=== PATIENT | female | born 1945 | race African-American/Black ===

== ENCOUNTER 2022-10-23 10:57 | Outpatient (OUT) | payer MEDICARE, SELFPAY ==
[2022-10-23 12:07] LABS: Basophils Percent Auto 0.8 % (0.2-2.0); Eosinophils Absolute Auto 0.1 10^3/uL (0.0-0.7); Hematocrit 39.2 % (36.0-48.0); Hemoglobin 12.3 g/dL (12.0-16.0); Immature Granulocytes Abs Auto 0.01 10^3/uL (0.00-0.03); Immature Granulocytes Pct Auto 0.3 % (0.0-0.5); Lymphocytes Absolute Auto 1.9 10^3/uL (1.2-3.8); Lymphocytes Percent Auto 52.7 % (20.5-60.0); Mean Corpuscular HGB Conc 31.4 g/dL (29.9-35.2); Mean Corpuscular Hemoglobin 27.7 pg (26.7-34.0); Mean Corpuscular Volume 88.3 fL (81.0-99.0); Mean Platelet Volume 9.4 fL (9.5-13.5); Monocytes Absolute Auto 0.3 10^3/uL (0.3-0.8); Neutrophils Absolute Auto 1.3 10^3/uL (1.4-6.5); Neutrophils Percent Auto 37.2 % (43.0-75.0); Platelet Count 305 10^3/uL (150-450); Red Blood Count 4.44 10^6/uL (4.20-5.40); White Blood Count 3.6 10^3/uL (4.0-11.0)
[2022-10-23 12:17] LABS: Estimated Average Glucose 97 mg/dL
[2022-10-23 12:27] LABS: Alanine Aminotransferase 16 U/L (14-59); Albumin Level 3.8 g/dL (3.4-5.0); Alkaline Phosphatase 60 U/L (46-116); Anion Gap 9.3; Aspartate Amino Transferase 12 U/L (15-37); BUN Creatinine Ratio 30.6; Bilirubin Total 0.6 mg/dL (0.2-1.0); Calcium 9.2 mg/dL (8.5-10.1); Carbon Dioxide 29.7 mmol/L (21.0-32.0); Chloride 107 mmol/L (98-107); Chol HDL Ratio 3.8; Cholesterol 208 mg/dL (<=200); Estimated GFR (African America >60 (>=60); Estimated GFR (Non-African Ame >60 (>=60); Free T3 2.56 pg/mL (2.18-3.98); Globulin 3.8 g/dL; Glucose 85 mg/dL (74-106); HDL Cholesterol 55 mg/dL (40-60); Sodium 142 mmol/L (136-145); Thyroid Stimulating Hormone 0.701 uIU/mL (0.358-3.740); Total Protein 7.6 g/dL (6.4-8.2); Triglycerides 67 mg/dL (<=150); VLDL CHOLESTEROL 13.4 mg/dL
[2022-10-24 14:10] LABS: Insulin 7.3 uIU/mL (2.6-24.9)
== END 2022-10-23 10:58 | disposition home or self-care (01) ==
LOC: LAB 11:03
PROVIDERS: PCP Family Medicine; Visit Provider Nurse Practitioner Family
DX: E78.5 Hyperlipidemia, unspecified (principal)
CPT/HCPCS: 36415; 80053; 80061; 82306; 83036; 83525; 83540; 84436; 84443; 84481; 85025

== ENCOUNTER 2022-11-02 11:50 | Outpatient (REF) | payer MEDICARE, SELFPAY ==
[2022-11-02 14:59] LABS: Occult Blood Negative
== END 2022-11-02 11:51 | disposition home or self-care (01) ==
LOC: LAB 11:50
PROVIDERS: PCP Family Medicine; Visit Provider Nurse Practitioner Family
DX: Z12.12 Encounter for screening for malignant neoplasm of rectum (principal)
CPT/HCPCS: G0328

== ENCOUNTER 2023-01-13 11:01 | Observation (INO) | payer MEDICARE, SELFPAY ==
[2023-01-13] VITALS (13 sets, daily range): BP systolic 129–162; BP diastolic 66–98; PULSE 58–82; RESP 16–20; TEMP 36.7–37.4; O2SAT 95–99; BMI 27.4; BMI 25.9
--- NOTE | 2023-01-13 11:33 | XR_ITS ---
The [address] [address] Patient Name: MATIAS MORTON MRN: [id number] date: 1945 Sex: F Assigned Patient Location: ER Current Patient Location: ER Accession/Order Number: [id number] Exam Date: 01/13/2023 11:40 Report Date: 01/13/2023 12:03 At the request of: JOSEF VELEZ Procedure: XR chest 1V EXAM: XR chest 1V at 1140 hours HISTORY: chest pain COMPARISON: 01/31/2022 TECHNIQUE: AP upright portable chest x-ray FINDINGS: The heart is not enlarged and the vasculature is not distended. No acute infiltrate, effusion or pneumothorax is identified. The osseous structures are grossly intact. XR/XR chest 1V IMPRESSION: No acute infiltrate or evidence of cardiac decompensation. The overall appearance of the chest is essentially unchanged. Electronically authenticated by: MICH GOMEZ Date: 01/13/2023 12:03
--- NOTE | 2023-01-13 11:33 | ECG_ITS ---
The [facility] Test Date: 2023-01-13 Pat Name: MATIAS MORTON Department: Room: - Gender: Female Compliance Auditor: : 1945 Requested By: PAIGE ORDONEZ Order Number: [id number] Reading MD: PAIGE ORDONEZ Measurements Intervals [place] Rate: 76 P: 39 NC: 144 QRS: -54 QRSD: 120 T: 51 QT: 402 QTc: 432 Interpretive Statements 1100 Sinus rhythm 2450 Right bundle branch block 2630 Left anterior fascicular block 3114 Cannot rule out anterior myocardial infarction, age undetermined 5222 Moderate voltage criteria for LVH, may be normal variant 9150 abnormal ECG No previous ECG available for comparison Electronically Signed On 01-15-2023 7:20:18 EST by PAIGE ORDONEZ
--- NOTE | 2023-01-13 11:34 | ED.CHESTPAI1 ---
HPI - Chest Pain General Chief Complaint: Chest Pain Stated Complaint: CHEST PAIN Time Seen by Provider: 01/13/23 11:29 Source: patient Mode of arrival: walk-in History of Present Illness HPI narrative: 77-year-old female presents to the emergency department for chest pain. She's been having it intermittently since yesterday. It lasts about ten minutes at a time and it feels like a pressure and she points to the left side of her chest. She does not have it now. It was happening during the night. No trauma or fever. No cough or injury or unusual activity. Related Data Home Medications Medication Instructions Recorded Confirmed amoxicillin 875 mg tablet 875 mg PO Q12H 01/13/23 01/13/23 simvastatin 20 mg tablet 20 mg PO Q24H 01/13/23 01/13/23 Allergies Allergy/AdvReac Type Severity Reaction Status Date / Time No Known Drug Allergies Allergy Verified 01/13/23 11:17 Review of Systems ROS Narrative A ten point review of systems is negative except as noted above. Exam Narrative Exam Narrative: Nurses note and vital signs reviewed and patient is not hypoxic. General: The patient appears well and in no apparent distress. Patient is resting comfortably on cart. Skin: Warm, dry, no pallor noted. There is no rash noted. Head: Normocephalic, atraumatic Eye: Normal conjunctiva, no drainage Ears, Nose, Mouth, and Throat: oral mucosa is moist. Nares patent. Cardiovascular: Regular Rate and Rhythm Respiratory: Patient is in no distress, no accessory muscle use, lungs are clear to auscultation, no wheezing, rales or rhonchi Back: non-tender GI: soft and nontender Musculoskeletal: The patient has no evidence of calf tenderness, no pitting edema, symmetrical pulses noted bilaterally Neurological: A&O, normal speech Psychiatric: Cooperative Constitutional Vital Signs, click to edit/add: Last Vital Signs Temp 99.4 F 01/13/23 11:07 Pulse 78 01/13/23 11:07 Resp 16 01/13/23 11:07 BP 158/98 H 01/13/23 11:07 Pulse Ox 99 01/13/23 11:18 O2 Del Method Room Air 01/13/23 11:18 Course Vital Signs Vital signs: Vital Signs Temperature 99.4 F 01/13/23 11:07 Pulse Rate 78 01/13/23 11:07 Respiratory Rate 16 01/13/23 11:07 Blood Pressure 158/98 H 01/13/23 11:07 Pulse Oximetry 99 01/13/23 11:07 Oxygen Delivery Method Room Air 01/13/23 11:07 Temperature 99.4 F 01/13/23 11:07 Pulse Rate 78 01/13/23 11:07 Respiratory Rate 16 01/13/23 11:07 Blood Pressure 158/98 H 01/13/23 11:07 Pulse Oximetry 99 01/13/23 11:18 Oxygen Delivery Method Room Air 01/13/23 11:18 MDM - Chest Pain MDM Narrative Medical decision making narrative: her initial workup is negative including troponin. EKG shows no acute findings. She is symptom-free now. She was given aspirin here. She has a history of arthritis and requested medication for that and she was given IV Toradol for the arthritic pain. Case discussed with her PCP and she's being admitted. Findings are discussed with the patient and her . Differential Diagnosis Differential diagnosis: Likely pneumothorax, stable angina, unstable angina pectoris, atypical chest pain, st elevation myocardial infarction and chest pain Lab Data Labs: Lab Results 01/13/23 Range/Units 11:18 WBC 3.6 L (4.0-11.0) 10^3/uL RBC 4.57 (4.20-5.40) 10^6/uL Hgb 12.6 (12.0-16.0) g/dL Hct 41.2 (36.0-48.0) % MCV 90.2 (81.0-99.0) fL MCH 27.6 (26.7-34.0) pg MCHC 30.6 (29.9-35.2) g/dL RDW 13.7 (11.0-15.0) % Plt Count 308 (150-450) 10^3/uL MPV 9.5 (9.5-13.5) fL Neut % (Auto) 43.3 (43.0-75.0) % Lymph % (Auto) 49.2 (20.5-60.0) % Summers % (Auto) 5.8 (1.7-12.0) % Eos % (Auto) 1.1 (0.9-7.0) % Baso % (Auto) 0.6 (0.2-2.0) % Neut # (Auto) 1.6 (1.4-6.5) 10^3/uL Lymph # (Auto) 1.8 (1.2-3.8) 10^3/uL Summers # (Auto) 0.2 L (0.3-0.8) 10^3/uL Eos # (Auto) 0.0 (0.0-0.7) 10^3/uL Baso # (Auto) 0.0 (0.0-0.1) 10^3/uL Abs Immat Gran (auto) 0.00 (0.00-0.03) 10^3/uL Imm/Tot Granulo (auto) 0.0 (0.0-0.5) % Sodium 143 (136-145) mmol/L Potassium 3.4 L (3.5-5.1) mmol/L Chloride 107 (98-107) mmol/L Carbon Dioxide 30.2 (21.0-32.0) mmol/L Anion Gap 9.2 BUN 23.0 H (7.0-18.0) mg/dL Creatinine 0.76 (0.55-1.02) mg/dL Est GFR ( Amer) >60 (>=60) Est GFR (Non-Af Amer) >60 (>=60) BUN/Creatinine Ratio 30.3 Glucose 90 (74-106) mg/dL Calcium 9.3 (8.5-10.1) mg/dL Troponin I High Sens 8.5 (4.0-51.3) pg/mL Imaging Data Chest x-ray: Radiologist's impression: Procedure: XR chest 1V EXAM: XR chest 1V at 1140 hours HISTORY: chest pain COMPARISON: 01/31/2022 TECHNIQUE: AP upright portable chest x-ray FINDINGS: The heart is not enlarged and the vasculature is not distended. No acute infiltrate, effusion or pneumothorax is identified. The osseous structures are grossly intact. IMPRESSION: No acute infiltrate or evidence of cardiac decompensation. The overall appearance of the chest is essentially unchanged. Electronically authenticated by: MICH GOMEZ Date: 01/13/2023 12:03 ECG Data Attestation: I personally reviewed and interpreted this ECG as follows: (EKG on my interpretation shows sinus rhythm with a rate of 76 and a right bundle-branch block. No ST segment elevation.) Heart Score History: Moderately Suspicious ECG: Normal Age: >65 years Risk Factors: >3 Risk Factors/ HX of CAD:2 Troponin: <Normal Limit Total Heart Score Recommendations & Risks:: 5 Discharge Plan Discharge Chief Complaint: Chest Pain Clinical Impression: Chest pain Patient Disposition: Admitted as Observation Time of Disposition Decision: 12:18 Condition: Good Prescriptions / Home Meds: No Action amoxicillin 875 mg tablet 875 mg PO Q12H simvastatin 20 mg tablet 20 mg PO Q24H Referrals: Cristian Hung MD [Primary Care Provider] - 1 week
[2023-01-13] MEDS: ASPIRIN 81 MG TAB.CHEW 324 MG PO (11:37)
[2023-01-13 11:40] LABS: Basophils Percent Auto 0.6 % (0.2-2.0); Eosinophils Percent Auto 1.1 % (0.9-7.0); Hematocrit 41.2 % (36.0-48.0); Hemoglobin 12.6 g/dL (12.0-16.0); Lymphocytes Absolute Auto 1.8 10^3/uL (1.2-3.8); Lymphocytes Percent Auto 49.2 % (20.5-60.0); Mean Corpuscular HGB Conc 30.6 g/dL (29.9-35.2); Mean Corpuscular Hemoglobin 27.6 pg (26.7-34.0); Mean Corpuscular Volume 90.2 fL (81.0-99.0); Mean Platelet Volume 9.5 fL (9.5-13.5); Monocytes Absolute Auto 0.2 10^3/uL (0.3-0.8); Monocytes Percent Auto 5.8 % (1.7-12.0); Neutrophils Absolute Auto 1.6 10^3/uL (1.4-6.5); Neutrophils Percent Auto 43.3 % (43.0-75.0); Platelet Count 308 10^3/uL (150-450); Red Blood Count 4.57 10^6/uL (4.20-5.40); Red Cell Distribution Width 13.7 % (11.0-15.0); White Blood Count 3.6 10^3/uL (4.0-11.0)
[2023-01-13 11:56] LABS: Anion Gap 9.2; BUN Creatinine Ratio 30.3; Calcium 9.3 mg/dL (8.5-10.1); Carbon Dioxide 30.2 mmol/L (21.0-32.0); Chloride 107 mmol/L (98-107); Estimated GFR (African America >60 (>=60); Estimated GFR (Non-African Ame >60 (>=60); Glucose 90 mg/dL (74-106); Potassium 3.4 mmol/L (3.5-5.1); Sodium 143 mmol/L (136-145); Troponin I High Sensitivity 8.5 pg/mL (4.0-51.3)
[2023-01-13] MEDS: KETOROLAC TROMETHAMINE 30 MG/ML VIAL IVP (12:19)
--- NOTE | 2023-01-13 12:57 | CA_ITS ---
Patient Name: MATIAS MORTON MR#: [id number] : 1945 Exam Date: 01/13/2023 Ordering Doctor: DR Cristian Hung . ECHOCARDIOGRAM REPORT PROCEDURE: CA ECHO DOPPLER COMPLETE INDICATIONS: Dyspnea COMPARISON: None. DESCRIPTION: COMPLETE ECHOCARDIOGRAM Real-time transthoracic echocardiography with 2D, M-mode, spectral and color flow Doppler performed. QUALITY: Technical quality was good. LEFT VENTRICLE: Normal chamber size. Borderline left ventricular hypertrophy. Global left ventricular systolic function is normal. LV EF: Visual estimation of left ventricular ejection fraction is 65% DIASTOLIC: Diastolic function is indeterminate. ATRIAL SEPTUM: LEFT ATRIUM: Mild dilatation. RIGHT ATRIUM: Mild dilatation. RIGHT VENTRICLE: Normal chamber size. Normal right ventricular systolic function. TRICUSPID VALVE: Normal mobility and thickness. No stenosis with mild regurgitation. No evidence of pulmonary hypertension. RVSP 28 mmHg MITRAL VALVE: Normal mobility and thickness. No evidence of mitral valve stenosis. There is no mitral annular calcification. Mild mitral regurgitation. AORTIC VALVE: Normal trileaflet appearance. No visible sclerosis. Normal leaflet mobility. No evidence of aortic valve stenosis. Mild aortic regurgitation. AORTIC ROOT: Normal diameter and appearance. PULMONIC VALVE: Normal thickness and mobility. No stenosis. Mild regurgitation. PERICARDIUM: No evidence of pericardial effusion. IVC: Collapses with inspirations. PLEURA: CONCLUSION: 1. Normal ventricular systolic function. LVEF is 65%. 2. Mild biatrial dilatation. 3. Mild mitral, aortic, tricuspid and pulmonary regurgitation. 4. Normal right-sided pressures. 5. No pericardial effusion. Adult Echocardiography Procedure Report Left Ventricle LVEDD (3.7 - 5.6 cm): 4.22 cm LVESD (2.2 - 4.0 cm): 2.82 cm LVIVS thickness (0.6 - 1.2 cm): 1.10 cm LVPW thickness (0.5 - 1.0 cm): 1.00 cm e': 0.08 m/s E - e': 8.32 LVOT Max Gradient: 7.07 mm[Hg] LVOT Area (cm2): 1.33 m/s Peak Velocity (LVOT): 1.33 m/s Mean Velocity (LVOT): 0.81 m/s LVOT Diameter 1.87 cm Left Ventricular Ejection Fraction: 65% Left Atrium LA Volume Index (2D A2C): 39.66 ml/m2 Left Atrium Systolic Dimension: 3.65 cm Mitral Valve MV E to A Ratio: 0.52 Mitral Valve A-Wave Peak Velocity: 1.24 m/s Mitral Valve E-Wave Peak Velocity: 0.64 m/s Right Ventricle RV Internal Diastolic Dimension: 3.35 cm Aorta AO Root Diam: 2.99 cm Ascending Ao Diam: 3.07 cm Aortic Valve AoV Area (Peak Robinson): 2.59 cm2, 2.59 cm2 AoV Area (VTI): 2.24 cm2, 2.24 cm2 Peak Velocity(Antegrade Flow): 1.41 m/s Peak Gradient(Antegrade Flow): 7.94 mm[Hg] Mean Velocity(Antegrade Flow): 0.95 m/s Mean Gradient(Antegrade Flow): 4.13 mm[Hg] Velocity Time Integral: 35.98 cm Tricuspid Valve Peak Velocity (Regurgitant Flow): 2.33 m/s, 2.52 m/s, 2.17 m/s Pulmonic Valve Mean Gradient: 2.57 mm[Hg], 2.27 mm[Hg] Mean Velocity: 0.76 m/s, 0.70 m/s Peak Velocity: 1.07 m/s Peak Gradient: 4.97 mm[Hg], 4.21 mm[Hg] Right Atrium Right Atrium Systolic Pressure: 51.71 ml, 51.71 ml Dictated by: Jam Severino M.D. on 01/13/2023 at 19:32 Approved by: Jam Severino M.D. on 01/13/2023 at 19:36
[2023-01-13 13:57] LABS: SARS-CoV-2 Ag NEGATIVE (NEGATIVE)
[2023-01-13 14:17] LABS: Troponin I High Sensitivity 11.1 pg/mL (4.0-51.3)
[2023-01-13 14:19] LABS: Magnesium 2.3 mg/dL (1.8-2.4)
[2023-01-13 17:03] LABS: Troponin I High Sensitivity 11.9 pg/mL (4.0-51.3)
--- NOTE | 2023-01-13 17:51 | P.HP_ITS ---
H&P: HPI History of Present Illness Chief complaint: CHEST PAIN Narrative: Presented to the emergency room with increasing episodes of chest pain. Lasting 5 to 6 minutes at a time. Worse with activity. In ER initial workup was unremarkable. Patient admitted for workup and treatment of same. No history of coronary artery disease but she does have a history of hypercholesterolemia. Non-smoker. Review of Systems ROS Status of ROS 10 or more systems reviewed and unremarkable except as noted in history and below PFSH PFSH Medical History (Updated 01/13/23 @ 14:11 by Suzie Sandhu) GERD (gastroesophageal reflux disease) ?K21.9 - Gastro-esophageal reflux disease without esophagitis (ICD-10) High cholesterol ?E78.00 - Pure hypercholesterolemia, unspecified (ICD-10) Surgical History (Updated 01/13/23 @ 15:37 by Suzie Sandhu) H/O: hysterectomy ?Z90.710 - Acquired absence of both cervix and uterus (ICD-10) Family History (Updated 01/13/23 @ 15:40 by Suzie Sandhu) Father Family history of myocardial infarction Mother Family history of stroke Social History (Updated 01/13/23 @ 15:41 by Suzie Sandhu) Within the past year, how often did you have a drink containing alcohol: never Score interpretation: A score less than 3 is consistent with normal alcohol consumption. Smoking status: Never smoker Non-prescribed substance use: denies use Previous occupational history: retired Highest level of school completed/degree received: 11th grade Are you now , , , , never or living with a partner: Little interest or pleasure in doing things: not at all Feeling down, depressed, or hopeless: not at all Feel stressed/tense/nervous/anxious/difficulty sleeping: only a little Due to disability, difficulty making decisions: No Do you think of yourself as: straight/heterosexual Meds Home Medications and Allergies Home Medications Medication Instructions Recorded Confirmed Type amoxicillin 875 mg tablet 875 mg PO Q12H 01/13/23 01/13/23 History omeprazole 40 mg capsule,delayed 40 mg PO DAILY 01/13/23 01/13/23 History release simvastatin 20 mg tablet 20 mg PO Q24H 01/13/23 01/13/23 History Allergies Allergy/AdvReac Type Severity Reaction Status Date / Time No Known Drug Allergies Allergy Verified 01/13/23 11:17 Exam Constitutional Vital Signs, click to edit/add: Last Vital Signs Temp 98.1 F 01/13/23 13:00 Pulse 68 01/13/23 15:54 Resp 20 01/13/23 13:00 BP 162/86 H 01/13/23 13:00 Pulse Ox 99 01/13/23 15:27 O2 Del Method Room Air 01/13/23 15:27 Documenting provider has reviewed patient's vital signs: yes Common normals: no apparent distress HENAZ Common normals: normocephalic and moist oral mucous membranes Chest Common normals: inspection of chest normal and palpation of chest normal Respiratory Common normals: normal respiratory effort and no use of accessory muscles Cardio Common normals: no JVD, regular rate, regular rhythm and no murmurs GI Common normals: Normal to inspection, nondistended, normoactive bowel sounds present Extremity Common normals: normal to inspection Results Labs Labs: Short CBC 01/13/23 Range/Units 11:18 WBC 3.6 L (4.0-11.0) 10^3/uL Hgb 12.6 (12.0-16.0) g/dL Hct 41.2 (36.0-48.0) % Plt Count 308 (150-450) 10^3/uL BMP 01/13/23 11:18 Sodium 143 Potassium 3.4 L Chloride 107 Carbon Dioxide 30.2 BUN 23.0 H Creatinine 0.76 Glucose 90 Calcium 9.3 Assessment and Plan Assessment and Plan (1) Chest pain: (2) GERD (gastroesophageal reflux disease): Plan Patient with accelerating episodes of chest pain. Worse with activity. Myocardial markers to rule out any myocardial infarction possibilities. Possibly still ischemia. Place patient on aspirin. Start nitrates.. Hypokalemia-supplement Neutropenia-possibly viral related-check COVID test GERD-add IV Protonix Uncontrolled blood pressure on admission. That is improved. Continue to monitor, Maintain patient observation status. If all the testing turns out well in the morning she will be discharged home
[2023-01-13] MEDS: ISOSORBIDE MONONITRATE 30 MG TAB.ER.24H PO (20:26)
[2023-01-13] MEDS: POTASSIUM CHLORIDE 10 MEQ ER TABLET 20 MEQ PO (20:27)
[2023-01-13] MEDS: PROSTAT 15 GM PROTEIN/100 CAL 30 ML LIQUID PACKET FEED TUBE (20:27)
[2023-01-13] MEDS: PANTOPRAZOLE SODIUM 40 MG VIAL IV (20:28)
[2023-01-14 01:39] VITALS: PULSE 64
[2023-01-14 03:00] VITALS: PULSE 62
[2023-01-14 05:00] VITALS: PULSE 70
[2023-01-14 05:28] VITALS: BP 121/76; PULSE 60; RESP 18; TEMP 36.7; O2SAT 96
[2023-01-14 05:28] LABS: Eosinophils Absolute Auto 0.1 10^3/uL (0.0-0.7); Eosinophils Percent Auto 1.9 % (0.9-7.0); Hematocrit 35.8 % (36.0-48.0); Hemoglobin 10.9 g/dL (12.0-16.0); Lymphocytes Absolute Auto 2.3 10^3/uL (1.2-3.8); Lymphocytes Percent Auto 54.5 % (20.5-60.0); Mean Corpuscular HGB Conc 30.4 g/dL (29.9-35.2); Mean Corpuscular Hemoglobin 27.7 pg (26.7-34.0); Mean Corpuscular Volume 90.9 fL (81.0-99.0); Mean Platelet Volume 9.8 fL (9.5-13.5); Monocytes Absolute Auto 0.3 10^3/uL (0.3-0.8); Monocytes Percent Auto 7.7 % (1.7-12.0); Neutrophils Absolute Auto 1.5 10^3/uL (1.4-6.5); Neutrophils Percent Auto 34.9 % (43.0-75.0); Platelet Count 286 10^3/uL (150-450); Red Blood Count 3.94 10^6/uL (4.20-5.40); Red Cell Distribution Width 13.9 % (11.0-15.0); White Blood Count 4.2 10^3/uL (4.0-11.0)
[2023-01-14] MEDS: ACETAMINOPHEN 500 MG TABLET 1000 MG PO (05:38)
[2023-01-14 05:42] LABS: Anion Gap 10.9; BUN Creatinine Ratio 42.9; Calcium 8.8 mg/dL (8.5-10.1); Carbon Dioxide 26.3 mmol/L (21.0-32.0); Chloride 110 mmol/L (98-107); Estimated GFR (African America >60 (>=60); Estimated GFR (Non-African Ame >60 (>=60); Glucose 90 mg/dL (74-106); Potassium 4.2 mmol/L (3.5-5.1); Sodium 143 mmol/L (136-145); Troponin I High Sensitivity 6.3 pg/mL (4.0-51.3)
--- NOTE | 2023-01-14 07:25 | P.DS_ITS ---
DS: Providers Provider Date of admission: 01/13/23 12:11 Primary care physician: Cristian Hung MD Consults: 01/13/23 12:57 Occupational Therapy Eval and Treat Routine Reason for consultation: Only if needed for Rehab Has provider been notified: No Physical Therapy Eval and Treat Routine Reason for consultation: Eval and Treat Has provider been notified: No DS: Diagnosis Discharge Diagnosis (1) Chest pain: (2) GERD (gastroesophageal reflux disease): Plan Patient with accelerating episodes of chest pain. Worse with activity. Hypokalemia Neutropenia GERD Uncontrolled blood pressure on admission Possible acute blood loss anemia, hemoglobin down almost 2 g from admission DS: Summary Hospital Course Hospital Course: Patient presented to the emergency room with increasing episodes of chest pain. At last between 8 to 10 minutes and then resolved with rest. She has had some increased pain with eating as well but did not feel like her chest pain she was experiencing on admission. Patient was admitted overnight. High-sensitivity troponins completed with no elevation. BNP was normal. Her chest pain had resolved this morning. At this point will have patient ambulate in the hallway. If she is stable with no chest pain. She can be discharged home in improving condition. Medications see list. Follow-up with her PCP for outpatient stress testing. Echocardiogram was reviewed and was normal. She did have some borderline elevation or high blood pressure on admission but that is improved with maintenance medications. Neutropenia has resolved. Did have a drop in hemoglobin which needs to be followed up on as an outpatient as well. Hypokal emia resolved as well. Time Spent with Patient Time attestation: Total time spent providing and/or coordinating discharge services: Exam Constitutional Vital Signs, click to edit/add: Last Vital Signs Temp 98.1 F 01/14/23 05:28 Pulse 60 01/14/23 05:28 Resp 18 01/14/23 05:28 BP 121/76 01/14/23 05:28 Pulse Ox 96 01/14/23 05:28 O2 Del Method Room Air 01/14/23 05:28 Documenting provider has reviewed patient's vital signs: yes Common normals: no apparent distress [facility] Common normals: normocephalic and moist oral mucous membranes Chest Common normals: inspection of chest normal and palpation of chest normal Respiratory Common normals: normal respiratory effort and no use of accessory muscles Cardio Common normals: no JVD, regular rate, regular rhythm and no murmurs GI Common normals: Normal to inspection, nondistended, normoactive bowel sounds present Extremity Common normals: normal to inspection DS: Data Data Completed and Pending Labs on day of discharge: Labs from last 24 hours 01/14/23 01/13/23 01/13/23 03:57 16:32 13:10 WBC 4.2 RBC 3.94 L Hgb 10.9 L Hct 35.8 L MCV 90.9 MCH 27.7 MCHC 30.4 RDW 13.9 Plt Count 286 MPV 9.8 Neut % (Auto) 34.9 L Lymph % (Auto) 54.5 Lane % (Auto) 7.7 Eos % (Auto) 1.9 Baso % (Auto) 1.0 Neut # (Auto) 1.5 Lymph # (Auto) 2.3 Lane # (Auto) 0.3 Eos # (Auto) 0.1 Baso # (Auto) 0.0 Abs Immat Gran (auto) 0.00 Imm/Tot Granulo (auto) 0.0 Sodium 143 Potassium 4.2 Chloride 110 H Carbon Dioxide 26.3 Anion Gap 10.9 BUN 30.0 H Creatinine 0.70 Est GFR ( Amer) >60 Est GFR (Non-Af Amer) >60 BUN/Creatinine Ratio 42.9 Glucose 90 Calcium 8.8 Magnesium 2.3 Troponin I High Sens 6.3 11.9 11.1 NT-Pro-B Natriuret Pep 61.0 SARS-CoV-2 (PCR) Negative 01/13/23 11:18 WBC 3.6 L RBC 4.57 Hgb 12.6 Hct 41.2 MCV 90.2 MCH 27.6 MCHC 30.6 RDW 13.7 Plt Count 308 MPV 9.5 Neut % (Auto) 43.3 Lymph % (Auto) 49.2 Lane % (Auto) 5.8 Eos % (Auto) 1.1 Baso % (Auto) 0.6 Neut # (Auto) 1.6 Lymph # (Auto) 1.8 Lane # (Auto) 0.2 L Eos # (Auto) 0.0 Baso # (Auto) 0.0 Abs Immat Gran (auto) 0.00 Imm/Tot Granulo (auto) 0.0 Sodium 143 Potassium 3.4 L Chloride 107 Carbon Dioxide 30.2 Anion Gap 9.2 BUN 23.0 H Creatinine 0.76 Est GFR ( Amer) >60 Est GFR (Non-Af Amer) >60 BUN/Creatinine Ratio 30.3 Glucose 90 Calcium 9.3 Magnesium Troponin I High Sens 8.5 NT-Pro-B Natriuret Pep SARS-CoV-2 (PCR) Discharge Plan Discharge Disposition: Home, Self-Care Condition: Good Discharge Medications: New meloxicam 7.5 mg tablet 7.5 mg PO DAILY PRN (Reason: arthritis) Qty: 14 1RF Continued amoxicillin 875 mg tablet 875 mg PO Q12H Patient Comments: 01/05/23 FOR 10 DAYS simvastatin 20 mg tablet 20 mg PO Q24H omeprazole 40 mg capsule,delayed release(DR/EC) 40 mg PO DAILY Forms: Portal Instructions
[2023-01-14 07:59] VITALS: PULSE 60
[2023-01-14] MEDS: ISOSORBIDE MONONITRATE 30 MG TAB.ER.24H PO (09:03)
[2023-01-14] MEDS: ASPIRIN 81 MG TABLET.DR PO (09:03)
[2023-01-14] MEDS: POTASSIUM CHLORIDE 10 MEQ ER TABLET 20 MEQ PO (09:03)
[2023-01-14] MEDS: PROSTAT 15 GM PROTEIN/100 CAL 30 ML LIQUID PACKET FEED TUBE (09:04)
--- NOTE | 2023-01-14 09:12 | CM.NOTE ---
Medicare Outpatient Observation Notice discussed with pt, pt verbalizes understanding and signs paper. Original given to pt and copy placed on pt's chart.
[2023-01-14 09:56] VITALS: PULSE 70
[2023-01-14 15:04] LABS: SARS-CoV-2 NAA NOT DETECTED (NOT DETECTE)
== END 2023-01-14 10:37 | disposition home or self-care (01) ==
LOC: ER 12:18 → MS 12:22
PROVIDERS: Admitting Provider Family Medicine; Emergency Provider Emergency Medicine; PCP Family Medicine; Visit Provider Family Medicine
DX: R07.9 Chest pain, unspecified (principal); E87.6 Hypokalemia; D70.9 Neutropenia, unspecified; K21.9 Gastro-esophageal reflux disease without esophagitis; I10 Essential (primary) hypertension; E78.00 Pure hypercholesterolemia, unspecified; D64.9 Anemia, unspecified; R06.00 Dyspnea, unspecified; Z20.822 Contact with and (suspected) exposure to COVID-19; Z79.899 Other long term (current) drug therapy; Z90.710 Acquired absence of both cervix and uterus
CPT/HCPCS: 36415; 71045; 80048; 83735; 83880; 84484; 85025; 87635; 87811; 93005; 93306; 94667; 94761; 96374; 96375; 99285; G0328; G0378

== ENCOUNTER 2023-02-24 08:20 | Outpatient (OUT) | payer MEDICARE, SELFPAY ==
--- NOTE | 2023-02-24 08:23 | MM_ITS ---
Patient Name: MATIAS MORTON MR#: [id number] : 1945 Exam Date: 02/24/2023 Ordering Doctor: DR Cristian Hung . RADIOLOGY REPORT PROCEDURE: MM TOMOSYNTHESIS SCREENING BI COMPARISON: MG MAMM SCREEN 3D PHYLLIS CAD, 02/23/2022. MG MAMM SCREEN PHYLLIS W CAD, 02/20/2021. MG MAMM SCREEN PHYLLIS W CAD, 01/29/2020. INDICATIONS: Screening Calculator Name NCI Breast Cancer Risk Assessment Tool 5 Year Breast Cancer Risk 1.70% Lifetime Breast Cancer Risk 3.00% Personal Breast Cancer No Personal Ovarian Cancer No Treatments None Family Cancers None LOCATION: [facility] BREAST COMPOSITION: Scattered areas fibroglandular density. FINDINGS: DIAGNOSTIC CATEGORY 1--NEGATIVE. RIGHT BREAST: No significant suspicious finding. No significant change has occurred. LEFT BREAST: No significant suspicious finding. No significant change has occurred. RECOMMENDATIONS: ROUTINE MAMMOGRAM AND CLINICAL EVALUATION IN 12 MONTHS. PLEASE NOTE: A NORMAL MAMMOGRAM DOES NOT EXCLUDE THE POSSIBILITY OF BREAST CANCER. A CLINICALLY SUSPICIOUS PALPABLE LUMP SHOULD BE BIOPSIED. Dictated by: Angel Madera M.D. on 02/24/2023 at 10:44 Approved by: Angel Madera M.D. on 02/24/2023 at 10:51
--- OUTSIDE RECORDS SUMMARY | 2023-02-24 08:23 | XMS_ITS | CCD ---
Author Name Unknown Address [address] [facility] [address] [place] [id number] Organization [facility] Care Team Providers Care Surveyor Mine Name Role Phone JOSÉ LUIS ., DR GIBSON Admitting Unavailable EDUARY ., DR GIBSON Attending Unavailable HOY ., DR GIBSON Primary Care Unavailable EDUARY ., DR GIBSON Consulting Unavailable MAURICE, DR SANIYA Theodore Consulting Unavailable JORGE ., DR XIONG Admitting Unavailable JORGE ., DR XIONG Attending Unavailable HOY ., DR GIBSON Primary Care Unavailable JORGE ., DR XIONG Consulting Unavailable RADHA, DR PINKY Osborn Consulting Unavailable EDUARY ., DR GIBSON Primary Care Unavailable SONALI ., MONICA Admitting Unavailable SONALI ., MONICA Attending Unavailable SONALI ., MONICA Consulting Unavailable Saniya Victor Consulting Unavailable SAIRA VAUGHAN Consulting Unavailable JOSÉ LUIS ., DR GIBSON Primary Care Unavailable DIAB ., CECILLE Admitting Unavailable DIAB ., CECILLE Attending Unavailable DIAB ., CECILLE Consulting Unavailable JOSÉ LUIS ., DR GIBSON Primary Care Unavailable JOSEF VELEZ Admitting Unavailable JOSEF VELEZ Attending Unavailable RADHA, DR PINKY Osborn Consulting Unavailable JOSEF VELEZ Consulting Unavailable Problems Active Problems Problem Classification Problem Date Documented Date Episodic/Chronic Disorders of lipid metabolism (1 source) Pure hypercholesterolemia, unspecified; Translations: [PURE HYPERCHOLESTEROLEMIA UNSPEC] Onset: 3 Chronic Essential hypertension (1 source) Essential (primary) hypertension; Translations: [ESSENTIAL PRIMARY HYPERTENSION] Onset: 3 Chronic Headache; including migraine (1 source) Headache; including migraine; Translations: [HEADACHE UNSPECIFIED] Onset: 2 Other female genital disorders (4 sources) Other specified conditions associated with female genital organs and menstrual cycle; Translations: [OTH SPEC COND FE GEN ORG MENST CYCL] Onset: 3 Episodic Other liver diseases (1 source) Fatty (change of) liver, not elsewhere classified; Translations: [FATTY CHANGE LIVER NEC] Onset: 3 Chronic Unclassified (1 source) CONTACT W/AND (SUSP) EXPOS COVID-19; Translations: [CONTACT W/AND (SUSP) EXPOS COVID-19] Onset: 2 Past or Other Problems Problem Classification Problem Date Documented Da te Episodic/Chronic Abdominal pain (7 sources) Lower abdominal pain, unspecified; Translations: [Unspecified abdominal pain] Onset: 01-31-2022 Episodic Nausea and vomiting (1 source) Nausea; Translations: [NAUSEA] Onset: 02-03-2022 Episodic Other aftercare (1 source) 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; Translations: [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 THERAPY] Onset: 03-09-2022 Episodic Other gastrointestinal disorders (1 source) Constipation, unspecified; Translations: [CONSTIPATION UNSPECIFIED] Onset: 03-09-2022 Episodic Other gastrointestinal disorders (3 sources) Diarrhea, unspecified; Translations: [DIARRHEA UNSPECIFIED] Onset: 08-22-2021 Episodic Other screening for suspected conditions (not mental disorders or infectious disease) (4 sources) Encounter for screening mammogram for malignant neoplasm of breast; Translations: [ENC SCR MAMMO MALIG NEOPLASM BREAST] Onset: 02-23-2022 Episodic Urinary tract infections (1 source) Urinary tract infection, site not specified; Translations: [UTI SITE NOT SPECIFIED] Onset: 02-03-2022 Episodic Results Test Name Value Interpretation Reference Range Facil ity US PELVIS TRANSVAGon 023 US PELVIS TRANSVAG EXAMINATION: US PELVIS TRANSVAG HISTORY: Disorder of female genital organs COMPARISON: No relevant comparison available. TECHNIQUE: Transabdominal and transvaginal sonographic examination. FINDINGS: UTERUS: Prior hysterectomy. RIGHT OVARY: Not seen. LEFT OVARY: Not seen. CUL-DE-SAC: Unremarkable. No significant free fluid. BLADDER: Unremarkable. OTHER: None. IMPRESSION: 1. Prior hysterectomy. 2. No suspicious findings. Electronically authenticated by: PINKY GARCIA Date: 2022-06-15 15:[address] [facility] MG MAMM SCREEN 3D PHYLLIS CADon 02-23-2022 MG MAMM SCREEN 3D PHYLLIS CAD Patient: SELENEMATIAS Exam Date: 02/23/2022 : 1945 Gender:F Ordering : DR PAIGE ORDONEZ . Admission #: [id number] Family : Order #: [id number] CLICK HERE TO VIEW EXAM RADIOLOGY REPORT PROCEDURE: MAMMOGRAM SCREENING 3D BILATERAL CAD COMPARISON: MG MAMM SCREEN PHYLLIS W CAD, 02/20/2021. MG MAMM SCREEN PHYLLIS W CAD, 01/29/2020. INDICATIONS: Screening mammography Calculator Name NCI Breast Cancer Risk Assessment Tool 5 Year Breast Cancer Risk 1.70% Lifetime Breast Cancer Risk 3.30% Personal Breast Cancer No Personal Ovarian Cancer No Treatments None Family Cancers None LOCATION: [facility] BREAST COMPOSITION: Scattered areas fibroglandular density. FINDINGS: DIAGNOSTIC CATEGORY 1--NEGATIVE. NO CHANGE FROM COMPARISON ASSESSMENT. Scattered benign-appearing calcifications are present. Scattered benign-appearing lymph nodes are present. RIGHT BREAST: No significant suspicious finding. LEFT BREAST: No significant suspicious finding. RECOMMENDATIONS: ROUTINE MAMMOGRAM AND CLINICAL EVALUATION IN 12 MONTHS. PLEASE NOTE: A NORMAL MAMMOGRAM DOES NOT EXCLUDE THE POSSIBILITY OF BREAST CANCER. A CLINICALLY SUSPICIOUS PALPABLE LUMP SHOULD BE BIOPSIED. Dictated by: Saniya Torres MD on 02/24/2022 at 10:58 Approved by: Saniya Torres MD on 02/24/2022 at 11:01 Normal [facility] CARDIAC ROLANDO ADMITon 022 CK [Catalytic activity/Vol] 87 U/L Normal 26-[address] [facility] Comment on above: Performed By: #### C MADM, LIPA, CMP #### [facility] [address] [address] [address] Suraj Choe CK.MB [Mass/Vol] 0.92 ng/mL Normal <=3.60 [facility] Comment on above: Performed By: #### C MADM, LIPA, CMP #### [facility] [address] [place], [place] [address] Dr. Suraj Choe HSTROP 7.5 pg/mL Normal 4.0-51.[address] [facility] Comment on above: Result Comment: CUT- OFF POINTS HAVE BEEN ESTABLISHED BASED ON THE FOURTH UNIVERSAL DEFINITIONS OF MYOCARDIAL INFARCTION. THE UPPER REFERENCE LIMIT (URL) OF TROPONIN, DEFINED THE 99TH PERCENTILE OF cTnI DISTRIBUTION IN A REFERENCE POPULATION, HAS BEEN CONFIRMED THE DECISION THRESHOLD FOR [place] DIAGNOSIS. Performed By: #### C DANIEL BAKER, CMP #### [facility] [address] [address] [address] Suraj Choe NICHOLAS 28 ng/mL Normal 9-[address] [facility] Comment on above: Performed By: #### C DANIEL BAKER, CMP #### [facility] [address] [address] [address] Suraj Choe CBC AUTO DIFFon 01-31-2022 BASO # 0.0 103/ul Normal 0.0-0.1 [facility] Comment on above: Performed By: #### C BC #### [facility] [address] [place] [address] Dr. Suraj Choe Basophils/100 WBC (Bld) 0.7 % Normal 0.2-2.0 [facility] Comment on above: Performed By: #### C BC #### [facility] [address] [place] [address] Dr. Suraj Choe EO # 0.1 103/ul Normal 0.0-0.7 [facility] Comment on above: Performed By: #### C BC #### [facility] [address] [place] [address] Dr. Suraj Choe Eosinophils/100 WBC (Bld) 1.4 % Normal 0.9-7.0 [facility] Comment on above: Performed By: #### C BC #### [facility] [address] [place] [address] Dr. Suraj Choe Erythrocyte distribution width (RBC) [Ratio] 14.2 % Normal 11.0-15.0 [facility] Comment on above: Performed By: #### C BC #### [facility] [address] [place] [address] Dr. Suraj Choe Hematocrit (Bld) [Volume fraction] 38.6 % Normal 36.0-48.0 [facility] Comment on above: Performed By: #### C BC #### [facility] [address] [place] [address] Dr. Suraj Choe Hemoglobin (Bld) [Mass/Vol] 12.3 g/dL Normal 12.0-16.0 [facility] Comment on above: Performed By: #### C BC #### [facility] [address] [place] [address] Dr. Suraj Choe IG # 0.01 10e3/ul Normal 0.00-0.03 [facility] Comment on above: Performed By: #### C BC #### [facility] [address] [place] [address] Dr. Suraj Choe IG % 0.2 % Normal 0.0-0.5 [facility] Comment on above: Performed By: #### C BC #### [facility] [address] [place] [address] Dr. Suraj Choe LYMPH # 2.1 103/ul Normal 1.2-3.8 [facility] Comment on above: Performed By: #### C BC #### [facility] [address] [place] [address] Dr. Suraj Choe Lymphocytes/100 WBC (Bld) 50.7 % Normal 20.5-60.0 [facility] Comment on above: Performed By: #### C BC #### [facility] [address] [place] [address] Dr. Suraj Choe MANUAL DIFF REQ NO Normal [facility] Comment on above: Performed By: #### C BC #### [facility] [address] [place] [address] Dr. Suraj Choe MCH (RBC) [Entitic mass] 27.6 pg Normal 26.7-34.0 [facility] Comment on above: Performed By: #### C BC #### [facility] [address] [place] [address] Dr. Suraj Choe MCHC (RBC) [Mass/Vol] 31.9 g/dL Normal 29.9-35.2 [facility] Comment on above: Performed By: #### C BC #### [facility] [address] [place] [address] Dr. Suraj Choe MCV (RBC) [Entitic vol] 86.5 fL Normal 81.0-99.0 [facility] Comment on above: Performed By: #### C BC #### [facility] [address] [place] [address] Dr. Suraj Choe MONO # 0.3 103/ul Normal 0.3-0.8 [facility] Comment on above: Performed By: #### C BC #### [facility] [address] [place] [address] Dr. Suraj Choe Monocytes/100 WBC (Bld) 5.9 % Normal 1.7-12.0 [facility] Comment on above: Performed By: #### C BC #### [facility] [address] [place] [address] Dr. Suraj Choe NEUT # 1.7 103/ul Normal 1.4-6.5 [facility] Comment on above: Performed By: #### C BC #### [facility] [address] [place] [address] Dr. Suraj Choe Neutrophils/100 WBC (Bld) 41.1 % Critically low 43.0-75.0 [facility] Comment on above: Performed By: #### C BC #### [facility] [address] [place] [address] Dr. Suraj Choe Platelet mean volume (Bld) [Entitic vol] 9.6 fL Normal 9.5-13.5 [facility] Comment on above: Performed By: #### C BC #### [facility] [address] [place] [address] Dr. Suraj Choe PLT 309 103/ul Normal 150-[address] [facility] Comment on above: Performed By: #### C BC #### [facility] [address] [place] [address] Dr. Suraj Choe RBC 4.46 106/ul Normal 4.20-5.[address] [facility] Comment on above: Performed By: #### C BC #### [facility] [address] [place] [address] Dr. Suraj Choe WBC 4.2 103/ul Normal 4.0-11.[address] [facility] Comment on above: Performed By: #### C BC #### [facility] [address] [place] [address] ABD/PELVIS WO CONon 01-31 CT ABD/PELVIS WO CON EXAMINATION: CT ABD/PELVIS WO CON, 01/31/2022 12:55 PM PST HISTORY: NAUSEA WITH VOMITING, UNSPECIFIED COMPARISON: 05/20/2019 TECHNIQUE: CT scan of the abdomen and pelvis was performed without IV contrast. CT dose reduction technique was used, including Automated Exposure Control. FINDINGS: Lung: Mild basilar atelectasis. Liver: No significant finding. Gallbladder: Cholelithiasis. Spleen: No significant finding. Pancreas: No significant finding. Adrenal glands: No significant finding. Kidneys, ureters and bladder: No renal/urinary tract calculi. Bowel: Colonic diverticulosis without diverticulitis. Multiple loops of small bowel in the left hemiabdomen/paracolic gutter, displacing the descending colon, similar to prior exam. No evidence of bowel obstruction. Peritoneum/retroperit oneum: No significant finding. Lymph nodes: No significant finding. Vessels: No significant finding. Body wall: Small fat-containing umbilical hernia. Reproductive: Uterus absent. Bones: No significant finding. IMPRESSION: No acute findings. Electronically authenticated by: SAIRA VAUGHAN Date: 2022-01-31 17:03 Normal [facility] CT HEAD WO CONon 01-31-2022 CT HEAD WO CON EXAMINATION: CT HEAD WO CON HISTORY: NAUSEA WITH VOMITING, UNSPECIFIED COMPARISON: None. TECHNIQUE: CT examination of the head without IV contrast. Dose reduction techniques were achieved by using automated exposure control and/or adjustment of mA and/or kV according to patient size and/or use of iterative reconstruction technique. FINDINGS: No acute intracranial hemorrhage. No midline shift. Basilar cisterns are patent. Ventricles reflect volume loss. Nicole-white matter differentiation is maintained. Enlarged empty sella. Globes unremarkable. Orbits are unremarkable. Air cells clear. No skull fracture. IMPRESSION: No acute findings. Electronically authenticated by: SAIRA VAUGHAN Date: 2022-01-31 17:06 Normal [facility] CULTURE URINEon 01-31-2022 CULTURE URINE Culture Observations : MODERATE GROWTH OF MIXED GENITAL JEAN PAUL. NO POTENTIAL PATHOGENS SEEN. Normal [facility] Comment on above: Performed By: #### U RCX ####[facility] [address] [address]Dr. Suraj Choe Covid-19 PCR (CVDTBH)on 01-15 SARS-CoV-2 (COVID-19) RNA JERRY+probe Ql (Unsp spec) Not detected Normal NOT DETECTED [facility] Comment on above: Result Comment: This test is not yet approved or cleared by the [place] FDA. When there are no FDA-approved or cleared tests available, and other criteria are met, FDA can make tests available under an emergency access mechanism called an Emergency Use Authorization (EUA). The EUA for this test is supported by the [place] of Health and Human Service's (HHS's) declaration that circumstances exist to justify the emergency use of in vitro diagnostics for the detection and/or diagnosis of the virus that causes COVID-19. This EUA will remain in effect (meaning this test can be used) for the duration of the COVID-19 declaration justifying emergency of IVDs, unless it is terminated or revoked by FDA (after which the test may no longer be used). When diagnostic testing is negative, the possibility of a false negative should be considered in the context of a patient's recent exposures and the presence of clinical signs and symptoms consistent with SARS-CoV-2. Performed By: #### C VDTB #### [facility] [address] [address] [address] Suraj Choe ER URINE PROFILEon 2 Bilirubin Ql (U) Negative Normal NEGATIVE [facility] Comment on above: Performed By: #### GENA AGUILA ####[facility] [address] [address]Dr. Suraj Choe Clarity (U) SL CLOUDY Abnormal CLEAR [facility] Comment on above: Performed By: #### E TARIK UMICRO ####[facility] [address] [id number]. Suraj Choe Color (U) LT. YELLOW Normal YELLOW [facility] Comment on above: Performed By: #### E TARIK UMICRO ####[facility] [address] [id number]. Suraj Choe ERUAHD A micrscopic examination will be performed if indicated. Normal [facility] Comment on above: Performed By: #### PAN AGUILARO ####[facility] [address] [address]Dr. Suraj Choe Glucose Ql (U) Negative Normal NEGATIVE [facility] Comment on above: Performed By: #### PAN AGUILARO ####[facility] [address] [address]Dr. Suraj Choe Hemoglobin Ql (U) MODERATE Abnormal NEGATIVE [facility] Comment on above: Performed By: #### PAN AGUILARO ####[facility] [address] [address]Dr. Suraj Choe Ketones Ql (U) Negative Normal NEGATIVE [facility] Comment on above: Performed By: #### PAN AGUILARO ####[facility] [address] [place], [place] [address]Dr. Suraj Choe LEUKOCYTES MODERATE Abnormal NEGATIVE [facility] Comment on above: Performed By: #### PAN AGUILARO ####[facility] [address] [place], [place] [address]Dr. Suraj Choe Nitrite Ql (U) Negative Normal NEGATIVE [facility] Comment on above: Performed By: #### GENA AGUILA ####[facility] [address] [place], [place] [address]Dr. Suraj Choe pH (U) 6.0 [pH] Normal 5-[address] [facility] Comment on above: Performed By: #### GENA AGUILA ####[facility] [address] [place], [place] [address]Dr. Suraj Choe SPEC GRAVITY 1.015 Normal 1.005-<=1.025 [facility] Comment on above: Performed By: #### GENA AGUILA ####[facility] [address] [address]Dr. Suraj Choe UA PROTEIN Negative Normal NEGATIVE/ TRACE [facility] Comment on above: Performed By: #### GENA AGUILA ####[facility] [address] [place], [place] [address]Dr. Suraj Choe UR MICRO IND INDICATED Normal [facility] Comment on above: Performed By: #### GENA AGUILA ####[facility] [address] [place], [place] [address]Dr. Suraj Дмитрий Urobilinogen Qn (U) 1.0 {Dhiraj'U}/dL Normal 0.2 - 1. [address] [facility] Comment on above: Performed By: #### GENA AGUILA ####[facility] [address] [place], [place] [address]Dr. Suraj Choe INFLUENZA A AND B AGon 01-31 INFLUANEGH SEE BELOW Normal [facility] Comment on above: Result Comment: Nega tive for Flu A protein angiten. Infection due to Flu A cannot be ruled out. Flu A angiten in the sample may be below the detection limit of the test. Performed By: #### I NFLUAB ####[facility] [address] [place], [place] [address]Dr. Suraj Choe INFLUBNEGH SEE BELOW Normal [facility] Comment on above: Result Comment: Nega tive for Flu B protein antigen. Infection due to Flu B cannot be ruled out. Flu B antigen in the sample may be below the detection limit of the test. Performed By: #### I NFLUAB ####[facility] [address] [place], [place] [address]Dr. Suraj Choe INFLUENZA A AG Negative Normal NEGATIVE SEE COMMENT [facility] Comment on above: Performed By: #### I NFLUAB ####[facility] [address] [place], [place] [address]Dr. Suraj Choe INFLUENZA B AG Negative Normal NEGATIVE SEE COMMENT [facility] Comment on above: Performed By: #### I NFLUAB ####[facility] [address] [place], [place] [address]Dr. Suraj Choe INTERNAL CONTROLS Within Normal Limits Normal Wi thin Normal Limits [facility] Comment on above: Performed By: #### I NFLUAB ####[facility] [address] [place], [place] [address]Dr. Suraj Choe LIPASEon 01-31-2022 Lipase [Catalytic activity/Vol] 142.0 U/L Normal 73.0-393.0 [facility] Comment on above: Performed By: #### C MADM, LIPA, CMP #### [facility] [address] [address] [address] Suraj Choe PROF 14(COMP METB)on 022 Albumin [Mass/Vol] 3.7 g/dL Normal 3.4-5.0 [facility] Comment on above: Performed By: #### C MADM, LIPA, CMP #### [facility] [address] [address] [address] Suraj Choe Albumin/Globulin [Mass ratio] 1.0 {ratio} Normal [facility] Comment on above: Performed By: #### C MADM, LIPA, CMP #### [facility] [address] [address] [address] Suraj Choe ALP [Catalytic activity/Vol] 78 U/L Normal 46-116 [facility] Comment on above: Performed By: #### C MADM, LIPA, CMP #### [facility] [address] [address] [address] Suraj Choe ALT [Catalytic activity/Vol] 12 U/L Critically low 14-59 [facility] Comment on above: Performed By: #### C MADM, LIPA, CMP #### [facility] [address] [address] [address] Suraj Choe Anion gap [Moles/Vol] 6.3 mmol/L Normal [facility] Comment on above: Performed By: #### C MADM, LIPA, CMP #### [facility] [address] [address] [address] Suraj Choe AST [Catalytic activity/Vol] 23 U/L Normal 15-37 [facility] Comment on above: Performed By: #### C MADM, LIPA, CMP #### [facility] [address] [address] [address] Suraj Choe Bilirubin [Mass/Vol] 0.5 mg/dL Normal 0.2-1.0 [facility] Comment on above: Performed By: #### C BERONICA BAKERA, CMP #### [facility] [address] [place] [address] Dr. Suraj Choe Calcium [Mass/Vol] 9.7 mg/dL Normal 8.5-10.1 [facility] Comment on above: Performed By: #### C SAMUEL LIPA, CMP #### [facility] [address] [place] [address] Dr. Suraj Choe Chloride [Moles/Vol] 106 mmol/L Normal 98-[address] [facility] Comment on above: Performed By: #### C BERONICA BAKERA, CMP #### [facility] [address] [place] [address] Dr. Suraj Choe CO2 [Moles/Vol] 30.9 mmol/L Normal 21.0-32.0 [facility] Comment on above: Performed By: #### C BERONICA BAKERA, CMP #### [facility] [address] [place] [address] Dr. Suraj Choe Creatinine [Mass/Vol] 0.71 mg/dL Normal 0.55-1.02 [facility] Comment on above: Performed By: #### C BERONICA BAKERA, CMP #### [facility] [address] [place] [address] Dr. Suraj Choe EGFR-AF SCOTTISH >60 Normal >=60 [facility] Comment on above: Performed By: #### C BERONICA BAKERA, CMP #### [facility] [address] [place] [address] Dr. Suraj Choe EGFR-NON AF SCOTTISH >60 Normal >=60 [facility] Comment on above: Performed By: #### C BERONICA BAKERA, CMP #### [facility] [address] [place] [address] Dr. Suraj Choe Globulin (S) [Mass/Vol] 3.7 g/dL Normal [facility] Comment on above: Performed By: #### C SAMUEL LIPA, CMP #### [facility] [address] [address] [address] Suraj Choe Glucose [Mass/Vol] 92 mg/dL Normal 74-106 [facility] Comment on above: Performed By: #### C DANIEL BAKER, CMP #### [facility] [address] [place] [address] Dr. Suraj Choe Potassium [Moles/Vol] 4.2 mmol/L Normal 3.5-5.[address] [facility] Comment on above: Performed By: #### C DANIEL BAKER, CMP #### [facility] [address] [address] [address] Suraj Choe Protein [Mass/Vol] 7.4 g/dL Normal 6.4-8.2 [facility] Comment on above: Performed By: #### C BERONICA BAKERA, CMP #### [facility] [address] [address] [address] Suraj Choe Sodium [Moles/Vol] 139 mmol/L Normal 136-145 [facility] Comment on above: Performed By: #### C BERONICA BAKERA, CMP #### [facility] [address] [address] [address] Suraj Choe Urea nitrogen [Mass/Vol] 20.0 mg/dL Critically high 7.0-18.0 [facility] Comment on above: Performed By: #### C BERONICA BAKERA, CMP #### [facility] [address] [address] [address] Suraj Choe Urea nitrogen/Creatinine [Mass ratio] 28.2 mg/mg Normal [facility] Comment on above: Performed By: #### C BERONICA BAKERA, CMP #### [facility] [address] [address] [address] Suraj Choe PROTIMEon 01-31-2022 INR Coag (PPP) [Relative time] 1.10 {INR} Normal [facility] Comment on above: Performed By: #### P TT, PT ####[facility] [address] [place] [address]Dr. Suraj Choe INR GUIDELINES SEE BELOW Normal [facility] Comment on above: Result Comment: ANANYA RED INR: 2.0 - 3.0 CONDITIONS NOT LISTED BELOW 2.5 - 3.5 FOR PROSTHETIC HEART VALVE REPLACEMENT 2.5 - 3.5 RECURRENT THROMBOSIS Performed By: #### P TT, PT ####[facility] [address] [place] [address]Dr. Suraj Choe PT Coag (PPP) [Time] 11.8 s Critically high 9.0-11.[address] [facility] Comment on above: Performed By: #### P TT, PT ####[facility] [address] [place] [address]Dr. Suraj Choe PTTon 01-31-2022 aPTT Coag (Bld) [Time] 26.5 s Normal 22.3-36.[address] [facility] Comment on above: Performed By: #### P TT, PT ####[facility] [address] [place], [place] [address]Dr. Suraj Choe URINE MICROSCOPIC ONLYon BACTERIA SMALL Abnormal NONE SEEN The [facility] Comment on above: Performed By: #### PAN AGUILARO ####[facility] [address] [place], [place] [address]Dr. Suraj Choe Bacteria identified Cx Nom (U) INDICATED Normal [facility] Comment on above: Performed By: #### PAN AGUILARO ####[facility] [address] [place], [place] [address]Dr. Suraj Choe CAST NONE SEEN Normal NONE SEEN [facility] Comment on above: Performed By: #### Flori MONTANEZ UMICRO ####[facility] [address] [place], [place] [address]Dr. Suraj Choe Crystals LM Nom (Urine sed) NONE SEEN Normal NONE SEEN [facility] Comment on above: Performed By: #### FATOU AGUILAICRO ####[facility] [address] [place], [place] [address]Dr. Suraj Choe Epithelial cells LM Ql (Urine sed) MODERATE Abnormal NONE SEEN /RARE [facility] Comment on above: Performed By: #### E GENA MONTANEZ ####[facility] [address] [place], [place] [address]Nh. Suraj Choe MUCOUS NONE SEEN Normal NONE SEEN [facility] Comment on above: Performed By: #### GENA AGUILA ####[facility] [address] [place], [place] [address]Tr. Suraj Choe RBC 0-2 Normal 0-[address] [facility] Comment on above: Performed By: #### GENA AGUILA ####[facility] [address] [place], [place] [address]Zm. Suraj Choe WBC 2-5 Abnormal NONE SEEN The [facility] Comment on above: Performed By: #### GENA AGUILA ####[facility] [address] [place] [id number]. Suraj Choe XR CHEST 1 Von 01-31-2022 XR CHEST 1 V EXAMINATION: XR CHES T 1 V HISTORY: Headache COMPARISON: None. TECHNIQUE: Portable chest FINDINGS: The lung parenchyma is free of consolidation or infiltrate. No pneumothorax or pleural effusion. The cardiac, mediastinal and hilar contours are normal. The visualized osseous structures exhibit no gross abnormality. IMPRESSION: No acute cardiopulmonary abnormality. Electronically authenticated by: SANIYA VICTOR Date: 2022-01-31 16:59 Normal [facility] CBC AUTO DIFFon 08-22-2021 BASO # 0.0 103/ul Normal 0.0-0.[address] [facility] Comment on above: Performed By: #### C BC #### [facility] [address] [place] [address] Dr. Suraj Choe Basophils/100 WBC (Bld) 0.9 % Normal 0.2-2.[address] [facility] Comment on above: Performed By: #### C BC #### [facility] [address] [place] [address] Dr. Suraj Choe EO # 0.1 103/ul Normal 0.0-0.7 [facility] Comment on above: Performed By: #### C BC #### [facility] [address] [address] [address] Suraj Choe Eosinophils/100 WBC (Bld) 1.3 % Normal 0.9-7.0 [facility] Comment on above: Performed By: #### C BC #### [facility] [address] [place] [address] Dr. Suraj Choe Erythrocyte distribution width (RBC) [Ratio] 13.5 % Normal 11.0-15.0 [facility] Comment on above: Performed By: #### C BC #### [facility] [address] [place] [address] Dr. Suraj Choe Hematocrit (Bld) [Volume fraction] 40.5 % Normal 36.0-48.0 [facility] Comment on above: Performed By: #### C BC #### [facility] [address] [place] [address] Dr. Suraj Choe Hemoglobin (Bld) [Mass/Vol] 12.7 g/dL Normal 12.0-16.0 [facility] Comment on above: Performed By: #### C BC #### [facility] [address] [place] [address] Dr. Suraj Choe IG # 0.01 10e3/ul Normal 0.00-0.03 [facility] Comment on above: Performed By: #### C BC #### [facility] [address] [place] [address] Dr. Suraj Choe IG % 0.2 % Normal 0.0-0.5 [facility] Comment on above: Performed By: #### C BC #### [facility] [address] [place] [address] Dr. Suraj Choe LYMPH # 1.9 103/ul Normal 1.2-3.8 [facility] Comment on above: Performed By: #### C BC #### [facility] [address] [place] [address] Dr. Suraj Choe Lymphocytes/100 WBC (Bld) 42.8 % Normal 20.5-60.0 [facility] Comment on above: Performed By: #### C BC #### [facility] [address] [place] [address] Dr. Suraj Choe MANUAL DIFF REQ NO Normal [facility] Comment on above: Performed By: #### C BC #### [facility] [address] [address] [address] Suraj Choe MCH (RBC) [Entitic mass] 27.9 pg Normal 26.7-34.0 [facility] Comment on above: Performed By: #### C BC #### [facility] [address] [address] [address] Suraj Choe MCHC (RBC) [Mass/Vol] 31.4 g/dL Normal 29.9-35.2 [facility] Comment on above: Performed By: #### C BC #### [facility] [address] [place] [address] Dr. Suraj Choe MCV (RBC) [Entitic vol] 88.8 fL Normal 81.0-99.0 [facility] Comment on above: Performed By: #### C BC #### [facility] [address] [place] [address] Dr. Suraj Choe MONO # 0.3 103/ul Normal 0.3-0.8 [facility] Comment on above: Performed By: #### C BC #### [facility] [address] [place] [address] Dr. Suraj Choe Monocytes/100 WBC (Bld) 7.1 % Normal 1.7-12.[address] [facility] Comment on above: Performed By: #### C BC #### [facility] [address] [place] [address] Dr. Suraj Choe NEUT # 2.2 103/ul Normal 1.4-6.[address] [facility] Comment on above: Performed By: #### C BC #### [facility] [address] [place] [address] Dr. Suraj Choe Neutrophils/100 WBC (Bld) 47.7 % Normal 43.0-75.[address] [facility] Comment on above: Performed By: #### C BC #### [facility] [address] [place] [address] Dr. Suraj Choe Platelet mean volume (Bld) [Entitic vol] 9.4 fL Critically low 9.5-13.5 [facility] Comment on above: Performed By: #### C BC #### [facility] [address] [address] [address] Suraj Choe PLT 279 103/ul Normal 150-450 [facility] Comment on above: Performed By: #### C BC #### [facility] [address] [address] [address] Suraj Choe RBC 4.56 106/ul Normal 4.20-5.40 [facility] Comment on above: Performed By: #### C BC #### [facility] [address] [address] [address] Suraj Choe WBC 4.5 103/ul Normal 4.0-11.0 [facility] Comment on above: Performed By: #### C BC #### [facility] [address] [address] [address] Suraj Choe PROF CHEM 8 (BAS METB)on Anion gap [Moles/Vol] 10.2 mmol/L Normal [facility] Comment on above: Performed By: #### B MP ####[facility] [address] [place] [address]DrGemma Choe Calcium [Mass/Vol] 9.3 mg/dL Normal 8.5-10.1 [facility] Comment on above: Performed By: #### B MP ####[facility] [address] [place] [address]DrGemma Choe Chloride [Moles/Vol] 106 mmol/L Normal 98-[address] [facility] Comment on above: Performed By: #### B MP ####[facility] [address] [place] [address]DrGemma Choe CO2 [Moles/Vol] 28.7 mmol/L Normal 21.0-32.0 [facility] Comment on above: Performed By: #### B MP ####[facility] [address] [place] [address]DrGemma Choe Creatinine [Mass/Vol] 0.76 mg/dL Normal 0.55-1.02 [facility] Comment on above: Performed By: #### B MP ####[facility] [address] [place] [address]Dr. Suraj Choe EGFR-AF SCOTTISH >60 Normal >=60 [facility] Comment on above: Performed By: #### B MP ####[facility] [address] [place] [id number]. Suraj Choe EGFR-NON AF SCOTTISH >60 Normal >=[address] [facility] Comment on above: Performed By: #### B MP ####[facility] [address] [place] [id number]. Rachelshy Hcoe Glucose [Mass/Vol] 98 mg/dL Normal 74-106 [facility] Comment on above: Performed By: #### B MP ####[facility] [address] [place], [place] [address]Dr. Suraj Choe Potassium [Moles/Vol] 3.9 mmol/L Normal 3.5-5.[address] [facility] Comment on above: Performed By: #### B MP ####[facility] [address] [place], [place] [address]Dr. Rachelshy Дмитрий Sodium [Moles/Vol] 141 mmol/L Normal 136-145 [facility] Comment on above: Performed By: #### B MP ####[facility] [address] [place] [address]Dr. Rachelshy Дмитрий Urea nitrogen [Mass/Vol] 22.0 mg/dL Critically high 7.0-18.[address] [facility] Comment on above: Performed By: #### B MP ####[facility] [address] [place] [address]Dr. Suraj Choe Urea nitrogen/Creatinine [Mass ratio] 28.9 mg/mg Normal [facility] Comment on above: Performed By: #### B MP ####[facility] [address] [place], [place] [address]Dr. Suraj Дмитрий XR KUB 1 VIEWon 08-22-2021 XR KUB 1 VIEW EXAMINATION: XR KUB 1 VIEW HISTORY: Pain , diarrhea COMPARISON: No relevant comparison available. FINDINGS: BOWEL GAS PATTERN: No abnormal dilation or deviation. Moderate amount of stool throughout the colon. CALCIFICATIONS: None significant. OTHER: Negative. No abnormal gaseous collections. IMPRESSION: 1. No bowel obstruction or suspicious findings. 2. Moderate stool burden. Electronically authenticated by: PINKY GARCIA Date: 2021-08-22 16:[address] [facility] Encounters Encounter Date Encounter Type Care Provider Facility Start: 06-15-2022 End: 06-16-[address] TYRESE PATEL . Facility:[facility] Start: 03-07-2022 End: 03-07-[address] PAIGE ORDONEZ . Facility:[facility] Start: 02-23-2022 End: 02-24-[address] PAIGE ORDONEZ . Facility:[facility] Start: 01-31-2022 End: 01-31-[address] PAIGE ORDONEZ . Facility:[facility] Start: 08-22-2021 End: 08-22-[address] PAIGE ORDONEZ . Facility: Payers Date Payer Category Payer Medicare [id number] 1960 Medicare [id number] 1945 Unknown [id number] 2.16.84 [id number] 1945 Unknown [id number] 2.16.84 [id number] 1945 Unknown [id number] 2.16.84 [id number] 1945 Unknown [id number] 2.16.84 [id number] 1945 Unknown [id number] 2.16.84 [id number] Summary Purpose Family History No Family History Records Found Advance Directives No Advanced Directives Records Found Additional Source Comments INFORMATION SOURCE (unrecogn ized section and content) DATE CREATED AUTHOR 06/20/2022 [facility] FOR RECORDS PERTAINING TO PATIENTS WHO ARE OR HAVE BEEN ENROLLED IN A CHEMICAL DEPENDENCY/SUBSTANCEABUSE PROGRAM, SOME INFORMATION MAY BE OMITTED. This clinical summary was aggregated from multiple sources. Caution should be exercised in using it in the provision of clinical care. This summary normalizes information from multiple sources, and as a consequence, information in this document may materially change the coding, format and clinical context of patient data. In addition, data may be omitted in some cases. CLINICAL DECISIONS SHOULD BE BASED ON THE PRIMARY CLINICAL RECORDS. [employer] [facility]. provides no warranty or guarantee of the accuracy or completeness of information in this document.
== END 2023-02-24 08:21 | disposition home or self-care (01) ==
LOC: MAMMO 08:20
PROVIDERS: PCP Family Medicine; Visit Provider Family Medicine
DX: Z12.31 Encounter for screening mammogram for malignant neoplasm of breast (principal)
CPT/HCPCS: 77063; 77067

== ENCOUNTER 2023-02-24 08:24 | Outpatient (OUT) | payer MEDICARE, SELFPAY ==
--- NOTE | 2023-02-24 08:10 | NM_ITS ---
Patient Name: MATIAS MORTON MR#: [id number] : 1945 Exam Date: 02/24/2023 Ordering Doctor: YOSHI LUONG CNP RADIOLOGY REPORT PROCEDURE: NM NICHOLAS PERF SPECT REST STR COMPARISON: None. INDICATIONS: CHEST PAIN TECHNIQUE: Exam Description: Stress/Rest one day protocol gated SPECT Rest Imagin.0 mCi Tc-99m Cardiolite IV on 02/24/2023 Stress Imaging 30.2 mCi Tc-99m Cardiolite IV on 02/24/2023 Exercise Protocol: Mookie Heart Rate (bpm): Rest: 62 Max: 140 PMHR: 99 Blood Pressure: Rest: 152/90 Max: 208/92 Exercise Time: Minutes: 4 Seconds: 52 Stage Reached: Stage: 2 Mets 5.2 Symptoms: Rest and peak stress ECG findings were normal and the exercise portion of the study was normal per attending physician Dr. Gupta . For more details please see separate cardiac stress test report. FINDINGS: QUALITY OF STUDY: Excellent. PERFUSION DEFECT: None. LOCATION: N/A SIZE: N/A. SEVERITY: N/A. TYPE: N/A. WALL MOTION: Normal. LV SIZE: Normal. 32 mL. TID / TCD: None; 0.5 LVEF: Normal. Calculated EF 87%. SUMMARY: Myocardial perfusion imaging study is NORMAL. CONCLUSION: 1. Normal nuclear medicine myocardial perfusion scan. Dictated by: Angel Madera M.D. on 02/24/2023 at 15:35 Approved by: Angel Madera M.D. on 02/24/2023 at 15:36
--- OUTSIDE RECORDS SUMMARY | 2023-02-24 08:28 | XMS_ITS | CCD ---
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 Admission #: [id number] Family : Order #: [id number] CLICK HERE TO VIEW EXAM RADIOLOGY REPORT [...] Treatments None Family Cancers None LOCATION: [facility] BREAST COMPOSITION: Scattered areas fibroglandular density. [...] MD on 02/24/2022 at 11:01 Normal [facility] CARDIAC ROLANDO ADMITon 022 CK [Catalytic activity/Vol] 87 U/L Normal 26-192 [facility] Comment on above: Performed By: #### C MADM, LIPA, CMP #### [facility] [address] [address] [address] Suraj Choe CK.MB [Mass/Vol] 0.92 ng/mL Normal <=3.60 [facility] Comment on above: Performed By: #### C MADM, LIPA, CMP #### [facility] [address] [place], [place] [address] Dr. Suraj Choe HSTROP 7.5 pg/mL Normal 4.0-51.3 [facility] Comment on above: Result Comment: CUT- OFF POINTS HAVE BEEN ESTABLISHED BASED ON THE FOURTH UNIVERSAL DEFINITIONS OF MYOCARDIAL INFARCTION. THE UPPER REFERENCE LIMIT (URL) OF TROPONIN, DEFINED THE 99TH PERCENTILE OF cTnI DISTRIBUTION IN A REFERENCE POPULATION, HAS BEEN CONFIRMED THE DECISION THRESHOLD FOR [place] DIAGNOSIS. Performed By: #### C DANIEL BAKER, CMP #### [facility] [address] [address] [address] Suraj Choe NICHOLAS 28 ng/mL Normal 9-82 [facility] Comment on above: Performed By: #### C DANIEL BAKER, CMP #### [facility] [address] [address] [address] Suraj Choe CBC AUTO DIFFon 01-31-2022 BASO # 0.0 103/ul Normal 0.0-0.1 [facility] Comment on above: Performed By: #### C BC #### [facility] [address] [place] [address] Dr. Suraj Choe Basophils/100 WBC (Bld) 0.7 % Normal 0.2-2.0 [facility] Comment on above: Performed By: #### C BC #### [facility] [address] [place] [address] Dr. Suraj Choe EO # 0.1 103/ul Normal 0.0-0.7 [facility] Comment on above: Performed By: #### C BC #### [facility] [address] [place] [address] Dr. Suraj Choe Eosinophils/100 WBC (Bld) 1.4 % Normal 0.9-7.0 [facility] Comment on above: Performed By: #### C BC #### [facility] [address] [place] [address] Dr. Suraj Choe Erythrocyte distribution width (RBC) [Ratio] 14.2 % Normal 11.0-15.0 [facility] Comment on above: Performed By: #### C BC #### [facility] [address] [place] [address] Dr. Suraj Choe Hematocrit (Bld) [Volume fraction] 38.6 % Normal 36.0-48.0 [facility] Comment on above: Performed By: #### C BC #### [facility] [address] [place] [address] Dr. Suraj Choe Hemoglobin (Bld) [Mass/Vol] 12.3 g/dL Normal 12.0-16.0 [facility] Comment on above: Performed By: #### C BC #### [facility] [address] [place] [address] Dr. Suraj Choe IG # 0.01 10e3/ul Normal 0.00-0.03 [facility] Comment on above: Performed By: #### C BC #### [facility] [address] [place] [address] Dr. Suraj Choe IG % 0.2 % Normal 0.0-0.5 [facility] Comment on above: Performed By: #### C BC #### [facility] [address] [place] [address] Dr. Suraj Choe LYMPH # 2.1 103/ul Normal 1.2-3.8 [facility] Comment on above: Performed By: #### C BC #### [facility] [address] [place] [address] Dr. Suraj Choe Lymphocytes/100 WBC (Bld) 50.7 % Normal 20.5-60.0 [facility] Comment on above: Performed By: #### C BC #### [facility] [address] [place] [address] Dr. Suraj Choe MANUAL DIFF REQ NO Normal [facility] Comment on above: Performed By: #### C BC #### [facility] [address] [place] [address] Dr. Suraj Choe MCH (RBC) [Entitic mass] 27.6 pg Normal 26.7-34.0 [facility] Comment on above: Performed By: #### C BC #### [facility] [address] [place] [address] Dr. Suraj Choe MCHC (RBC) [Mass/Vol] 31.9 g/dL Normal 29.9-35.2 [facility] Comment on above: Performed By: #### C BC #### [facility] [address] [place] [address] Dr. Suraj Choe MCV (RBC) [Entitic vol] 86.5 fL Normal 81.0-99.0 [facility] Comment on above: Performed By: #### C BC #### [facility] [address] [place] [address] Dr. Suraj Choe MONO # 0.3 103/ul Normal 0.3-0.8 [facility] Comment on above: Performed By: #### C BC #### [facility] [address] [place] [address] Dr. Suraj Choe Monocytes/100 WBC (Bld) 5.9 % Normal 1.7-12.0 [facility] Comment on above: Performed By: #### C BC #### [facility] [address] [place] [address] Dr. Suraj Choe NEUT # 1.7 103/ul Normal 1.4-6.5 [facility] Comment on above: Performed By: #### C BC #### [facility] [address] [place] [address] Dr. Suraj Choe Neutrophils/100 WBC (Bld) 41.1 % Critically low 43.0-75.0 [facility] Comment on above: Performed By: #### C BC #### [facility] [address] [place] [address] Dr. Suraj Choe Platelet mean volume (Bld) [Entitic vol] 9.6 fL Normal 9.5-13.5 [facility] Comment on above: Performed By: #### C BC #### [facility] [address] [place] [address] Dr. Suraj Choe PLT 309 103/ul Normal 150-450 [facility] Comment on above: Performed By: #### C BC #### [facility] [address] [place] [address] Dr. Suraj Choe RBC 4.46 106/ul Normal 4.20-5.40 [facility] Comment on above: Performed By: #### C BC #### [facility] [address] [place] [address] Dr. Suraj Choe WBC 4.2 103/ul Normal 4.0-11.0 [facility] Comment on above: Performed By: #### C BC #### [facility] [address] [place] [address] ABD/PELVIS WO CONon [...] SAIRA VAUGHAN Date: 2022-01-31 17:03 Normal [facility] CT HEAD WO CONon 01-31-2022 CT [...] SAIRA VAUGHAN Date: 2022-01-31 17:06 Normal [facility] CULTURE URINEon 01-31-2022 CULTURE URINE Culture Observations : MODERATE GROWTH OF MIXED GENITAL JEAN PAUL. NO POTENTIAL PATHOGENS SEEN. Normal [facility] Comment on above: Performed By: #### U RCX ####[facility] [address] [address]Dr. Suraj Choe Covid-19 PCR (CVDTBH)on 01-15 SARS-CoV-2 (COVID-19) RNA JERRY+probe Ql (Unsp spec) Not detected Normal NOT DETECTED [facility] Comment on above: Result Comment: This test is not yet approved or cleared by the [place] FDA. When there are no FDA-approved or cleared tests available, and other criteria are met, FDA can make tests available under an emergency access mechanism called an Emergency Use Authorization (EUA). The EUA for this test is supported by the [place] of Health and Human Service's (HHS's) declaration [...] SARS-CoV-2. Performed By: #### C VDTB #### [facility] [address] [address] [address] Suraj Choe ER URINE PROFILEon 2 Bilirubin Ql (U) Negative Normal NEGATIVE [facility] Comment on above: Performed By: #### GENA AGUILA ####[facility] [address] [address]Dr. Suraj Choe Clarity (U) SL CLOUDY Abnormal CLEAR [facility] Comment on above: Performed By: #### E TARIK UMICRO ####[facility] [address] [id number]. Suraj Choe Color (U) LT. YELLOW Normal YELLOW [facility] Comment on above: Performed By: #### E TARIK UMICRO ####[facility] [address] [id number]. Suraj Choe ERUAHD A micrscopic examination will be performed if indicated. Normal [facility] Comment on above: Performed By: #### PAN AGUILARO ####[facility] [address] [address]Dr. Suraj Choe Glucose Ql (U) Negative Normal NEGATIVE [facility] Comment on above: Performed By: #### PAN AGUILARO ####[facility] [address] [address]Dr. Suraj Choe Hemoglobin Ql (U) MODERATE Abnormal NEGATIVE [facility] Comment on above: Performed By: #### PAN AGUILARO ####[facility] [address] [address]Dr. Suraj Choe Ketones Ql (U) Negative Normal NEGATIVE [facility] Comment on above: Performed By: #### PAN AGUILARO ####[facility] [address] [place], [place] [address]Dr. Suraj Choe LEUKOCYTES MODERATE Abnormal NEGATIVE [facility] Comment on above: Performed By: #### PAN AGUILARO ####[facility] [address] [place], [place] [address]Dr. Suraj Choe Nitrite Ql (U) Negative Normal NEGATIVE [facility] Comment on above: Performed By: #### GENA AGUILA ####[facility] [address] [place], [place] [address]Dr. Suraj Choe pH (U) 6.0 [pH] Normal 5-9 [facility] Comment on above: Performed By: #### GENA AGUILA ####[facility] [address] [place], [place] [address]Dr. Suraj Choe SPEC GRAVITY 1.015 Normal 1.005-<=1.025 [facility] Comment on above: Performed By: #### GENA AGUILA ####[facility] [address] [address]Dr. Suraj Choe UA PROTEIN Negative Normal NEGATIVE/ TRACE [facility] Comment on above: Performed By: #### GENA AGUILA ####[facility] [address] [place], [place] [address]Dr. Suraj Choe UR MICRO IND INDICATED Normal [facility] Comment on above: Performed By: #### GENA AGUILA ####[facility] [address] [place], [place] [address]Dr. Suraj Дмитрий Urobilinogen Qn (U) 1.0 {Dhiraj'U}/dL Normal 0.2 - 1. 0 [facility] Comment on above: Performed By: #### GENA AGUILA ####[facility] [address] [place], [place] [address]Dr. Suraj Choe INFLUENZA A AND B AGon 01-31 INFLUANEGH SEE BELOW Normal [facility] Comment on above: Result Comment: Nega tive for Flu A protein angiten. Infection due to Flu A cannot be ruled out. Flu A angiten in the sample may be below the detection limit of the test. Performed By: #### I NFLUAB ####[facility] [address] [place], [place] [address]Dr. Suraj Choe INFLUBNEGH SEE BELOW Normal [facility] Comment on above: Result Comment: Nega tive for Flu B protein antigen. Infection due to Flu B cannot be ruled out. Flu B antigen in the sample may be below the detection limit of the test. Performed By: #### I NFLUAB ####[facility] [address] [place], [place] [address]Dr. Suraj Choe INFLUENZA A AG Negative Normal NEGATIVE SEE COMMENT [facility] Comment on above: Performed By: #### I NFLUAB ####[facility] [address] [place], [place] [address]Dr. Suraj Choe INFLUENZA B AG Negative Normal NEGATIVE SEE COMMENT [facility] Comment on above: Performed By: #### I NFLUAB ####[facility] [address] [place], [place] [address]Dr. Suraj Choe INTERNAL CONTROLS Within Normal Limits Normal Wi thin Normal Limits [facility] Comment on above: Performed By: #### I NFLUAB ####[facility] [address] [place], [place] [address]Dr. Suraj Choe LIPASEon 01-31-2022 Lipase [Catalytic activity/Vol] 142.0 U/L Normal 73.0-393.0 [facility] Comment on above: Performed By: #### C MADM, LIPA, CMP #### [facility] [address] [address] [address] Suraj Choe PROF 14(COMP METB)on 022 Albumin [Mass/Vol] 3.7 g/dL Normal 3.4-5.0 [facility] Comment on above: Performed By: #### C MADM, LIPA, CMP #### [facility] [address] [address] [address] Suraj Choe Albumin/Globulin [Mass ratio] 1.0 {ratio} Normal [facility] Comment on above: Performed By: #### C MADM, LIPA, CMP #### [facility] [address] [address] [address] Suraj Choe ALP [Catalytic activity/Vol] 78 U/L Normal 46-116 [facility] Comment on above: Performed By: #### C MADM, LIPA, CMP #### [facility] [address] [address] [address] Suraj Choe ALT [Catalytic activity/Vol] 12 U/L Critically low 14-59 [facility] Comment on above: Performed By: #### C MADM, LIPA, CMP #### [facility] [address] [address] [address] Suraj Choe Anion gap [Moles/Vol] 6.3 mmol/L Normal [facility] Comment on above: Performed By: #### C MADM, LIPA, CMP #### [facility] [address] [address] [address] Suraj Choe AST [Catalytic activity/Vol] 23 U/L Normal 15-37 [facility] Comment on above: Performed By: #### C MADM, LIPA, CMP #### [facility] [address] [address] [address] Suraj Choe Bilirubin [Mass/Vol] 0.5 mg/dL Normal 0.2-1.0 [facility] Comment on above: Performed By: #### C BERONICA BAKERA, CMP #### [facility] [address] [place] [address] Dr. Suraj Choe Calcium [Mass/Vol] 9.7 mg/dL Normal 8.5-10.1 [facility] Comment on above: Performed By: #### C SAMUEL LIPA, CMP #### [facility] [address] [place] [address] Dr. Suraj Choe Chloride [Moles/Vol] 106 mmol/L Normal 98-107 [facility] Comment on above: Performed By: #### C BERONICA BAKERA, CMP #### [facility] [address] [place] [address] Dr. Suraj Choe CO2 [Moles/Vol] 30.9 mmol/L Normal 21.0-32.0 [facility] Comment on above: Performed By: #### C BERONICA BAKERA, CMP #### [facility] [address] [place] [address] Dr. Suraj Choe Creatinine [Mass/Vol] 0.71 mg/dL Normal 0.55-1.02 [facility] Comment on above: Performed By: #### C BERONICA BAKERA, CMP #### [facility] [address] [place] [address] Dr. Suraj Choe EGFR-AF NIGERIAN >60 Normal >=60 [facility] Comment on above: Performed By: #### C BERONICA BAKERA, CMP #### [facility] [address] [place] [address] Dr. Suraj Choe EGFR-NON AF NIGERIAN >60 Normal >=60 [facility] Comment on above: Performed By: #### C BERONICA BAKERA, CMP #### [facility] [address] [place] [address] Dr. Suraj Choe Globulin (S) [Mass/Vol] 3.7 g/dL Normal [facility] Comment on above: Performed By: #### C SAMUEL LIPA, CMP #### [facility] [address] [address] [address] Suraj Choe Glucose [Mass/Vol] 92 mg/dL Normal 74-106 [facility] Comment on above: Performed By: #### C DANIEL BAKER, CMP #### [facility] [address] [address] [address] Suraj Choe Potassium [Moles/Vol] 4.2 mmol/L Normal 3.5-5.1 [facility] Comment on above: Performed By: #### C DANIEL BAKER, CMP #### [facility] [address] [address] [address] Suraj Choe Protein [Mass/Vol] 7.4 g/dL Normal 6.4-8.2 [facility] Comment on above: Performed By: #### C BERONICA BAKERA, CMP #### [facility] [address] [address] [address] Suraj Choe Sodium [Moles/Vol] 139 mmol/L Normal 136-145 [facility] Comment on above: Performed By: #### C BERONICA BAKERA, CMP #### [facility] [address] [address] [address] Suraj Choe Urea nitrogen [Mass/Vol] 20.0 mg/dL Critically high 7.0-18.0 [facility] Comment on above: Performed By: #### C BERONICA BAKERA, CMP #### [facility] [address] [address] [address] Suraj Choe Urea nitrogen/Creatinine [Mass ratio] 28.2 mg/mg Normal [facility] Comment on above: Performed By: #### C BERONICA BAKERA, CMP #### [facility] [address] [address] [address] Suraj Choe PROTIMEon 01-31-2022 INR Coag (PPP) [Relative time] 1.10 {INR} Normal [facility] Comment on above: Performed By: #### P TT, PT ####[facility] [address] [address]Dr. Suraj Choe INR GUIDELINES SEE BELOW Normal [facility] Comment on above: Result Comment: ANANYA RED INR: 2.0 - 3.0 CONDITIONS NOT LISTED BELOW 2.5 - 3.5 FOR PROSTHETIC HEART VALVE REPLACEMENT 2.5 - 3.5 RECURRENT THROMBOSIS Performed By: #### P TT, PT ####[facility] [address] [address]Dr. Suraj Choe PT Coag (PPP) [Time] 11.8 s Critically high 9.0-11.6 [facility] Comment on above: Performed By: #### P TT, PT ####[facility] [address] [address]Dr. Suraj Choe PTTon 01-31-2022 aPTT Coag (Bld) [Time] 26.5 s Normal 22.3-36.2 [facility] Comment on above: Performed By: #### P TT, PT ####[facility] [address] [place], [place] [address]Dr. Suraj Choe URINE MICROSCOPIC ONLYon BACTERIA SMALL Abnormal NONE SEEN [facility] Comment on above: Performed By: #### PAN AGUILARO ####[facility] [address] [place], [place] [address]Dr. Suraj Choe Bacteria identified Cx Nom (U) INDICATED Normal [facility] Comment on above: Performed By: #### PAN AGUILARO ####[facility] [address] [place], [place] [address]Dr. Suraj Choe CAST NONE SEEN Normal NONE SEEN [facility] Comment on above: Performed By: #### Flori MONTANEZ UMICRO ####[facility] [address] [place], [place] [address]Dr. Suraj Choe Crystals LM Nom (Urine sed) NONE SEEN Normal NONE SEEN [facility] Comment on above: Performed By: #### FATOU AGUILAICRO ####[facility] [address] [place], [place] [address]Dr. Suraj Choe Epithelial cells LM Ql (Urine sed) MODERATE Abnormal NONE SEEN /RARE [facility] Comment on above: Performed By: #### E GENA MONTANEZ ####[facility] [address] [place], [place] [address]Xf. Suraj Choe MUCOUS NONE SEEN Normal NONE SEEN [facility] Comment on above: Performed By: #### GENA AGUILA ####[facility] [address] [place], [place] [address]Bz. Suraj Choe RBC 0-2 Normal 0-2 [facility] Comment on above: Performed By: #### GENA AGUILA ####[facility] [address] [place], [place] [address]Ya. Suraj Choe WBC 2-5 Abnormal NONE SEEN [facility] Comment on above: Performed By: #### GENA AGUILA ####[facility] [address] [id number]. Suraj Choe XR CHEST 1 Von 01-31-2022 [...] SANIYA VICTOR Date: 2022-01-31 16:59 Normal [facility] CBC AUTO DIFFon 08-22-2021 BASO # 0.0 103/ul Normal 0.0-0.1 [facility] Comment on above: Performed By: #### C BC #### [facility] [address] [place] [address] Dr. Suraj Choe Basophils/100 WBC (Bld) 0.9 % Normal 0.2-2.0 [facility] Comment on above: Performed By: #### C BC #### [facility] [address] [place] [address] Dr. Suraj Choe EO # 0.1 103/ul Normal 0.0-0.7 [facility] Comment on above: Performed By: #### C BC #### [facility] [address] [address] [address] Suraj Choe Eosinophils/100 WBC (Bld) 1.3 % Normal 0.9-7.0 [facility] Comment on above: Performed By: #### C BC #### [facility] [address] [place] [address] Dr. Suraj Choe Erythrocyte distribution width (RBC) [Ratio] 13.5 % Normal 11.0-15.0 [facility] Comment on above: Performed By: #### C BC #### [facility] [address] [place] [address] Dr. Suraj Choe Hematocrit (Bld) [Volume fraction] 40.5 % Normal 36.0-48.0 [facility] Comment on above: Performed By: #### C BC #### [facility] [address] [place] [address] Dr. Suraj Choe Hemoglobin (Bld) [Mass/Vol] 12.7 g/dL Normal 12.0-16.0 [facility] Comment on above: Performed By: #### C BC #### [facility] [address] [place] [address] Dr. Suraj Choe IG # 0.01 10e3/ul Normal 0.00-0.03 [facility] Comment on above: Performed By: #### C BC #### [facility] [address] [place] [address] Dr. Suraj Choe IG % 0.2 % Normal 0.0-0.5 [facility] Comment on above: Performed By: #### C BC #### [facility] [address] [place] [address] Dr. Suraj Choe LYMPH # 1.9 103/ul Normal 1.2-3.8 [facility] Comment on above: Performed By: #### C BC #### [facility] [address] [place] [address] Dr. Suraj Choe Lymphocytes/100 WBC (Bld) 42.8 % Normal 20.5-60.0 [facility] Comment on above: Performed By: #### C BC #### [facility] [address] [place] [address] Dr. Suraj Choe MANUAL DIFF REQ NO Normal [facility] Comment on above: Performed By: #### C BC #### [facility] [address] [address] [address] Suraj Choe MCH (RBC) [Entitic mass] 27.9 pg Normal 26.7-34.0 [facility] Comment on above: Performed By: #### C BC #### [facility] [address] [address] [address] Suraj Choe MCHC (RBC) [Mass/Vol] 31.4 g/dL Normal 29.9-35.2 [facility] Comment on above: Performed By: #### C BC #### [facility] [address] [place] [address] Dr. Suraj Choe MCV (RBC) [Entitic vol] 88.8 fL Normal 81.0-99.0 [facility] Comment on above: Performed By: #### C BC #### [facility] [address] [place] [address] Dr. Suraj Choe MONO # 0.3 103/ul Normal 0.3-0.8 [facility] Comment on above: Performed By: #### C BC #### [facility] [address] [place] [address] Dr. Suraj Choe Monocytes/100 WBC (Bld) 7.1 % Normal 1.7-12.0 [facility] Comment on above: Performed By: #### C BC #### [facility] [address] [place] [address] Dr. Suraj Choe NEUT # 2.2 103/ul Normal 1.4-6.5 [facility] Comment on above: Performed By: #### C BC #### [facility] [address] [place] [address] Dr. Suraj Choe Neutrophils/100 WBC (Bld) 47.7 % Normal 43.0-75.0 [facility] Comment on above: Performed By: #### C BC #### [facility] [address] [place] [address] Dr. Suraj Choe Platelet mean volume (Bld) [Entitic vol] 9.4 fL Critically low 9.5-13.5 [facility] Comment on above: Performed By: #### C BC #### [facility] [address] [address] [address] Suraj Choe PLT 279 103/ul Normal 150-450 [facility] Comment on above: Performed By: #### C BC #### [facility] [address] [address] [address] Suraj Choe RBC 4.56 106/ul Normal 4.20-5.40 [facility] Comment on above: Performed By: #### C BC #### [facility] [address] [address] [address] Suraj Choe WBC 4.5 103/ul Normal 4.0-11.0 [facility] Comment on above: Performed By: #### C BC #### [facility] [address] [address] [address] Suraj Choe PROF CHEM 8 (BAS METB)on Anion gap [Moles/Vol] 10.2 mmol/L Normal [facility] Comment on above: Performed By: #### B MP ####[facility] [address] [address]DrGemma Choe Calcium [Mass/Vol] 9.3 mg/dL Normal 8.5-10.1 [facility] Comment on above: Performed By: #### B MP ####[facility] [address] [address]DrGemma Choe Chloride [Moles/Vol] 106 mmol/L Normal 98-107 [facility] Comment on above: Performed By: #### B MP ####[facility] [facility] [id number] [place] [address]DrGemma Choe CO2 [Moles/Vol] 28.7 mmol/L Normal 21.0-32.0 [facility] Comment on above: Performed By: #### B MP ####[facility] [address] [place] [address]DrGemma Choe Creatinine [Mass/Vol] 0.76 mg/dL Normal 0.55-1.02 [facility] Comment on above: Performed By: #### B MP ####[facility] [address] [place] [address]Dr. Suraj Choe EGFR-AF NIGERIAN >60 Normal >=60 [facility] Comment on above: Performed By: #### B MP ####[facility] [address] [place] [id number]. Suraj Choe EGFR-NON AF NIGERIAN >60 Normal >=60 [facility] Comment on above: Performed By: #### B MP ####[facility] [address] [place] [id number]. Rachelshy Choe Glucose [Mass/Vol] 98 mg/dL Normal 74-106 [facility] Comment on above: Performed By: #### B MP ####[facility] [address] [place], [place] [address]Dr. Suraj Choe Potassium [Moles/Vol] 3.9 mmol/L Normal 3.5-5.1 [facility] Comment on above: Performed By: #### B MP ####[facility] [address] [place], [place] [address]Dr. Rachelshy Дмитрий Sodium [Moles/Vol] 141 mmol/L Normal 136-145 [facility] Comment on above: Performed By: #### B MP ####[facility] [address] [place] [address]Dr. Rachelshy Дмитрий Urea nitrogen [Mass/Vol] 22.0 mg/dL Critically high 7.0-18.0 [facility] Comment on above: Performed By: #### B MP ####[facility] [address] [place] [address]Dr. Suraj Choe Urea nitrogen/Creatinine [Mass ratio] 28.9 mg/mg Normal [facility] Comment on above: Performed By: #### B MP ####[facility] [address] [place], [place] [address]Dr. Suraj Дмитрий XR KUB 1 VIEWon 08-22-2021 [...] by: PINKY GARCIA Date: 2021-08-22 16:41 Normal [facility] Encounters Encounter Date Encounter Type Care Provider [...] Facility: Payers Date Payer Category Payer Medicare [id number] 1960 Medicare [id number] 1945 Unknown [id number] 2.16.84 [id number] 1945 Unknown [id number] 2.16.84 [id number] 1945 Unknown [id number] 2.16.84 [id number] 1945 Unknown [id number] 2.16.84 [id number] 1945 Unknown [id number] 2.16.84 [id number] Summary Purpose Family History No Family History Records Found Advance Directives No Advanced Directives Records Found Additional Source Comments INFORMATION SOURCE (unrecogn ized section and content) DATE CREATED AUTHOR 06/20/2022 [facility] FOR RECORDS PERTAINING TO PATIENTS WHO ARE [...] BE BASED ON THE PRIMARY CLINICAL RECORDS. [employer] [facility]. provides no warranty or guarantee of the accuracy or completeness of information in this document.
--- NOTE | 2023-02-24 12:14 | PM.STRESS ---
Stress Test Stress Test Allergies Allergy/AdvReac Type Severity Reaction Status Date / Time No Known Drug Allergies Allergy Verified 01/13/23 11:17 Requesting physician: YOSHI LUONG Procedure: Exercise Cardiolite stress test General Information: Reason for Stress Test: Chest pain Cardiac History and Risk Factors: No personal history of cardiovascular disease. Sister has pacemaker and stents . Resting 12 - Lead Electrocardiogram: Rate & rhythm: Sinus at a rate of 62. [place]: Left deviation T-waves: Flattened/minimally inverted in aVL ST-segments: Normal orientation Right bundle branch block Essentially unchanged from prior EKG 01/13/2023 Stress Test: Protocol: Mookie protocol was followed, with injection of Cardiolite once target heart rate was achieved. Exercise capacity: Fair exercise capacity. Total exercise time of 4 minutes 52 seconds reached Mookie stage 2 at 2MPH, 10% grade, & 5.2 METs. Blood pressure: Initial: 152/90, Maximum: 208/92, Recovery: 154/86 Rate & rhythm: Patient remained in sinus rhythm during the exercise and recovery portions of the study.? The maximum heart rate was 140, which was 99% of the maximum predicted heart rate 142. This was a visual estimation as there was significant artifact at peak exercise (computer read it as 200 which is incorrect). ST-segments & T-waves: There were no T-wave changes and no ST-segment changes when compared to the baseline EKG. Patient response/symptoms: There were no symptoms similar to the chief complaint. Interpretation: Normal exercise stress test without electrocardiographical evidence of ischemia. No reproducible symptoms. Cardiolite imaging interpretation will be reported separately. Clinical correlation required.?
== END 2023-02-24 08:25 | disposition home or self-care (01) ==
LOC: NM 08:24
PROVIDERS: PCP Family Medicine; Visit Provider Nurse Practitioner Family
DX: Z12.31 Encounter for screening mammogram for malignant neoplasm of breast (principal); R07.9 Chest pain, unspecified
CPT/HCPCS: 77063; 77067; 78452; 93017; A9500

== ENCOUNTER 2023-07-16 14:13 | Emergency (ER) | payer MEDICARE, SELFPAY ==
--- NOTE | 2023-07-16 14:16 | ED.GENADUL1 ---
HPI HPI - General Adult General Chief complaint: Headache Stated complaint: HEADACHE Time Seen by Provider: 07/16/23 14:15 History of Present Illness HPI narrative: Patient is a 78-year-old female presents to the ER with concerns of posterior headache. She currently rates pain 09/24, states it has been coming and going for the past month or 2. Patient denies any radiation, reports positive nausea. No vomiting. She is on eyedrops but denies any acute visual disturbance with symptoms. Patient denies having headaches previously. She describes it as a throbbing aching sensation posterior scalp. She denies any neck pain. Patient notes symptoms can be gone at times for a few hours but typically return. Patient was driven to the ER by her .She denies any blood thinner use. Location: Reports head Radiation: Reports non-radiation Pain Consistency: Reports intermittent Treatments prior to arrival: Reports other (tylenol with no relief) Related Data Home Medications ?Medication ?Instructions ?Recorded ?Confirmed amoxicillin 875 mg tablet 875 mg PO Q12H 01/13/23 01/13/23 omeprazole 40 mg capsule,delayed 40 mg PO DAILY 01/13/23 01/13/23 release simvastatin 20 mg tablet 20 mg PO Q24H 01/13/23 01/13/23 Previous Rx's ?Medication ?Instructions ?Recorded meloxicam 7.5 mg tablet 7.5 mg PO DAILY PRN arthritis #14 01/14/23 tabs ondansetron HCl 4 mg tablet 4 mg PO Q6H PRN nausea and 07/16/23 vomiting #12 tabs Allergies Allergy/AdvReac Type Severity Reaction Status Date / Time No Known Drug Allergies Allergy Verified 01/13/23 11:17 Opioid HPI Opioid Management Most Recent Opioid Data: Last Pain Scale 8 07/16/23 14:55 Last MAR Pain Assessment 07/16/23 14:52 Review of Systems ROS Constitutional Denies: fever, chills, change in weight or fatigue Eyes Reports: dry eyes; Denies: change in vision or blurry vision Ears, nose, mouth, and throat Denies: throat pain, neck pain or throat swelling Cardiovascular Denies: chest pain, palpitations or edema Respiratory Denies: shortness of breath, cough or wheezing Gastrointestinal Reports: nausea; Denies: abdominal pain, vomiting or coffee grounds in vomit Genitourinary Denies: painful urination Musculoskeletal Denies: back pain or neck pain Integumentary/Breast Denies: rash, itching or redness Neurological Reports: headache; Denies: numbness in extremities, weakness in extremities, lack of coordination, dizziness or vertigo Psychiatric Denies: anxiety PFSH [facility] Medical History (Updated 07/16/23 @ 15:51 by ADRIANNA Torres) GERD (gastroesophageal reflux disease) ?K21.9 - Gastro-esophageal reflux disease without esophagitis (ICD-10) High cholesterol ?E78.00 - Pure hypercholesterolemia, unspecified (ICD-10) Chest pain ?R07.9 - Chest pain, unspecified (ICD-10) Surgical History (Updated 01/13/23 @ 15:37 by Suzie Sandhu) H/O: hysterectomy ?Z90.710 - Acquired absence of both cervix and uterus (ICD-10) Family History (Updated 01/13/23 @ 15:40 by Suzie Sandhu) Father Family history of myocardial infarction Mother Family history of stroke Social History (Updated 01/13/23 @ 15:41 by Suzie Sandhu) Within the past year, how often did you have a drink containing alcohol: never Score interpretation: A score less than 3 is consistent with normal alcohol consumption. Smoking status: Never smoker Non-prescribed substance use: denies use Previous occupational history: retired Highest level of school completed/degree received: 11th grade Are you now , , , , never or living with a partner: Little interest or pleasure in doing things: not at all Feeling down, depressed, or hopeless: not at all Feel stressed/tense/nervous/anxious/difficulty sleeping: only a little Due to disability, difficulty making decisions: No Do you think of yourself as: straight/heterosexual Exam Narrative Exam Narrative: Vital signs and nurses notes reviewed. The patient is not hypoxic. General: The patient appears well and in no apparent distress. Patient is resting comfortably on cart. Skin: Warm, dry, no pallor noted. The patient has no evidence of rash, petechiae, or purpura noted. Head: Normocephalic, atraumatic, no temporal arterial tenderness Neck: Supple, trachea mid-line, no tenderness, no lymphadenopathy. No meningeal signs. No nuchal rigidity. Eye: Pupils are equal, round and reactive to light, EOMI Ears, Nose, Mouth, and Throat: Oral mucosa is moist, TMs Obscured with moderate cerumen.no hemotympanum noted. Cardiovascular: Regular Rate and Rhythm Respiratory: Patient is in no distress, no accessory muscle use, lungs are clear to auscultation, no wheezing, rales or rhonchi Back: non-tender, no CVA tenderness Musculoskeletal: normal ROM, no tenderness, no swelling, normal strength 5/5. Normal pulses to radial 2+ bilaterally . GI: Normal bowel sounds, no tenderness to palpation, no masses appreciated. No rebound, guarding, or rigidity noted. Neurological: A&O x4, normal equal quality supervisor strength, The patient is not ataxic. The patient has normal speech. The patient has normal coordination. . Normal motor and sensory observed. Psychiatric: Cooperative Constitutional Vital Signs, click to edit/add: Last Vital Signs Temp 98.2 F 07/16/23 14:17 Pulse 55 L 07/16/23 14:59 Resp 18 07/16/23 14:59 BP 149/87 H 07/16/23 14:59 Pulse Ox 100 07/16/23 14:59 O2 Del Method Room Air 07/16/23 14:17 Course Vital Signs Vital signs: Vital Signs Temperature 98.2 F 07/16/23 14:17 Pulse Rate 82 07/16/23 14:17 Respiratory Rate 20 07/16/23 14:17 Blood Pressure 158/72 H 07/16/23 14:17 Pulse Oximetry 100 07/16/23 14:17 Oxygen Delivery Method Room Air 07/16/23 14:17 Temperature 98.2 F 07/16/23 14:17 Pulse Rate 55 L 07/16/23 14:59 Respiratory Rate 18 07/16/23 14:59 Blood Pressure 149/87 H 07/16/23 14:59 Pulse Oximetry 100 07/16/23 14:59 Oxygen Delivery Method Room Air 07/16/23 14:17 Medical Decision Making MDM Narrative Medical decision making narrative: Patient presents with chief concern of recurrent headache for the past 2 months, currently 8. Patient states she has discussed this with her family doctor but has not begun any treatment options. During the start of her IV for fluids and medication patient complained of abdominal cramping reports last bowel movement yesterday, denies diarrhea. She was given Levsin. Patient reevaluated, she reports feeling much better, IV fluid still running, she reports headache down to a 4/10 with IV Toradol. We discussed close follow-up to her PCP, given the location of her headache she may need neurology consult eval and tx possible injections for occipital neuralgia. Patient agreeable to discharge home declines the need for any further medication. Recommend p.o. fluids. The patient is to followup with primary care physician in next 2-3 days or to return to the emergency department should any of the signs or symptoms worsen or new symptoms develop. Patient had questions answered. The patient agrees with the following Diagnosis and Treatment plan and the patient will be discharged home. Medical Records Medical records reviewed: Yes I reviewed the patient's medical records Lab Data Lab results reviewed: Yes I reviewed the patient's lab results Labs: Lab Results 07/16/23 07/16/23 Range/Units 14:50 14:58 WBC 5.2 (4.0-11.0) 10^3/uL RBC 4.39 (4.20-5.40) 10^6/uL Hgb 12.2 (12.0-16.0) g/dL Hct 39.7 (36.0-48.0) % MCV 90.4 (81.0-99.0) fL MCH 27.8 (26.7-34.0) pg MCHC 30.7 (29.9-35.2) g/dL RDW 13.8 (11.0-15.0) % Plt Count 391 (150-450) 10^3/uL MPV 9.3 L (9.5-13.5) fL Neut % (Auto) 42.5 L (43.0-75.0) % Lymph % (Auto) 49.7 (20.5-60.0) % [place] % (Auto) 5.6 (1.7-12.0) % Eos % (Auto) 1.2 (0.9-7.0) % Baso % (Auto) 0.6 (0.2-2.0) % Neut # (Auto) 2.2 (1.4-6.5) 10^3/uL Lymph # (Auto) 2.6 (1.2-3.8) 10^3/uL [place] # (Auto) 0.3 (0.3-0.8) 10^3/uL Eos # (Auto) 0.1 (0.0-0.7) 10^3/uL Baso # (Auto) 0.0 (0.0-0.1) 10^3/uL Abs Immat Gran (auto) 0.02 (0.00-0.03) 10^3/uL Imm/Tot Granulo (auto) 0.4 (0.0-0.5) % Sodium 142 (136-145) mmol/L Potassium 3.6 (3.5-5.1) mmol/L Chloride 105 (98-107) mmol/L Carbon Dioxide 30.9 (21.0-32.0) mmol/L Anion Gap 9.7 BUN 21.0 H (7.0-18.0) mg/dL Creatinine 0.76 (0.55-1.02) mg/dL Est GFR ( Amer) >60 (>=60) Est GFR (Non-Af Amer) >60 (>=60) BUN/Creatinine Ratio 27.6 Glucose 90 (74-106) mg/dL Calcium 9.6 (8.5-10.1) mg/dL Total Bilirubin 0.6 (0.2-1.0) mg/dL Direct Bilirubin 0.1 (0.0-0.2) mg/dL AST 18 (15-37) U/L ALT 21 (14-59) U/L Alkaline Phosphatase 91 (46-116) U/L Total Protein 8.0 (6.4-8.2) g/dL Albumin 3.9 (3.4-5.0) g/dL Globulin 4.1 g/dL Albumin/Globulin Ratio 1.0 Lipase 42.0 (16.0-77.0) U/L Urine Color Lt. yellow (YELLOW) Urine Clarity Clear (CLEAR) Urine pH 6.0 (5.0-9.0) Ur Specific [place] 1.020 (1.005-1.025) Urine Protein Negative (NEG/TRACE) mg/dL Urine Glucose (UA) Negative (NEGATIVE) mg/dL Urine Ketones Negative (NEGATIVE) mg/dL Urine Occult Blood Small A (NEGATIVE) Urine Nitrite Negative (NEGATIVE) Urine Bilirubin Negative (NEGATIVE) Urine Urobilinogen 0.2 (0.2-1.0) EU/dL Ur Leukocyte Esterase Negative (NEGATIVE) Urine RBC 0-2 (0-2) #/HPF Urine WBC None seen (NONE SEEN) #/HPF Ur Squamous Epith Cells Few A (NONE/RARE) #/LPF Urine Crystals None seen (None Seen) #/HPF Urine Bacteria None seen (NONE SEEN) #/HPF Urine Casts None seen (NONE SEEN) #/LPF Urine Mucus None seen (NONE SEEN) Ur Culture Indicated? No Imaging Data CT scan - head: Radiologist's impression: ITS Impressions Head CT 07/16/23 14:26 IMPRESSION: No CT evidence of acute intracranial abnormality. Empty sella. Electronically authenticated by: ZAFAR BLANCHARD Date: 07/16/2023 15:36 Discharge Plan Discharge Stand Alone Forms: Portal Instructions Chief Complaint: Headache Clinical Impression: Headache Patient Disposition: Home, Self-Care Time of Disposition Decision: 15:51 Condition: Good Prescriptions / Home Meds: New ondansetron HCl 4 mg tablet 4 mg PO Q6H PRN (Reason: nausea and vomiting) Qty: 12 0RF No Action amoxicillin 875 mg tablet 875 mg PO Q12H Patient Comments: 01/05/23 FOR 10 DAYS simvastatin 20 mg tablet 20 mg PO Q24H omeprazole 40 mg capsule,delayed release(DR/EC) 40 mg PO DAILY meloxicam 7.5 mg tablet 7.5 mg PO DAILY PRN (Reason: arthritis) Qty: 14 1RF Print Language: Chinese Instructions: Acute Headache (ED) Referrals: Cristian Hung MD [Primary Care Provider] - 1 week
[2023-07-16 14:17] VITALS: BP 158/72; PULSE 82; TEMP 36.8; O2SAT 100; BMI 25.0
--- NOTE | 2023-07-16 14:26 | CT_ITS ---
The [address] [address] Patient Name: MATIAS MORTON MRN: [id number] date: 1945 Sex: F Assigned Patient Location: ER Current Patient Location: ER Accession/Order Number: [id number] Exam Date: 07/16/2023 15:09 Report Date: 07/16/2023 15:36 At the request of: SARITA MAJOR Procedure: CT head/brain wo con EXAM: CT head/brain wo con HISTORY: posterior headache COMPARISON: CT brain 01/31/2022, 06/08/2015 TECHNIQUE: Axial CT scans through the head were obtained without IV contrast administration. Dose reduction techniques were achieved by using: automated exposure control and/or adjustment of mA and /or kV according to patient size and/or use of iterative reconstruction technique. FINDINGS: There is no evidence of acute intracranial hemorrhage or abnormal extra-axial fluid collection. No mass effect or midline shift is seen. There is no evidence of large acute territorial infarction. There is no hydrocephalus. The cortical sulci and ventricles are within normal limits To the limit of CT, the posterior fossa appears unremarkable. .The pituitary fossa is markedly enlarged and filled with CSF, consistent with empty sella, stable since 2016. No definite acute fracture is identified. Soft tissues are unremarkable. The visualized orbits show no abnormality. The visualized paranasal sinuses show no air-fluid level. Mastoid air cells are clear. CT/CT head/brain wo con IMPRESSION: No CT evidence of acute intracranial abnormality. Empty sella. Electronically authenticated by: ZAFAR BLANCHARD Date: 07/16/2023 15:36
[2023-07-16] MEDS: HYOSCYAMINE SULFATE 0.125 MG TAB.SUBL SL (14:52)
[2023-07-16] MEDS: ONDANSETRON 4 MG RAPDIS TABLET SL (14:52)
[2023-07-16] MEDS: 0.9 % SODIUM CHLORIDE 1,000 ML 999 ML IV (14:52)
[2023-07-16] MEDS: KETOROLAC TROMETHAMINE 30 MG/ML VIAL IVP (14:52)
[2023-07-16 14:59] VITALS: BP 149/87; PULSE 55; O2SAT 100
[2023-07-16 15:10] LABS: Basophils Percent Auto 0.6 % (0.2-2.0); Eosinophils Absolute Auto 0.1 10^3/uL (0.0-0.7); Eosinophils Percent Auto 1.2 % (0.9-7.0); Hematocrit 39.7 % (36.0-48.0); Hemoglobin 12.2 g/dL (12.0-16.0); Immature Granulocytes Abs Auto 0.02 10^3/uL (0.00-0.03); Immature Granulocytes Pct Auto 0.4 % (0.0-0.5); Lymphocytes Absolute Auto 2.6 10^3/uL (1.2-3.8); Lymphocytes Percent Auto 49.7 % (20.5-60.0); Mean Corpuscular HGB Conc 30.7 g/dL (29.9-35.2); Mean Corpuscular Hemoglobin 27.8 pg (26.7-34.0); Mean Corpuscular Volume 90.4 fL (81.0-99.0); Mean Platelet Volume 9.3 fL (9.5-13.5); Monocytes Absolute Auto 0.3 10^3/uL (0.3-0.8); Monocytes Percent Auto 5.6 % (1.7-12.0); Neutrophils Absolute Auto 2.2 10^3/uL (1.4-6.5); Neutrophils Percent Auto 42.5 % (43.0-75.0); Platelet Count 391 10^3/uL (150-450); Red Blood Count 4.39 10^6/uL (4.20-5.40); Red Cell Distribution Width 13.8 % (11.0-15.0); White Blood Count 5.2 10^3/uL (4.0-11.0)
[2023-07-16 15:10] LABS: Bilirubin Urine NEGATIVE (NEGATIVE); Blood Urine SMALL (NEGATIVE); Clarity Urine CLEAR (CLEAR); Color Urine LT. YELLOW (YELLOW); Glucose Urine UA NEGATIVE (NEGATIVE); Ketones Urine NEGATIVE (NEGATIVE); Leukocyte Esterase Urine NEGATIVE (NEGATIVE); Nitrite Urine NEGATIVE (NEGATIVE); Protein Urine NEGATIVE (NEG/TRACE); Urobilinogen Urine 0.2 EU/dL (0.2-1.0)
[2023-07-16 15:13] LABS: Urine Microscopic Indicated YES
[2023-07-16 15:23] LABS: Anion Gap 9.7; BUN Creatinine Ratio 27.6; Calcium 9.6 mg/dL (8.5-10.1); Carbon Dioxide 30.9 mmol/L (21.0-32.0); Chloride 105 mmol/L (98-107); Estimated GFR (African America >60 (>=60); Estimated GFR (Non-African Ame >60 (>=60); Glucose 90 mg/dL (74-106); Potassium 3.6 mmol/L (3.5-5.1); Sodium 142 mmol/L (136-145)
[2023-07-16 15:28] LABS: Alanine Aminotransferase 21 U/L (14-59); Albumin Level 3.9 g/dL (3.4-5.0); Alkaline Phosphatase 91 U/L (46-116); Aspartate Amino Transferase 18 U/L (15-37); Bilirubin Direct 0.1 mg/dL (0.0-0.2); Bilirubin Total 0.6 mg/dL (0.2-1.0); Globulin 4.1 g/dL
[2023-07-16 15:31] LABS: Bacteria Urine NONE SEEN #/HPF (NONE SEEN); Cast Seen? NONE SEEN #/LPF (NONE SEEN); Crystals Seen? None Seen #/HPF (None Seen); Mucus Urine NONE SEEN (NONE SEEN); RBC Urine 0-2 #/HPF (0-2); Squamous Epithelial Cell Urine FEW #/LPF (NONE/RARE); Urine Culture Indicated NO; WBC Urine NONE SEEN #/HPF (NONE SEEN)
[2023-07-16 16:00] VITALS: BP 121/65; PULSE 60; TEMP 36.8; O2SAT 99
--- NOTE | 2023-07-17 14:36 | PC.NURSE ---
07/17/23 pt called er states given zofran from 07/16/23 visit, was not vomiting and is not nauseous needed something for headache. pt states same headache, asked to speak with Alee RODAS upon arrival to see if something could be ordered, pt educated if s/sx continues or worsening to return to er. pt v/u. upon arrival spoke to Eder RODAS about pt suggested Tylenol 3 times a day as needed for headache and if worse or continues to return to er. called pt and updated on this. pt v/u and hung up on handbook writer. Ileana Freire RN
== END 2023-07-16 16:30 | disposition home or self-care (01) ==
PROVIDERS: Personal Emergency Response Attendant; Emergency Provider Emergency Medicine Emergency Medical Services; PCP Family Medicine
DX: R51.9 Headache, unspecified (principal)
CPT/HCPCS: 36415; 70450; 80048; 80076; 81001; 83690; 85025; 96374; 99285

== ENCOUNTER 2023-07-19 12:40 | Emergency (ER) | payer MEDICARE, SELFPAY ==
[2023-07-19 12:45] VITALS: BP 140/79; PULSE 76; TEMP 37.2; O2SAT 99; BMI 26.6
--- NOTE | 2023-07-19 13:13 | ED.NEUROSD1 ---
HPI - Neuro Symptoms/Deficit General Chief Complaint: Headache Stated Complaint: HEADACHE Time Seen by Provider: 07/19/23 13:00 Source: patient Mode of arrival: walk-in Limitations: no limitations History of Present Illness HPI Narrative: 78-year-old female presents to the emergency department with 2-week history of headache. Mainly located to the top right of her head. Describes it as a pressure. Symptoms have been waxing and waning. Has had another ER visit for the same, as well as, visit to her primary care provider. Despite this, symptoms have persisted. Denies photophobia, acute visual changes, nausea, vomiting, focal weakness, chest pain, shortness of breath, eye pain. Quality:?Pressure Severity:?Moderate Timing:?As above Context: Normal setting and activity? Modifying factors:?Not better despite Zofran treatment at home Associated symptoms: As above Related Data Home Medications ?Medication ?Instructions ?Recorded ?Confirmed omeprazole 40 mg capsule,delayed 40 mg PO DAILY 01/13/23 07/19/23 release simvastatin 20 mg tablet 20 mg PO Q24H 01/13/23 07/19/23 dicyclomine 10 mg capsule mg 07/19/23 simvastatin 40 mg tablet 40 mg PO DAILY 07/19/23 07/19/23 Previous Rx's ?Medication ?Instructions ?Recorded meloxicam 7.5 mg tablet 7.5 mg PO DAILY PRN arthritis #14 01/14/23 tabs ondansetron HCl 4 mg tablet 4 mg PO Q6H PRN nausea and 07/16/23 vomiting #12 tabs prochlorperazine maleate 10 mg 10 mg PO BID PRN headache #10 tabs 07/19/23 tablet (Compazine) Allergies Allergy/AdvReac Type Severity Reaction Status Date / Time No Known Drug Allergies Allergy Verified 01/13/23 11:17 Review of Systems ROS Narrative CONST: Denies fever, chills HENT: Denies congestion, sore throat EYES: Denies eye redness, visual disturbance RESP: Denies cough, shortness of breath CV: Denies chest pain, palpitations GI: Denies abd pain, nausea, vomiting : Denies dysuria, flank pain MS: Denies back pain, myalgias SKIN: Denies color change, rash NEURO: + Headache. Denies dizziness, facial asymmetry, light-headedness, numbness, seizures, syncope, tremors, weakness PSYCHIATRIC: Denies confusion, agitation PFSH [facility] Medical History (Updated 07/19/23 @ 14:47 by ADRIANNA Correia) GERD (gastroesophageal reflux disease) ?K21.9 - Gastro-esophageal reflux disease without esophagitis (ICD-10) High cholesterol ?E78.00 - Pure hypercholesterolemia, unspecified (ICD-10) Chest pain ?R07.9 - Chest pain, unspecified (ICD-10) Surgical History (Updated 01/13/23 @ 15:37 by Suzie Sandhu) H/O: hysterectomy ?Z90.710 - Acquired absence of both cervix and uterus (ICD-10) Family History (Updated 01/13/23 @ 15:40 by Suzie Sandhu) Father Family history of myocardial infarction Mother Family history of stroke Social History (Updated 01/13/23 @ 15:41 by Suzie Sandhu) Within the past year, how often did you have a drink containing alcohol: never Score interpretation: A score less than 3 is consistent with normal alcohol consumption. Smoking status: Never smoker Non-prescribed substance use: denies use Previous occupational history: retired Highest level of school completed/degree received: 11th grade Are you now , , , , never or living with a partner: Little interest or pleasure in doing things: not at all Feeling down, depressed, or hopeless: not at all Feel stressed/tense/nervous/anxious/difficulty sleeping: only a little Due to disability, difficulty making decisions: No Do you think of yourself as: straight/heterosexual Exam Narrative Exam Narrative: Vital signs reviewed Nurses notes noted CONST: Nontoxic, well appearing, well nourished, in no distress.? No diaphoresis.?? HENT: normocephalic, atraumatic, moist mucous membrane, no abnormalities of the nose noted, hearing normal, no facial droop EYES: PERRL, EOMI.? normal appearing conjunctiva, no apparent discharge bilat NECK: normal appearance CV: normal rate, regular rhythm, no murmur RESP: normal effort, speaking in complete sentences. Lung sounds clear and equal bilat.? No wheezes, rales, rhonchi GI: normal bowel sounds, soft, nontender, no distension : no CVA tenderness MS: no edema, injury SKIN: no pallor NEURO: A&Ox 3, GCS = 15, no sensory, motor deficits.? CN normal as tested. NIH = 0.? 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 Normal speech.? Memory intact Constitutional Vital Signs, click to edit/add: Last Vital Signs Temp 98.9 F 07/19/23 12:45 Pulse 76 07/19/23 12:45 Resp 20 07/19/23 12:45 BP 140/79 07/19/23 12:45 Pulse Ox 99 07/19/23 12:45 Course Reevaluation(s) Reevaluation #1: Reports improvement of her headache. Waiting for remainder of diagnostic workup Time: 14:30 Reevaluation #2: Headache resolved. Discussed with patient results, plan, and disposition. She is agreeable. Time: 14:46 Vital Signs Vital signs: Vital Signs Temperature 98.9 F 07/19/23 12:45 Pulse Rate 76 07/19/23 12:45 Respiratory Rate 20 07/19/23 12:45 Blood Pressure 140/79 07/19/23 12:45 Pulse Oximetry 99 07/19/23 12:45 Temperature 98.9 F 07/19/23 12:45 Pulse Rate 76 07/19/23 12:45 Respiratory Rate 20 07/19/23 12:45 Blood Pressure 140/79 07/19/23 12:45 Pulse Oximetry 99 07/19/23 12:45 MDM - Neuro Symptoms/Deficit MDM Narrative Medical decision making narrative: This is a pleasant 78-year-old female who presents with a 2-week history of headache. Located to the top of her head, favoring the right side. Symptoms have waxed and waned. Was evaluated for this headache on the here, as well as, was evaluated by her primary care provider. Reports no other symptoms besides a headache. Denies any photophobia, visual changes, nausea, vomiting, focal weakness. On arrival, afebrile, vital signs are stable. Exam, nontoxic, well-appearing patient in no distress. No focal neurologic deficits. Cranial nerves II through XII grossly intact. Heart regular rate and rhythm. Lung sounds clear and equal bilaterally. Patient is ambulatory. Labs reveal no leukocytosis, worsening anemia, thrombocytopenia, electrolyte imbalance, renal impairment. C-reactive protein was less than 0.50. Reviewed patient's CAT scan from the which, per radiology report reveals no acute findings. Considered repeating the CT scan. However, without objective neurologic deficits, did not feel this was warranted. She also gained complete relief of her headache with treatment during ED course. She had received Toradol, Compazine, and Benadryl. Favor nonspecific cephalgia ICH less likely based on history and physical exam, negative CT scan from 3 days ago, no neurologic deficits. Patient also gained relief of her headache with treatment in the emergency department Temporal arteritis less likely based on history and physical, now no tenderness over the temporal region, CRP less than 0.50 Disposition ? The patient was discharged. Plan: Patient will be discharged to home. Condition at time of disposition: stable She was given prescription for Compazine Advised to follow up with referral provider. Name and number placed on discharge paperwork. Advised to return for any worsening and/or development of new, concerning signs or symptoms PLEASE NOTE: Portions of the medical record may have been produced using electronic septic tank setter and may contain errors with respect to translation of words which may not have been identified prior to finalization of the chart. Medical Records Attestation: I reviewed the patient's medical records. Lab Data Attestation: I reviewed the patient's lab results. Labs: Lab Results 07/19/23 Range/Units 13:30 WBC 3.7 L (4.0-11.0) 10^3/uL RBC 3.91 L (4.20-5.40) 10^6/uL Hgb 10.9 L (12.0-16.0) g/dL Hct 35.5 L (36.0-48.0) % MCV 90.8 (81.0-99.0) fL MCH 27.9 (26.7-34.0) pg MCHC 30.7 (29.9-35.2) g/dL RDW 13.8 (11.0-15.0) % Plt Count 314 (150-450) 10^3/uL MPV 9.6 (9.5-13.5) fL Neut % (Auto) 43.2 (43.0-75.0) % Lymph % (Auto) 47.3 (20.5-60.0) % Mobile % (Auto) 7.4 (1.7-12.0) % Eos % (Auto) 1.6 (0.9-7.0) % Baso % (Auto) 0.5 (0.2-2.0) % Neut # (Auto) 1.6 (1.4-6.5) 10^3/uL Lymph # (Auto) 1.7 (1.2-3.8) 10^3/uL Mobile # (Auto) 0.3 (0.3-0.8) 10^3/uL Eos # (Auto) 0.1 (0.0-0.7) 10^3/uL Baso # (Auto) 0.0 (0.0-0.1) 10^3/uL Abs Immat Gran (auto) 0.00 (0.00-0.03) 10^3/uL Imm/Tot Granulo (auto) 0.0 (0.0-0.5) % Sodium 144 (136-145) mmol/L Potassium 4.7 (3.5-5.1) mmol/L Chloride 107 (98-107) mmol/L Carbon Dioxide 28.6 (21.0-32.0) mmol/L Anion Gap 13.1 BUN 19.0 H (7.0-18.0) mg/dL Creatinine 0.66 (0.55-1.02) mg/dL Est GFR ( Amer) >60 (>=60) Est GFR (Non-Af Amer) >60 (>=60) BUN/Creatinine Ratio 28.8 Glucose 90 (74-106) mg/dL Calcium 9.1 (8.5-10.1) mg/dL C-Reactive Protein <0.50 (<=0.50) mg/dL Discharge Plan Discharge Stand Alone Forms: Portal Instructions Chief Complaint: Headache Clinical Impression: Cephalalgia Qualifiers: Headache type: unspecified Headache chronicity pattern: acute headache Intractability: not intractable Qualified Code(s): R51.9 - Headache, unspecified Patient Disposition: Home, Self-Care Time of Disposition Decision: 14:47 Condition: Good Mode of Transportation: Private Vehicle Prescriptions / Home Meds: New prochlorperazine maleate [Compazine] 10 mg tablet 10 mg PO BID PRN (Reason: headache) Qty: 10 0RF No Action simvastatin 40 mg tablet 40 mg PO DAILY dicyclomine 10 mg capsule simvastatin 20 mg tablet 20 mg PO Q24H omeprazole 40 mg capsule,delayed release(DR/EC) 40 mg PO DAILY meloxicam 7.5 mg tablet 7.5 mg PO DAILY PRN (Reason: arthritis) Qty: 14 1RF ondansetron HCl 4 mg tablet 4 mg PO Q6H PRN (Reason: nausea and vomiting) Qty: 12 0RF Print Language: Mexican Instructions: Acute Headache (ED) Referrals: m, [facility] [Other] - 1 week
[2023-07-19] MEDS: 0.9 % SODIUM CHLORIDE 500 ML IV (13:42)
[2023-07-19] MEDS: DIPHENHYDRAMINE HCL 50 MG/ML VIAL 25 MG IV (13:46)
[2023-07-19] MEDS: KETOROLAC TROMETHAMINE 30 MG/ML VIAL 15 MG IVP (13:47)
[2023-07-19] MEDS: PROCHLORPERAZINE 10 MG/2 ML VIAL IV (13:50)
[2023-07-19 13:54] LABS: Basophils Percent Auto 0.5 % (0.2-2.0); Eosinophils Absolute Auto 0.1 10^3/uL (0.0-0.7); Eosinophils Percent Auto 1.6 % (0.9-7.0); Hematocrit 35.5 % (36.0-48.0); Hemoglobin 10.9 g/dL (12.0-16.0); Lymphocytes Absolute Auto 1.7 10^3/uL (1.2-3.8); Lymphocytes Percent Auto 47.3 % (20.5-60.0); Mean Corpuscular HGB Conc 30.7 g/dL (29.9-35.2); Mean Corpuscular Hemoglobin 27.9 pg (26.7-34.0); Mean Corpuscular Volume 90.8 fL (81.0-99.0); Mean Platelet Volume 9.6 fL (9.5-13.5); Monocytes Absolute Auto 0.3 10^3/uL (0.3-0.8); Monocytes Percent Auto 7.4 % (1.7-12.0); Neutrophils Absolute Auto 1.6 10^3/uL (1.4-6.5); Neutrophils Percent Auto 43.2 % (43.0-75.0); Platelet Count 314 10^3/uL (150-450); Red Blood Count 3.91 10^6/uL (4.20-5.40); Red Cell Distribution Width 13.8 % (11.0-15.0); White Blood Count 3.7 10^3/uL (4.0-11.0)
[2023-07-19 14:10] LABS: Anion Gap 13.1; BUN Creatinine Ratio 28.8; C Reactive Protein <0.50 mg/dL (<=0.50); Calcium 9.1 mg/dL (8.5-10.1); Carbon Dioxide 28.6 mmol/L (21.0-32.0); Chloride 107 mmol/L (98-107); Estimated GFR (African America >60 (>=60); Estimated GFR (Non-African Ame >60 (>=60); Glucose 90 mg/dL (74-106); Potassium 4.7 mmol/L (3.5-5.1); Sodium 144 mmol/L (136-145)
[2023-07-19 15:05] VITALS: BP 135/7; PULSE 5; TEMP 36.8; O2SAT 100
== END 2023-07-19 15:09 | disposition home or self-care (01) ==
PROVIDERS: Physician Assistant; Emergency Provider Emergency Medicine Emergency Medical Services; PCP Family Medicine
DX: R51.9 Headache, unspecified (principal)
CPT/HCPCS: 36415; 80048; 85025; 86140; 96374; 96375; 99284

== ENCOUNTER 2023-12-21 17:43 | Emergency (ER) | payer MEDICARE, SELFPAY ==
[2023-12-21] VITALS (15 sets, daily range): BP systolic 172–195; BP diastolic 77–130; PULSE 51–72; TEMP 37.1; O2SAT 96–100; BMI 30.2
--- NOTE | 2023-12-21 17:47 | ECG_ITS ---
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
--- NOTE | 2023-12-21 17:47 | XR_ITS ---
The [address] [address] Patient Name: MATIAS MORTON MRN: [id number] date: 1945 Sex: F Assigned Patient Location: ER Current Patient Location: ED.MAIN Accession/Order Number: [id number] Exam Date: 12/21/2023 18:02 Report Date: 12/21/2023 20:04 At the request of: JOEY JOHN Procedure: XR chest 1V CHEST RADIOGRAPH: HISTORY: chest pain. COMPARISON: Chest 01/13/2023.. TECHNIQUE: AP radiograph of was performed of the chest. FINDINGS: SUPPORT APPARATUS/POST-SURGICAL CHANGES: None. CARDIOMEDIASTINAL SILHOUETTE: Upper limits of normal in size. 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 There is widening of the right paratracheal mediastinum, likely due to tortuous/ectatic great vessels and this is stable. AIRWAYS/LUNGS: Normal. PLEURAL SPACES: Possible small left pleural effusion. No definite right pleural effusion or pneumothorax. BONES AND SOFT TISSUES: No acute abnormality. XR/XR chest 1V IMPRESSION: 1. Possible small left pleural effusion. Consider follow-up PA and lateral chest radiographs. 2. Otherwise no acute cardiopulmonary process. 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 Electronically authenticated by: PINKY RUSSELL Date: 12/21/2023 20:04
--- OUTSIDE RECORDS SUMMARY | 2023-12-21 17:55 | XMS_ITS | CCD ---
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 Phone JOSÉ LUIS ., DR GIBSON Admitting Unavailable HOY ., DR GIBSON Attending Unavailable HOY ., DR GIBSON Primary Care Unavailable EDUARY ., DR GIBSON Consulting Unavailable MUARICE, DR SANIYA Theodore Consulting Unavailable JORGE ., DR XIONG Admitting Unavailable JORGE ., DR XIONG Attending Unavailable HOY ., DR GIBSON Primary Care Unavailable JORGE ., DR XIONG Consulting Unavailable ZIEBER, DR PINKY Osborn Consulting Unavailable HOY ., DR GIBSON Primary Care Unavailable SONALI [...] Osborn Consulting Unavailable JOSEF VELEZ Consulting Unavailable PAIGE ORDONEZ Primary Care Unavailable KIRBY FAJARDO Attending Unavailable Problems Active Problems Problem Classification Problem Date Documented Date Episodic/Chronic Disorders of lipid metabolism (1 source) Pure hypercholesterolemia, unspecified; Translations: [PURE HYPERCHOLESTEROLEMIA UNSPEC] Onset: 3 Chronic Essential hypertension (1 source) Essential (primary) hypertension; Translations: [ESSENTIAL PRIMARY HYPERTENSION] Onset: 3 Chronic Headache; including migraine (1 source) Headache Onset: 4 Episodic Headache; including migraine (1 source) Headache; including migraine; Translations: [HEADACHE UNSPECIFIED] Onset: 2 Other connective tissue disease (2 sources) Pain in lower limb Onset: 4 Episodic Other female genital disorders (4 sources) Other specified conditions associated with female genital organs and menstrual cycle; Translations: [OTH SPEC COND FE GEN ORG MENST CYCL] Onset: 3 Episodic Other liver diseases (1 source) Fatty (change of) liver, not elsewhere classified; Translations: [FATTY CHANGE LIVER NEC] Onset: 3 Chronic Residual codes; unclassified (1 source) Edema, unspecified; Translations: [Edema, unspecified] Onset: 4 Episodic Unclassified (1 source) CONTACT W/AND (SUSP) EXPOS COVID-19; Translations: [CONTACT W/AND (SUSP) EXPOS COVID-19] Onset: 2 Past or Other Problems Problem Classification Problem Date Documented Da te Episodic/Chronic Abdominal pain (7 sources) Lower abdominal pain, unspecified; Translations: [Unspecified abdominal pain] Onset: 01-31-2022 Episodic Nausea and vomiting (1 source) Nausea; Translations: [NAUSEA] Onset: 02-03-2022 Episodic Other aftercare (1 source) Other senior living (current) drug therapy; Translations: [OTH USP CURRENT DRUG THERAPY] Onset: 03-09-2022 Episodic Other [...] Name Value Interpretation Reference Range Facil ity CBC AND AUTO DIFFon 09-07-19 24 ABSOLUTE BASOPHIL 0.0 X10E9/L Normal 0.0-0.2 [facility] Comment on above: Performed By: #### C BCA, 82825-3, CMP, 12422-7 #### [facility] ([id number]) [address] [place] [address], [place] [address] ABSOLUTE NEUTROPHIL 1.9 X10E9/L Normal 1.5-6.6 [facility] Comment on above: Performed By: #### [place] SIMMONS, 86475-8, CMP, 61057-8 #### [facility] ([id number]) [address] [place] [address] 41077 Basophils/100 WBC (Bld) 0.8 % Normal [facility] Comment on above: Performed By: #### Denver SIMMONS, 75890-4, CMP, #### [facility] ([id number]) [address] [place] [address] 69295 Eosinophils (Bld) [#/Vol] 0.1 10*3/uL Normal 0.0-0.4 [facility] Comment on above: Performed By: #### Denver SIMMONS, 91780-8, CMP, #### [facility] ([id number]) [address] [place] [address] 11284 Eosinophils/100 WBC (Bld) 1.3 % Normal [facility] Comment on above: Performed By: #### Denver SIMMONS, 31777-2, CMP, #### [facility] ([id number]) [address] [place] [address] 99611 Erythrocyte distribution width (RBC) [Ratio] 14.2 % Normal 11.5-15.0 [facility] Comment on above: Performed By: #### [place] SIMMONS, 42601-8, CMP, #### [facility] ([id number]) [address] [place] [address] 40827 Hematocrit (Bld) [Volume fraction] 34.7 % Low 35-47 [facility] Comment on above: Performed By: #### Denver SIMMONS, 60826-8, CMP, #### [facility] ([id number]) [address] [place] [address] 75563 Hemoglobin (Bld) [Mass/Vol] 11.4 g/dL Low 11.7-15.5 [facility] Comment on above: Performed By: #### Denver SIMMONS, 68459-1, CMP, #### [facility] ([id number]) [address] [place] [address] 85925 Lymphocytes (Bld) [#/Vol] 1.7 10*3/uL Normal 1.0-3.5 [facility] Comment on above: Performed By: #### [place] SIMMONS, 10565-2, CMP, #### [facility] ([id number]) [address] [place] [address] 65742 Lymphocytes/100 WBC (Bld) 42.2 % Normal [facility] Comment on above: Performed By: #### Denver SIMMONS, 92409-3, CMP, #### [facility] ([id number]) [address] [place] [address] 03853 MCH (RBC) [Entitic mass] 28.4 pg Normal 27-34 [facility] Comment on above: Performed By: #### [place] SIMMONS, 44236-7, CMP, #### [facility] ([id number]) [address] [place] [address] 00977 MCHC (RBC) [Mass/Vol] 32.8 g/dL Normal 32-36 [facility] Comment on above: Performed By: #### [place] SIMMONS, 48534-4, CMP, 23780-0 #### [facility] ([id number]) [address] [place] [address] 69280 MCV (RBC) [Entitic vol] 86 fL Normal 80-100 [facility] Comment on above: Performed By: #### Denver SIMMONS, 38730-7, CMP, 49638-9 #### [facility] ([id number]) [address] [place] [address] 89546 Monocytes (Bld) [#/Vol] 0.3 10*3/uL Normal 0-0.9 [facility] Comment on above: Performed By: #### [place] SIMMONS, 19143-4, CMP, 11832-8 #### [facility] ([id number]) [address] [place] [address] 68778 Monocytes/100 WBC (Bld) 7.1 % Normal [facility] Comment on above: Performed By: #### [place] SIMMONS, 90883-8, CMP, 27980-5 #### [facility] ([id number]) [address] [place] [address] 44824 Neutrophils/100 WBC (Bld) 48.6 % Normal [facility] Comment on above: Performed By: #### [place] SIMMONS, 45607-8, CMP, 12839-1 #### [facility] ([id number]) [address] [place] [address] 16604 Platelet mean volume (Bld) [Entitic vol] 6.8 fL Low 7-12 [facility] Comment on above: Performed By: #### [place] SIMMONS, 68132-8, CMP, 34372-8 #### [facility] ([id number]) [address] [place] [address] 43777 Platelets (Bld) [#/Vol] 370 10*3/uL Normal 150-450 [facility] Comment on above: Performed By: #### [place] SIMMONS, 06980-1, CMP, 38700-5 #### [facility] ([id number]) [address] [place] [address] 48172 RBC COUNT 4.02 X10E12/L Normal 3.80-5.20 [facility] Comment on above: Performed By: #### [place] SIMMONS, 28804-7, CMP, 61559-1 #### [facility] ([id number]) [address] [place] [address] 12255 WBC (Bld) [#/Vol] 4.0 10*3/uL Normal 4.0-11.0 [facility] Comment on above: Performed By: #### C BCA, 15917-0, CMP, 59165-4 #### [facility] ([id number]) [address] [place] [address] 26974 COMPREHENSIVE METABOLIC PANE Dayo 09-07-2023 Albumin [Mass/Vol] 3.9 g/dL Normal 3.2-5.3 [facility] Comment on above: Performed By: #### C BCA, 71746-2, CMP, 27050-2 #### [facility] ([id number]) [address] [place] [address] 37625 ALP [Catalytic activity/Vol] 64 U/L Normal 39-130 [facility] Comment on above: Performed By: #### C BCA, 78735-7, CMP, 09308-0 #### [facility] ([id number]) [address] [place] [address] 69862 ALT [Catalytic activity/Vol] 14 U/L Normal 0-31 [facility] Comment on above: Performed By: #### C BCA, 71319-5, CMP, 47255-7 #### [facility] ([id number]) [address] [place] [address] 34975 Anion gap [Moles/Vol] 7 mmol/L Normal 5-15 [facility] Comment on above: Performed By: #### C BCA, 76699-6, CMP, 20362-5 #### [facility] ([id number]) [address] [place] [address] 76860 AST [Catalytic activity/Vol] 17 U/L Normal 0-41 [facility] Comment on above: Performed By: #### C BCA, 54360-0, CMP, 71238-3 #### [facility] ([id number]) [address] [place] [address] 08805 Bilirubin [Mass/Vol] 0.8 mg/dL Normal 0.3-1.2 [facility] Comment on above: Performed By: #### C BCA, 66691-5, CMP, 59479-7 #### [facility] ([id number]) [address] [place] [address] 96077 Calcium [Mass/Vol] 9.2 mg/dL Normal 8.5-10.5 [facility] Comment on above: Performed By: #### C BCA, 48209-2, CMP, 02070-5 #### [facility] ([id number]) [address] [place] [address] 35273 Chloride [Moles/Vol] 108 mmol/L Normal 98-109 [facility] Comment on above: Performed By: #### C BCA, 96204-6, CMP, 94765-7 #### [facility] ([id number]) [address] [place] [address] 99692 CO2 [Moles/Vol] 26 mmol/L Normal 22-32 [facility] Comment on above: Performed By: #### C BCA, 82862-0, CMP, 25493-7 #### [facility] ([id number]) [address] [place] [address] 47167 Creatinine [Mass/Vol] 0.78 mg/dL Normal 0.40-1.00 [facility] Comment on above: Result Comment: METH OD TRACEABLE TO IDMS STANDARD Performed By: #### C BCA, 48129-2, CMP, 01411-5 #### [facility] ([id number]) [address] [place] [address] 83561 GFR/1.73 sq M.predicted among non-blacks MDRD (S/P/Bld) [Vol rate/Area] 77 mL/min/{1.73_m2} Normal >59 [facility] Comment on above: Result Comment: Reported eGFR is based on the CKD-EPI 2021 equation that does not use a race coefficient. Performed By: #### C BCA, 53375-2, CMP, 82611-1 #### [facility] ([id number]) [address] [place] [address] 01234 Glucose [Mass/Vol] 109 mg/dL High 65-99 [facility] Comment on above: Performed By: #### C BCA, 18113-5, CMP, 99741-6 #### [facility] ([id number]) [address] [place] [address] 05569 Potassium [Moles/Vol] 4.0 mmol/L Normal 3.5-5.0 [facility] Comment on above: Performed By: #### C BCA, 67817-5, CMP, 24400-2 #### [facility] ([id number]) [address] [place] [address] 11526 Protein [Mass/Vol] 7.0 g/dL Normal 6.0-8.0 [facility] Comment on above: Performed By: #### C BCA, 94419-7, CMP, 20821-3 #### [facility] ([id number]) [address] [place] [address] 74344 Sodium [Moles/Vol] 141 mmol/L Normal 134-146 [facility] Comment on above: Performed By: #### C BCA, 93518-1, CMP, 67774-7 #### [facility] ([id number]) [address] [place] [address] 28835 Urea nitrogen [Mass/Vol] 16 mg/dL Normal 5-27 [facility] Comment on above: Performed By: #### C BCA, 19314-5, CMP, 17807-4 #### [facility] ([id number]) [address] [place] [address] 20056 MAGNESIUMon 09-07-2023 Magnesium [Mass/Vol] 2.2 mg/dL Normal 1.8-2.6 [facility] Comment on above: Performed By: #### C BCA, 32515-4, [facility], 72154-0 #### [facility] ([id number]) [address] [place] [address] 48212 Natriuretic peptide B [Mass/ Vol]on 09-07-2023 Natriuretic peptide B (Bld) [Mass/Vol] 15 pg/mL Normal <100.0 [facility] Comment on above: Performed By: #### C BCA, 47972-0, [facility], 81453-8 #### [facility] ([id number]) [address] [place] [address] 40359 US PELVIS TRANSVAGon 023 US PELVIS TRANSVAG [...] by: PINKY GARCIA Date: 2022-06-15 15:37 Normal [facility] MG MAMM SCREEN 3D PHYLLIS CADon 02-23-2022 MG MAMM SCREEN 3D PHYLLIS CAD Patient: MATIAS MORTON Exam Date: 02/23/2022 : 1945 Gender:F Ordering : DR PAIGE ORDONEZ . Admission #: [id number] Family : Order #: [id number] CLICK HERE TO VIEW EXAM RADIOLOGY REPORT [...] Treatments None Family Cancers None LOCATION: [facility] BREAST COMPOSITION: Scattered areas fibroglandular density. [...] MD on 02/24/2022 at 11:01 Normal [facility] CARDIAC ROLANDO ADMITon 022 CK [Catalytic activity/Vol] 87 U/L Normal 26-192 [facility] Comment on above: Performed By: #### C MADM LIPA, CMP #### [facility] [address] [place] [address] Dr. Suraj Choe CK.MB [Mass/Vol] 0.92 ng/mL Normal <=3.60 [facility] Comment on above: Performed By: #### C MADM LIPA, CMP #### [facility] [address] [place] [address] Dr. Suraj Choe HSTROP 7.5 pg/mL Normal 4.0-51.3 [facility] Comment on above: Result Comment: CUT- OFF POINTS HAVE BEEN ESTABLISHED BASED ON THE FOURTH UNIVERSAL DEFINITIONS OF MYOCARDIAL INFARCTION. THE UPPER REFERENCE LIMIT (URL) OF TROPONIN, DEFINED THE 99TH PERCENTILE OF cTnI DISTRIBUTION IN A REFERENCE POPULATION, HAS BEEN CONFIRMED THE DECISION THRESHOLD FOR NV DIAGNOSIS. Performed By: #### C MADM LIPA, CMP #### [facility] [address] [place] [address] Dr. Suraj Choe NICHOLAS 28 ng/mL Normal 9-82 [facility] Comment on above: Performed By: #### C MADM LIPA, CMP #### [facility] [address] [place] [address] Dr. Suraj Choe CBC AUTO DIFFon 01-31-2022 BASO # 0.0 103/ul Normal 0.0-0.1 [facility] Comment on above: Performed By: #### C BC #### [facility] [address] [place] [address] Dr. Suraj Choe Basophils/100 WBC (Bld) 0.7 % Normal 0.2-2.0 [facility] Comment on above: Performed By: #### C BC #### [facility] [address] [place] [address] Dr. Suraj Choe EO # 0.1 103/ul Normal 0.0-0.7 [facility] Comment on above: Performed By: #### C BC #### [facility] [address] [place] [address] Dr. Suraj Choe Eosinophils/100 WBC (Bld) 1.4 % Normal 0.9-7.0 [facility] Comment on above: Performed By: #### C BC #### [facility] [address] [place] [address] Dr. Suraj Choe Erythrocyte distribution width (RBC) [Ratio] 14.2 % Normal 11.0-15.0 [facility] Comment on above: Performed By: #### C BC #### [facility] [address] [place] [address] Dr. Suraj Choe Hematocrit (Bld) [Volume fraction] 38.6 % Normal 36.0-48.0 [facility] Comment on above: Performed By: #### C BC #### [facility] [address] [place] [address] Dr. Suraj Choe Hemoglobin (Bld) [Mass/Vol] 12.3 g/dL Normal 12.0-16.0 [facility] Comment on above: Performed By: #### C BC #### [facility] [address] [place] [address] Dr. Suraj Choe IG # 0.01 10e3/ul Normal 0.00-0.03 [facility] Comment on above: Performed By: #### C BC #### [facility] [address] [place] [address] Dr. Suraj Choe IG % 0.2 % Normal 0.0-0.5 [facility] Comment on above: Performed By: #### C BC #### [facility] [address] [place] [address] Dr. Suraj Choe LYMPH # 2.1 103/ul Normal 1.2-3.8 [facility] Comment on above: Performed By: #### C BC #### [facility] [address] [place] [address] Dr. Sruaj Choe Lymphocytes/100 WBC (Bld) 50.7 % Normal 20.5-60.0 [facility] Comment on above: Performed By: #### C BC #### [facility] [address] [place] [address] Dr. Suraj Choe MANUAL DIFF REQ NO Normal [facility] Comment on above: Performed By: #### C BC #### [facility] [address] [place] [address] Dr. Suraj Choe MCH (RBC) [Entitic mass] 27.6 pg Normal 26.7-34.0 [facility] Comment on above: Performed By: #### C BC #### [facility] [address] [place] [address] Dr. Suraj Choe MCHC (RBC) [Mass/Vol] 31.9 g/dL Normal 29.9-35.2 [facility] Comment on above: Performed By: #### C BC #### [facility] [address] [place] [address] Dr. Suraj Choe MCV (RBC) [Entitic vol] 86.5 fL Normal 81.0-99.0 [facility] Comment on above: Performed By: #### C BC #### [facility] [address] [place] [address] Dr. Suraj Choe MONO # 0.3 103/ul Normal 0.3-0.8 [facility] Comment on above: Performed By: #### C BC #### [facility] [address] [place] [address] Dr. Suraj Choe Monocytes/100 WBC (Bld) 5.9 % Normal 1.7-12.0 [facility] Comment on above: Performed By: #### C BC #### [facility] [address] [place] [address] Dr. Suraj Choe NEUT # 1.7 103/ul Normal 1.4-6.5 [facility] Comment on above: Performed By: #### C BC #### [facility] [address] [address] [address] Suraj Choe Neutrophils/100 WBC (Bld) 41.1 % Critically low 43.0-75.0 [facility] Comment on above: Performed By: #### C BC #### [facility] [address] [address] [address] Suraj Choe Platelet mean volume (Bld) [Entitic vol] 9.6 fL Normal 9.5-13.5 [facility] Comment on above: Performed By: #### C BC #### [facility] [address] [address] [address] Suraj Choe PLT 309 103/ul Normal 150-450 [facility] Comment on above: Performed By: #### C BC #### [facility] [address] [address] [address] Suraj Choe RBC 4.46 106/ul Normal 4.20-5.40 [facility] Comment on above: Performed By: #### C BC #### [facility] [address] [address] [address] Suraj Choe WBC 4.2 103/ul Normal 4.0-11.0 [facility] Comment on above: Performed By: #### C BC #### [facility] [address] [place] [address] ABD/PELVIS WO CONon [...] SAIRA VAUGHAN Date: 2022-01-31 17:03 Normal [facility] CT HEAD WO CONon 01-31-2022 CT [...] SAIRA VAUGHAN Date: 2022-01-31 17:06 Normal [facility] CULTURE URINEon 01-31-2022 CULTURE URINE Culture Observations : MODERATE GROWTH OF MIXED GENITAL JEAN PAUL. NO POTENTIAL PATHOGENS SEEN. Normal [facility] Comment on above: Performed By: #### U RCX ####[facility] [address] [address]Dr. Rachelshy Choe Covid-19 PCR ([facility]on 01-15 SARS-CoV-2 (COVID-19) RNA JERRY+probe Ql (Unsp spec) Not detected Normal NOT DETECTED [facility] Comment on above: Result Comment: This test is not yet approved or cleared by the [place] FDA. When there are no FDA-approved or cleared tests available, and other criteria are met, FDA can make tests available under an emergency access mechanism called an Emergency Use Authorization (EUA). The EUA for this test is supported by the Data Entry Operator of Health and Human Service's (HHS's) declaration [...] consistent with SARS-CoV-2. Performed By: #### C [facility] #### [facility] [address] [address] [address] Suraj Choe ER URINE PROFILEon 2 Bilirubin Ql (U) Negative Normal NEGATIVE [facility] Comment on above: Performed By: #### GENA AGUILA ####[facility] [address] [address]Dr. Suraj Choe Clarity (U) SL CLOUDY Abnormal CLEAR [facility] Comment on above: Performed By: #### GENA AGUILA ####[facility] [address] [address]Dr. Suraj Choe Color (U) LT. YELLOW Normal YELLOW [facility] Comment on above: Performed By: #### PAN AGUILARO ####[facility] [address] [address]Dr. Suraj RIVEROAHD A micrscopic examination will be performed if indicated. Normal [facility] Comment on above: Performed By: #### PAN AGUILARO ####[facility] [address] [address]Dr. Suraj Choe Glucose Ql (U) Negative Normal NEGATIVE [facility] Comment on above: Performed By: #### PAN AGUILARO ####[facility] [address] [address]Dr. Suraj Choe Hemoglobin Ql (U) MODERATE Abnormal NEGATIVE [facility] Comment on above: Performed By: #### PAN AGUILARO ####[facility] [address] [address]Dr. Suraj Choe Ketones Ql (U) Negative Normal NEGATIVE [facility] Comment on above: Performed By: #### Flori MONTANEZ UMICRO ####[facility] [address] [address]Dr. Suraj Choe LEUKOCYTES MODERATE Abnormal NEGATIVE [facility] Comment on above: Performed By: #### Flori MONTANEZ UMICRO ####[facility] [address] [address]Dr. Suraj Choe Nitrite Ql (U) Negative Normal NEGATIVE [facility] Comment on above: Performed By: #### Flori MONTANEZ UMICRO ####[facility] [address] [address]Dr. Suraj Choe pH (U) 6.0 [pH] Normal 5-9 [facility] Comment on above: Performed By: #### Flori MONTANEZ UMICRO ####[facility] [address] [place], [place] [address]Dr. Suraj Choe SPEC GRAVITY 1.015 Normal 1.005-<=1.025 [facility] Comment on above: Performed By: #### Flori MONTANEZ UMICRO ####[facility] [address] [place], [place] [address]Dr. Suraj Choe UA PROTEIN Negative Normal NEGATIVE/ TRACE [facility] Comment on above: Performed By: #### Flori MONTANEZ UMICRO ####[facility] [address] [address]Dr. Suraj Choe UR MICRO IND INDICATED Normal [facility] Comment on above: Performed By: #### Flori MONTANEZ UMICRO ####[facility] [address] [address]Dr. Suraj Choe Urobilinogen Qn (U) 1.0 {Dhiraj'U}/dL Normal 0.2 - 1. 0 [facility] Comment on above: Performed By: #### Flori MONTANEZ UMICRO ####[facility] [address] [address]Dr. Suraj Choe INFLUENZA A AND B AGon 01-31 INFLUANEGH SEE BELOW Normal [facility] Comment on above: Result Comment: Nega tive for Flu A protein angiten. Infection due to Flu A cannot be ruled out. Flu A angiten in the sample may be below the detection limit of the test. Performed By: #### I NFLUAB ####[facility] [address] [place], [place] [address]Dr. Suraj Choe INFLUBNEGH SEE BELOW Normal [facility] Comment on above: Result Comment: Nega tive for Flu B protein antigen. Infection due to Flu B cannot be ruled out. Flu B antigen in the sample may be below the detection limit of the test. Performed By: #### I NFLUAB ####[facility] [address] [place], [place] [address]Dr. Suraj Cheo INFLUENZA A AG Negative Normal NEGATIVE SEE COMMENT [facility] Comment on above: Performed By: #### I NFLUAB ####[facility] [address] [place], [place] [address]Dr. Suraj Choe INFLUENZA B AG Negative Normal NEGATIVE SEE COMMENT [facility] Comment on above: Performed By: #### I NFLUAB ####[facility] [address] [place], [place] [address]DrGemma Choe INTERNAL CONTROLS Within Normal Limits Normal Wi thin Normal Limits [facility] Comment on above: Performed By: #### I NFLUAB ####[facility] [address] [place], [place] [address]DrGemma Choe LIPASEon 01-31-2022 Lipase [Catalytic activity/Vol] 142.0 U/L Normal 73.0-393.0 [facility] Comment on above: Performed By: #### C MADM, LIPA, CMP #### [facility] [address] [place] [address] Dr. Suraj Choe PROF 14(COMP METB)on Albumin [Mass/Vol] 3.7 g/dL Normal 3.4-5.0 [facility] Comment on above: Performed By: #### C MADM, LIPA, CMP #### [facility] [address] [place] [address] Dr. Suraj Choe Albumin/Globulin [Mass ratio] 1.0 {ratio} Normal [facility] Comment on above: Performed By: #### C BERONICA BAKERA, CMP #### [facility] [address] [address] [address] Suraj Choe ALP [Catalytic activity/Vol] 78 U/L Normal 46-116 [facility] Comment on above: Performed By: #### C SAMUEL LIPA, CMP #### [facility] [address] [address] [address] Suraj Choe ALT [Catalytic activity/Vol] 12 U/L Critically low 14-59 [facility] Comment on above: Performed By: #### C BERONICA BAKERA, CMP #### [facility] [address] [place] [address] Dr. Suraj Choe Anion gap [Moles/Vol] 6.3 mmol/L Normal [facility] Comment on above: Performed By: #### C SAMUEL LIPA, CMP #### [facility] [address] [place] [address] Dr. Suraj Choe AST [Catalytic activity/Vol] 23 U/L Normal 15-37 [facility] Comment on above: Performed By: #### C BERONICA BAKERA, CMP #### [facility] [address] [place] [address] Dr. Suraj Choe Bilirubin [Mass/Vol] 0.5 mg/dL Normal 0.2-1.0 [facility] Comment on above: Performed By: #### C SAMUEL LIPA, CMP #### [facility] [address] [place] [address] Dr. Suraj Choe Calcium [Mass/Vol] 9.7 mg/dL Normal 8.5-10.1 [facility] Comment on above: Performed By: #### C SAMUEL LIPA, CMP #### [facility] [address] [place] [address] Dr. Suraj Choe Chloride [Moles/Vol] 106 mmol/L Normal 98-107 [facility] Comment on above: Performed By: #### C SAMUEL LIPA, CMP #### [facility] [address] [address] [address] Suraj Choe CO2 [Moles/Vol] 30.9 mmol/L Normal 21.0-32.0 [facility] Comment on above: Performed By: #### C MADM, LIPA, CMP #### [facility] [address] [address] [address] Suraj Choe Creatinine [Mass/Vol] 0.71 mg/dL Normal 0.55-1.02 [facility] Comment on above: Performed By: #### C MADM, LIPA, CMP #### [facility] [address] [address] [address] Suraj Choe EGFR-AF SAUDI ARABIAN >60 Normal >=60 [facility] Comment on above: Performed By: #### C MADM, LIPA, CMP #### [facility] [address] [address] [address] Suraj Choe EGFR-NON AF SAUDI ARABIAN >60 Normal >=60 [facility] Comment on above: Performed By: #### C MADM, LIPA, CMP #### [facility] [address] [address] [address] Suraj Choe Globulin (S) [Mass/Vol] 3.7 g/dL Normal [facility] Comment on above: Performed By: #### C MADM, LIPA, CMP #### [facility] [address] [address] [address] Suraj Choe Glucose [Mass/Vol] 92 mg/dL Normal 74-106 [facility] Comment on above: Performed By: #### C MADM, LIPA, CMP #### [facility] [address] [address] [address] Suraj Choe Potassium [Moles/Vol] 4.2 mmol/L Normal 3.5-5.1 [facility] Comment on above: Performed By: #### C MADM, LIPA, CMP #### [facility] [address] [address] [address] Suraj Choe Protein [Mass/Vol] 7.4 g/dL Normal 6.4-8.2 [facility] Comment on above: Performed By: #### C DANIEL BAKER, CMP #### [facility] [address] [address] [address] Suraj Choe Sodium [Moles/Vol] 139 mmol/L Normal 136-145 [facility] Comment on above: Performed By: #### C DANIEL BAKER, CMP #### [facility] [address] [address] [address] Suraj Choe Urea nitrogen [Mass/Vol] 20.0 mg/dL Critically high 7.0-18.0 [facility] Comment on above: Performed By: #### C DANIEL BAKER, CMP #### [facility] [address] [address] [address] Suraj Choe Urea nitrogen/Creatinine [Mass ratio] 28.2 mg/mg Normal [facility] Comment on above: Performed By: #### C DANIEL BAKER, CMP #### [facility] [address] [address] [address] Suraj Choe PROTIMEon 01-31-2022 INR Coag (PPP) [Relative time] 1.10 {INR} Normal [facility] Comment on above: Performed By: #### P TT, PT ####[facility] [address] [address]DrGemma Choe INR GUIDELINES SEE BELOW Normal [facility] Comment on above: Result Comment: ANANYA RED INR: 2.0 - 3.0 CONDITIONS NOT LISTED BELOW 2.5 - 3.5 FOR PROSTHETIC HEART VALVE REPLACEMENT 2.5 - 3.5 RECURRENT THROMBOSIS Performed By: #### P TT, PT ####[facility] [address] [address]Dr. Suraj Choe PT Coag (PPP) [Time] 11.8 s Critically high 9.0-11.6 [facility] Comment on above: Performed By: #### P TT, PT ####[facility] [address] [address]Dr. Suraj Choe PTTon 12-17-2022 aPTT Coag (Bld) [Time] 26.5 s Normal 22.3-36.2 [facility] Comment on above: Performed By: #### P TT, PT ####[facility] [address] [place], [place] [address]Dr. Suraj Choe URINE MICROSCOPIC ONLYon BACTERIA SMALL Abnormal NONE SEEN [facility] Comment on above: Performed By: #### Flori MONTANEZ UMICRO ####[facility] [address] [place], [place] [address]Dr. Suraj Choe Bacteria identified Cx Nom (U) INDICATED Normal [facility] Comment on above: Performed By: #### Flori MONTANEZ UMICRO ####[facility] [address] [place], [place] [address]Dr. Suraj Choe CAST NONE SEEN Normal NONE SEEN [facility] Comment on above: Performed By: #### Flori MONTANEZ UMICRO ####[facility] [address] [place], [place] [address]Dr. Sruaj Choe Crystals LM Nom (Urine sed) NONE SEEN Normal NONE SEEN [facility] Comment on above: Performed By: #### Flori MONTANEZ UMICRO ####[facility] [address] [place], [place] [address]Dr. Suraj Choe Epithelial cells LM Ql (Urine sed) MODERATE Abnormal NONE SEEN /RARE [facility] Comment on above: Performed By: #### Flori MONTANEZ UMICRO ####[facility] [address] [place], [place] [address]Dr. Suraj Choe MUCOUS NONE SEEN Normal NONE SEEN [facility] Comment on above: Performed By: #### Flori MONTANEZ UMICRO ####[facility] [address] [place], [place] [address]Dr. Suraj Choe RBC 0-2 Normal 0-2 [facility] Comment on above: Performed By: #### Flori MONTANEZ UMICRO ####[facility] [address] [place], [place] [address]Dr. Suraj Choe WBC 2-5 Abnormal NONE SEEN [facility] Comment on above: Performed By: #### Flori GENA MONTANEZ ####[facility] [address] [place], [place] [address]BkDr. Suraj Choe XR CHEST 1 Von 01-31-2022 [...] SANIYA VICTOR Date: 2022-01-31 16:59 Normal [facility] CBC AUTO DIFFon 08-22-2021 BASO # 0.0 103/ul Normal 0.0-0.1 [facility] Comment on above: Performed By: #### C BC #### [facility] [address] [address] [address] Suraj Choe Basophils/100 WBC (Bld) 0.9 % Normal 0.2-2.0 [facility] Comment on above: Performed By: #### C BC #### [facility] [address] [address] [address] Suraj Choe EO # 0.1 103/ul Normal 0.0-0.7 [facility] Comment on above: Performed By: #### C BC #### [facility] [address] [address] [address] Suraj Choe Eosinophils/100 WBC (Bld) 1.3 % Normal 0.9-7.0 [facility] Comment on above: Performed By: #### C BC #### [facility] [address] [address] [address] Suraj Choe Erythrocyte distribution width (RBC) [Ratio] 13.5 % Normal 11.0-15.0 [facility] Comment on above: Performed By: #### C BC #### [facility] [address] [address] [address] Suraj Choe Hematocrit (Bld) [Volume fraction] 40.5 % Normal 36.0-48.0 [facility] Comment on above: Performed By: #### C BC #### [facility] [address] [place] [address] Dr. Suraj Choe Hemoglobin (Bld) [Mass/Vol] 12.7 g/dL Normal 12.0-16.0 [facility] Comment on above: Performed By: #### C BC #### [facility] [address] [place] [address] Dr. Suraj Choe IG # 0.01 10e3/ul Normal 0.00-0.03 [facility] Comment on above: Performed By: #### C BC #### [facility] [address] [place] [address] Dr. Suraj Choe IG % 0.2 % Normal 0.0-0.5 [facility] Comment on above: Performed By: #### C BC #### [facility] [address] [place] [address] Dr. Suraj Choe LYMPH # 1.9 103/ul Normal 1.2-3.8 [facility] Comment on above: Performed By: #### C BC #### [facility] [address] [place] [address] Dr. Suraj Choe Lymphocytes/100 WBC (Bld) 42.8 % Normal 20.5-60.0 [facility] Comment on above: Performed By: #### C BC #### [facility] [address] [place] [address] Dr. Suraj Choe MANUAL DIFF REQ NO Normal [facility] Comment on above: Performed By: #### C BC #### [facility] [address] [place] [address] Dr. Suraj Choe MCH (RBC) [Entitic mass] 27.9 pg Normal 26.7-34.0 [facility] Comment on above: Performed By: #### C BC #### [facility] [address] [place] [address] Dr. Suraj Choe MCHC (RBC) [Mass/Vol] 31.4 g/dL Normal 29.9-35.2 [facility] Comment on above: Performed By: #### C BC #### [facility] [address] [place] [address] Dr. Suraj Choe MCV (RBC) [Entitic vol] 88.8 fL Normal 81.0-99.0 [facility] Comment on above: Performed By: #### C BC #### [facility] [address] [place] [address] Dr. Suraj Choe MONO # 0.3 103/ul Normal 0.3-0.8 [facility] Comment on above: Performed By: #### C BC #### [facility] [address] [place] [address] Dr. Suraj Choe Monocytes/100 WBC (Bld) 7.1 % Normal 1.7-12.0 [facility] Comment on above: Performed By: #### C BC #### [facility] [address] [place] [address] Dr. Suraj Choe NEUT # 2.2 103/ul Normal 1.4-6.5 [facility] Comment on above: Performed By: #### C BC #### [facility] [address] [place] [address] Dr. Suraj Choe Neutrophils/100 WBC (Bld) 47.7 % Normal 43.0-75.0 [facility] Comment on above: Performed By: #### C BC #### [facility] [address] [place] [address] Dr. Suraj Choe Platelet mean volume (Bld) [Entitic vol] 9.4 fL Critically low 9.5-13.5 [facility] Comment on above: Performed By: #### C BC #### [facility] [address] [place] [address] Dr. Suraj Choe PLT 279 103/ul Normal 150-450 [facility] Comment on above: Performed By: #### C BC #### [facility] [address] [place] [address] Dr. Suraj Choe RBC 4.56 106/ul Normal 4.20-5.40 [facility] Comment on above: Performed By: #### C BC #### [facility] [address] [place] [address] Dr. Suraj Choe WBC 4.5 103/ul Normal 4.0-11.0 [facility] Comment on above: Performed By: #### C BC #### [facility] [address] [address] [address] Suraj Choe PROF CHEM 8 (BAS METB)on Anion gap [Moles/Vol] 10.2 mmol/L Normal [facility] Comment on above: Performed By: #### B MP ####[facility] [address] [address]DrGemma Choe Calcium [Mass/Vol] 9.3 mg/dL Normal 8.5-10.1 [facility] Comment on above: Performed By: #### B MP ####[facility] [address] [address]Dr. Suraj Choe Chloride [Moles/Vol] 106 mmol/L Normal 98-107 [facility] Comment on above: Performed By: #### B MP ####[facility] [address] [address]Dr. Suraj Choe CO2 [Moles/Vol] 28.7 mmol/L Normal 21.0-32.0 [facility] Comment on above: Performed By: #### B MP ####[facility] [address] [address]DrGemma Choe Creatinine [Mass/Vol] 0.76 mg/dL Normal 0.55-1.02 [facility] Comment on above: Performed By: #### B MP ####[facility] [address] [address]DrGemma Choe EGFR-AF SAUDI ARABIAN >60 Normal >=60 [facility] Comment on above: Performed By: #### B MP ####[facility] [address] [address]DrGemma Choe EGFR-NON AF SAUDI ARABIAN >60 Normal >=60 [facility] Comment on above: Performed By: #### B MP ####[facility] [address] [address]DrGemma Choe Glucose [Mass/Vol] 98 mg/dL Normal 74-106 [facility] Comment on above: Performed By: #### B MP ####[facility] [address] [address]Dr. Suraj Choe Potassium [Moles/Vol] 3.9 mmol/L Normal 3.5-5.1 [facility] Comment on above: Performed By: #### B MP ####[facility] [address] [address]Dr. Suraj Choe Sodium [Moles/Vol] 141 mmol/L Normal 136-145 [facility] Comment on above: Performed By: #### B MP ####[facility] [address] [address]Dr. Suraj Choe Urea nitrogen [Mass/Vol] 22.0 mg/dL Critically high 7.0-18.0 [facility] Comment on above: Performed By: #### B MP ####[facility] [address] [address]Dr. Suraj Choe Urea nitrogen/Creatinine [Mass ratio] 28.9 mg/mg Normal [facility] Comment on above: Performed By: #### B MP ####[facility] [address] [address]Dr. Suraj Choe XR KUB 1 VIEWon 08-22-2021 XR KUB [...] by: PINKY GARCIA Date: 2021-08-22 16:41 Normal [facility] Encounters Encounter Date Encounter Type Care Provider Facility Start: 09-07-2023 End: 09-07-2023 Emergency department patient visit PAIGE ORDONEZ [facility] Start: 06-15-2022 End: 06-16-[address] TYRESE PATEL . Facility: Start: 03-07-2022 End: 01-21-[address] PAIGE ORDONEZ . Facility: Start: 02-23-2022 End: 02-24-[address] PAIGE ORDONEZ . Facility:[facility] Start: 01-31-2022 End: 01-31-[address] PAIGE ORDONEZ . Facility:[facility] Start: 08-22-2021 End: 08-22-[address] PAIGE ORDONEZ . Facility: Payers Date Payer Category Payer Medicare [id number] 1960 Medicare [id number] 1945 Unknown [id number] 2.16.84 [id number] 1945 Unknown [id number] 2.16.84 [id number] 1945 Unknown [id number] 2.16.84 [id number] 1945 Unknown [id number] 2.16.84 [id number] 1945 Unknown [id number] 2.16.84 [id number] 1945 Unknown [id number] 2.16.8 [id number] Summary Purpose Family History No Family History Records FoundNo Family History Records Found Advance Directives No Advanced Directives Records FoundNo Advanced Directives Records Found Additional Source Comments INFORMATION SOURCE (unrecogn ized section and content) DATE CREATED AUTHOR 06/20/2022 [facility] DATE CREATED AUTHOR AUTHOR'S ORGANIZ ATION 09/10/2023 [facility] FOR RECORDS PERTAINING TO PATIENTS WHO ARE [...] BE BASED ON THE PRIMARY CLINICAL RECORDS. [facility], [facility]. provides no warranty or guarantee of the accuracy or completeness of information in this document.
--- NOTE | 2023-12-21 17:56 | ED_ITS ---
HPI - Chest Pain General Chief Complaint: Chest Pain Stated Complaint: chest pain Time Seen by Provider: 12/21/23 17:47 History of Present Illness HPI narrative: 78-year-old female to the emergency department with chief complaint of chest pain. Patient reports an intermittent left-sided chest discomfort that is been ongoing for some time. She took some aspirin today. Symptoms seem to be worse today. She reports she was bringing her in any way to be seen for a feeding tube issue and decided she would like to get checked out. She denies any shortness of breath. Denies any history of any heart problems. She denies any major medical problems. 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 PMHx: denies Related Data Home Medications ?Medication ?Instructions ?Recorded ?Confirmed No Known Home Medications 12/21/23 12/21/23 Allergies Allergy/AdvReac Type Severity Reaction Status Date / Time No Known Drug Allergies Allergy Verified 01/13/23 11:17 Review of Systems ROS Status of ROS 10 or more systems reviewed and unremark able except as noted in history and below [facility] Medical History (Updated 12/21/23 @ 18:03 by Frank Coles MD) GERD (gastroesophageal reflux disease) ?K21.9 - Gastro-esophageal reflux disease without esophagitis (ICD-10) High cholesterol ?E78.00 - Pure hypercholesterolemia, unspecified (ICD-10) Chest pain ?R07.9 - Chest pain, unspecified (ICD-10) Surgical History (Updated 01/13/23 @ 15:37 by Suzie Sandhu) H/O: hysterectomy ?Z90.710 - Acquired absence of both cervix and uterus (ICD-10) Family History (Updated 01/13/23 @ 15:40 by Suzie Sandhu) Father Family history of myocardial infarction Mother Family history of stroke Social History (Updated 01/13/23 @ 15:41 by Suzie Sandhu) Within the past year, how often did you have a drink containing alcohol: never Score interpretation: A score less than 3 is consistent with normal alcohol consumption. Smoking status: Never smoker Non-prescribed substance use: denies use Previous occupational history: retired Highest level of school completed/degree received: 11th grade Are you now , , , , never or living with a partner: Little interest or pleasure in doing things: not at all Feeling down, depressed, or hopeless: not at all Feel stressed/tense/nervous/anxious/difficulty sleeping: only a little Due to disability, difficulty making decisions: No Do you think of yourself as: straight/heterosexual Exam Narrative Exam Narrative: VITALS: I have reviewed the triage vital signs. GENERAL: Well developed, well appearing adult in no acute distress. NEURO: Alert and oriented. Moves all extremities. Face is symmetric and expressive. EYES: PERRL. No scleral icterus or conjunctival injection. No discharge. HENT: Normocephalic, atraumatic. Hearing is grossly intact. Nares grossly patent and without discharge. Mucous membranes moist. NECK: No JVD. Patient moves neck without restriction. CARDIO: Rhythm regular. Normal rate. No murmur, rub, or gallop. Pulses equal bilaterally in the upper and lower extremity. No lower extremity edema. PULM: Lungs clear to auscultation in all [place]. No wheezes, rales, or rhonchi. No conversational dyspnea. No splinting, stridor, or accessory muscle use. GI/: Abdomen is soft and non-tender. Normoactive bowel sounds. EXTREMITIES: Symmetric muscle bulk. No joint swelling. No clubbing, cyanosis, or deformity. SKIN: Warm and dry. Normal turgor. No rash or lesions appreciated. PSYCH: Mood, affect, and interaction is appropriate to the setting. Constitutional Vital Signs, click to edit/add: Last Vital Signs Temp 98.8 F 12/21/23 17:50 Pulse 72 12/21/23 17:50 Resp 16 12/21/23 17:50 BP 172/100 H 12/21/23 17:50 Pulse Ox 96 12/21/23 17:50 O2 Del Method Room Air 12/21/23 17:50 Course Vital Signs Vital signs: Vital Signs Temperature 98.8 F 12/21/23 17:50 Pulse Rate 72 12/21/23 17:50 Respiratory Rate 16 12/21/23 17:50 Blood Pressure 172/100 H 12/21/23 17:50 Pulse Oximetry 96 12/21/23 17:50 Oxygen Delivery Method Room Air 12/21/23 17:50 Temperature 98.8 F 12/21/23 17:50 Pulse Rate 72 12/21/23 17:50 Respiratory Rate 16 12/21/23 17:50 Blood Pressure 172/100 H 12/21/23 17:50 Pulse Oximetry 96 12/21/23 17:50 Oxygen Delivery Method Room Air 12/21/23 17:50 MDM - Chest Pain MDM Narrative Medical decision making narrative: 78-year-old female to the emergency department with chief complaint of chest pain. Vital stable, the patient is afebrile. Cardiac workup is initiated. She declines any pain medication. She took aspirin prior to arrival. Initial EKG without evidence of ischemia. Blood work reviewed and noted. Initial troponin is low. Repeat troponin is ordered at 1 hour stephan. Case was signed out to Dr. Duarte with results of 1 hour troponin and disposition pending. Patient's heart score is moderate risk. We will offer the patient admission for further cardiac evaluation. Heart Score for Major Cardiac Event History: Example factors for history - pattern of chest pain, onset, duration, relation with exercise, stress or cold, localization, concomitant symptoms. reaction to sublingual nitrates, [] Highly suspicious +2 [] Moderately suspicious +1 [x] Slightly suspicious 0 EKG: [] Significant ST-Depression +2 [x] Non specific repolarization disturbance +1 [] Normal 0 Age: [x] >= 65 +2 [] 45-65 + 1 [] <45 0 Risk Factors: (HLD, HTN, DM, Cigarette Smoking, Pos Family Hx, Obesity) [] >3 risk factors or hx of atherosclerotic disease + 2 [x] 1-2 risk factors + 1 [] No risk factors known 0 Troponin: [] >= 3X normal + 2 [] 1-3X normal + 1 [] <= Normal 0 [] 0-3 Points 0.9 - 1.7% risk of major adverse cardiac event in 6 weeks [x] 4-6 Points 12-16.6% risk of major adverse cardiac event in 6 weeks [] 7-10 Points 50-65% risk of major adverse cardiac event in 6 weeks [] 0-3 Points with 2 sets of negative cardiac markers <1% risk of major adverse cardiac event in 30 days. Medical Records Data Attestation: I reviewed the patient's medical records. Lab Data Attestation: I reviewed the patient's lab results. Labs: Lab Results 12/21/23 Range/Units 18:00 WBC 3.9 L (4.0-11.0) 10^3/uL RBC 4.34 (4.20-5.40) 10^6/uL Hgb 12.5 (12.0-16.0) g/dL Hct 39.1 (36.0-48.0) % MCV 90.1 (81.0-99.0) fL MCH 28.8 (26.7-34.0) pg MCHC 32.0 (29.9-35.2) g/dL RDW 13.6 (11.0-15.0) % Plt Count 301 (150-450) 10^3/uL MPV 9.4 L (9.5-13.5) fL Neut % (Auto) 36.9 L (43.0-75.0) % Lymph % (Auto) 52.5 (20.5-60.0) % [place] % (Auto) 7.2 (1.7-12.0) % Eos % (Auto) 2.3 (0.9-7.0) % Baso % (Auto) 0.8 (0.2-2.0) % Neut # (Auto) 1.4 (1.4-6.5) 10^3/uL Lymph # (Auto) 2.0 (1.2-3.8) 10^3/uL [place] # (Auto) 0.3 (0.3-0.8) 10^3/uL Eos # (Auto) 0.1 (0.0-0.7) 10^3/uL Baso # (Auto) 0.0 (0.0-0.1) 10^3/uL Abs Immat Gran (auto) 0.01 (0.00-0.03) 10^3/uL Imm/Tot Granulo (auto) 0.3 (0.0-0.5) % PT 12.2 H (9.0-11.6) sec INR 1.17 APTT 26.8 (22.3-36.2) sec Sodium 146 H (136-145) mmol/L Potassium 4.1 (3.5-5.1) mmol/L Chloride 109 H (98-107) mmol/L Carbon Dioxide 27.5 (21.0-32.0) mmol/L Anion Gap 13.6 BUN 27.0 H (7.0-18.0) mg/dL Creatinine 0.87 (0.55-1.02) mg/dL Est GFR ( Amer) >60 (>=60 mL/min/1.73m^2) Est GFR (Non-Af Amer) >60 (>=60 mL/min/1.73m^2) BUN/Creatinine Ratio 31.0 Glucose 102 (74-106) mg/dL Calcium 9.9 (8.5-10.1) mg/dL Total Bilirubin 0.6 (0.2-1.0) mg/dL AST 19 (15-37) U/L ALT 12 L (14-59) U/L Alkaline Phosphatase 82 (46-116) U/L Troponin I High Sens 6.2 (4.0-51.3) pg/mL Total Protein 7.4 (6.4-8.2) g/dL Albumin 3.8 (3.4-5.0) g/dL Globulin 3.6 g/dL Albumin/Globulin Ratio 1.1 ECG Data Attestation: I personally reviewed and interpreted this ECG as follows: (Normal sinus rhythm at a rate of 55. Right bundle branch block. No STEMI. Normal QTc at 442. ) Discharge Plan Discharge Chief Complaint: Chest Pain Clinical Impression: Chest pain Patient Disposition: Still a Patient Prescriptions / Home Meds: No Action No Known Home Medications Print Language: Bengali Referrals: Cristian Hung MD [Primary Care Provider] - 1 week
[2023-12-21 18:08] LABS: Basophils Percent Auto 0.8 % (0.2-2.0); Eosinophils Absolute Auto 0.1 10^3/uL (0.0-0.7); Eosinophils Percent Auto 2.3 % (0.9-7.0); Hematocrit 39.1 % (36.0-48.0); Hemoglobin 12.5 g/dL (12.0-16.0); Immature Granulocytes Abs Auto 0.01 10^3/uL (0.00-0.03); Immature Granulocytes Pct Auto 0.3 % (0.0-0.5); Lymphocytes Percent Auto 52.5 % (20.5-60.0); Mean Corpuscular Hemoglobin 28.8 pg (26.7-34.0); Mean Corpuscular Volume 90.1 fL (81.0-99.0); Mean Platelet Volume 9.4 fL (9.5-13.5); Monocytes Absolute Auto 0.3 10^3/uL (0.3-0.8); Monocytes Percent Auto 7.2 % (1.7-12.0); Neutrophils Absolute Auto 1.4 10^3/uL (1.4-6.5); Neutrophils Percent Auto 36.9 % (43.0-75.0); Platelet Count 301 10^3/uL (150-450); Red Blood Count 4.34 10^6/uL (4.20-5.40); Red Cell Distribution Width 13.6 % (11.0-15.0); White Blood Count 3.9 10^3/uL (4.0-11.0)
[2023-12-21 18:22] LABS: Anion Gap 13.6
[2023-12-21 18:24] LABS: Alanine Aminotransferase 12 U/L (14-59); Albumin Globulin Ratio 1.1; Albumin Level 3.8 g/dL (3.4-5.0); Alkaline Phosphatase 82 U/L (46-116); Aspartate Amino Transferase 19 U/L (15-37); Bilirubin Total 0.6 mg/dL (0.2-1.0); Calcium 9.9 mg/dL (8.5-10.1); Carbon Dioxide 27.5 mmol/L (21.0-32.0); Chloride 109 mmol/L (98-107); Estimated GFR (African America >60 (>=60 mL/min/1.73m^2); Estimated GFR (Non-African Ame >60 (>=60 mL/min/1.73m^2); Globulin 3.6 g/dL; Glucose 102 mg/dL (74-106); Potassium 4.1 mmol/L (3.5-5.1); Sodium 146 mmol/L (136-145); Total Protein 7.4 g/dL (6.4-8.2); Troponin I High Sensitivity 6.2 pg/mL (4.0-51.3)
[2023-12-21 18:26] LABS: INR 1.17; Partial Thromboplastin Time 26.8 sec (22.3-36.2); Prothrombin Time 12.2 sec (9.0-11.6)
[2023-12-21 19:31] LABS: Troponin I High Sensitivity 6.7 pg/mL (4.0-51.3)
== END 2023-12-21 20:12 | disposition home or self-care (01) ==
PROVIDERS: Emergency Provider Student in an Organized Health Care Education/Training Program; PCP Family Medicine
DX: R07.89 Other chest pain (principal)
CPT/HCPCS: 36415; 71045; 80053; 84484; 85025; 85610; 85730; 93005; 99285

== ENCOUNTER 2024-02-28 10:51 | Outpatient (OUT) | payer MEDICARE, SELFPAY ==
--- NOTE | 2024-02-28 10:58 | MM_ITS ---
Patient Name: MATIAS MORTON MR#: [id number] : 1945 Exam Date: 02/28/2024 Ordering Doctor: DR Cristian Hung . RADIOLOGY REPORT PROCEDURE: MM TOMOSYNTHESIS SCREENING BI COMPARISON: MG MAMM SCREEN 3D PHYLLIS CAD, 02/23/2022. MM TOMOSYNTHESIS SCREENING BI, 02/24/2023. INDICATIONS: Screening Calculator Name NCI Breast Cancer Risk Assessment Tool 5 Year Breast Cancer Risk 1.70% Lifetime Breast Cancer Risk 2.80% Personal Breast Cancer No Personal Ovarian Cancer No Treatments None Family Cancers None LOCATION: [facility] BREAST COMPOSITION: There are scattered areas of fibroglandular density. FINDINGS: DIAGNOSTIC CATEGORY 1--NEGATIVE. NO CHANGE FROM COMPARISON ASSESSMENT. Scattered benign-appearing calcifications are present. Scattered benign-appearing lymph nodes are present. RIGHT BREAST: No significant suspicious finding. LEFT BREAST: No significant suspicious finding. RECOMMENDATIONS: ROUTINE MAMMOGRAM AND CLINICAL EVALUATION IN 12 MONTHS. PLEASE NOTE: A NORMAL MAMMOGRAM DOES NOT EXCLUDE THE POSSIBILITY OF BREAST CANCER. A CLINICALLY SUSPICIOUS PALPABLE LUMP SHOULD BE BIOPSIED. Dictated by: Joshua Torres MD on 02/28/2024 at 13:18 Approved by: Joshua Torres MD on 02/28/2024 at 13:20
--- OUTSIDE RECORDS SUMMARY | 2024-02-28 11:13 | XMS_ITS | CCD ---
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 Phone JOSÉ LUIS ., DR [...] 02-03-2022 Episodic Other aftercare (1 source) Other half-way (current) drug therapy; Translations: [OTH DETENTION CURRENT DRUG THERAPY] Onset: 03-09-2022 Episodic Other [...] ABSOLUTE BASOPHIL 0.0 X10E9/L Normal 0.0-0.2 [facility] Comment on above: Performed By: #### C BCA, 72285-2, CMP, 07371-6 #### [facility] ([id number]) [address] [place] [address], [place] [address] ABSOLUTE NEUTROPHIL 1.9 X10E9/L Normal 1.5-6.6 [facility] Comment on above: Performed By: #### [place] SIMMONS, 14390-4, CMP, 70863-7 #### [facility] ([id number]) [address] [place] [address] 18843 Basophils/100 WBC (Bld) 0.8 % Normal [facility] Comment on above: Performed By: #### [place] SIMMONS, 17261-2, CMP, #### [facility] ([id number]) [address] [place] [address] 88105 Eosinophils (Bld) [#/Vol] 0.1 10*3/uL Normal 0.0-0.4 [facility] Comment on above: Performed By: #### [place] SIMMONS, 68512-2, CMP, #### [facility] ([id number]) [address] [place] [address] 75723 Eosinophils/100 WBC (Bld) 1.3 % Normal [facility] Comment on above: Performed By: #### [place] SIMMONS, 41162-2, CMP, #### [facility] ([id number]) [address] [place] [address] 76981 Erythrocyte distribution width (RBC) [Ratio] 14.2 % Normal 11.5-15.0 [facility] Comment on above: Performed By: #### [place] SIMMONS, 66667-2, CMP, #### [facility] ([id number]) [address] [place] [address] 80336 Hematocrit (Bld) [Volume fraction] 34.7 % Low 35-47 [facility] Comment on above: Performed By: #### [place] SIMMONS, 02546-4, CMP, #### [facility] ([id number]) [address] [place] [address] 60712 Hemoglobin (Bld) [Mass/Vol] 11.4 g/dL Low 11.7-15.5 [facility] Comment on above: Performed By: #### [place] SIMMONS, 61419-5, CMP, #### [facility] ([id number]) [address] [place] [address] 29887 Lymphocytes (Bld) [#/Vol] 1.7 10*3/uL Normal 1.0-3.5 [facility] Comment on above: Performed By: #### [place] SIMMONS, 84743-7, CMP, #### [facility] ([id number]) [address] [place] [address] 24731 Lymphocytes/100 WBC (Bld) 42.2 % Normal [facility] Comment on above: Performed By: #### [place] SIMMONS, 75384-6, CMP, #### [facility] ([id number]) [address] [place] [address] 62103 MCH (RBC) [Entitic mass] 28.4 pg Normal 27-34 [facility] Comment on above: Performed By: #### [place] SIMMONS, 01457-3, CMP, #### [facility] ([id number]) [address] [place] [address] 17215 MCHC (RBC) [Mass/Vol] 32.8 g/dL Normal 32-36 [facility] Comment on above: Performed By: #### [place] SIMMONS, 64697-0, CMP, 28831-4 #### [facility] ([id number]) [address] [place] [address] 70829 MCV (RBC) [Entitic vol] 86 fL Normal 80-100 [facility] Comment on above: Performed By: #### [place] SIMMONS, 83608-1, CMP, 81632-6 #### [facility] ([id number]) [address] [place] [address] 49646 Monocytes (Bld) [#/Vol] 0.3 10*3/uL Normal 0-0.9 [facility] Comment on above: Performed By: #### [place] SIMMONS, 02517-1, CMP, 21243-0 #### [facility] ([id number]) [address] [place] [address] 01435 Monocytes/100 WBC (Bld) 7.1 % Normal [facility] Comment on above: Performed By: #### [place] SIMMONS, 53315-2, CMP, 12898-9 #### [facility] ([id number]) [address] [place] [address] 37845 Neutrophils/100 WBC (Bld) 48.6 % Normal [facility] Comment on above: Performed By: #### [place] SIMMONS, 70849-1, CMP, 23121-4 #### [facility] ([id number]) [address] [place] [address] 18516 Platelet mean volume (Bld) [Entitic vol] 6.8 fL Low 7-12 [facility] Comment on above: Performed By: #### [place] SIMMONS, 44623-6, CMP, 21703-5 #### [facility] ([id number]) [address] [place] [address] 28719 Platelets (Bld) [#/Vol] 370 10*3/uL Normal 150-450 [facility] Comment on above: Performed By: #### [place] SIMMONS, 99366-2, CMP, 43966-3 #### [facility] ([id number]) [address] [place] [address] 71760 RBC COUNT 4.02 X10E12/L Normal 3.80-5.20 [facility] Comment on above: Performed By: #### [place] SIMMONS, 79940-2, CMP, 48238-7 #### [facility] ([id number]) [address] [place] [address] 77539 WBC (Bld) [#/Vol] 4.0 10*3/uL Normal 4.0-11.0 [facility] Comment on above: Performed By: #### C BCA, 24919-2, CMP, 76543-0 #### [facility] ([id number]) [address] [place] [address] 86095 COMPREHENSIVE METABOLIC PANE Dayo 09-07-2023 Albumin [Mass/Vol] 3.9 g/dL Normal 3.2-5.3 [facility] Comment on above: Performed By: #### C BCA, 90407-5, CMP, 84831-3 #### [facility] ([id number]) [address] [place] [address] 70344 ALP [Catalytic activity/Vol] 64 U/L Normal 39-130 [facility] Comment on above: Performed By: #### C BCA, 37131-5, CMP, 37730-4 #### [facility] ([id number]) [address] [place] [address] 48621 ALT [Catalytic activity/Vol] 14 U/L Normal 0-31 [facility] Comment on above: Performed By: #### C BCA, 31504-2, CMP, 82152-8 #### [facility] ([id number]) [address] [place] [address] 25615 Anion gap [Moles/Vol] 7 mmol/L Normal 5-15 [facility] Comment on above: Performed By: #### C BCA, 48674-9, CMP, 41386-9 #### [facility] ([id number]) [address] [place] [address] 67690 AST [Catalytic activity/Vol] 17 U/L Normal 0-41 [facility] Comment on above: Performed By: #### C BCA, 47996-9, CMP, 20432-6 #### [facility] ([id number]) [address] [place] [address] 97004 Bilirubin [Mass/Vol] 0.8 mg/dL Normal 0.3-1.2 [facility] Comment on above: Performed By: #### C BCA, 21447-3, CMP, 47406-0 #### [facility] ([id number]) [address] [place] [address] 37511 Calcium [Mass/Vol] 9.2 mg/dL Normal 8.5-10.5 [facility] Comment on above: Performed By: #### C BCA, 89799-7, CMP, 11605-2 #### [facility] ([id number]) [address] [place] [address] 26910 Chloride [Moles/Vol] 108 mmol/L Normal 98-109 [facility] Comment on above: Performed By: #### C BCA, 93016-7, CMP, 74233-3 #### [facility] ([id number]) [address] [place] [address] 00171 CO2 [Moles/Vol] 26 mmol/L Normal 22-32 [facility] Comment on above: Performed By: #### C BCA, 07254-1, CMP, 03456-3 #### [facility] ([id number]) [address] [place] [address] 08736 Creatinine [Mass/Vol] 0.78 mg/dL Normal 0.40-1.00 [facility] Comment on above: Result Comment: METH OD TRACEABLE TO IDMS STANDARD Performed By: #### C BCA, 16176-1, CMP, 77448-3 #### [facility] ([id number]) [address] [place] [address] 26481 GFR/1.73 sq M.predicted among non-blacks MDRD (S/P/Bld) [Vol rate/Area] 77 mL/min/{1.73_m2} Normal >59 [facility] Comment on above: Result Comment: Reported eGFR is based on the CKD-EPI 2021 equation that does not use a race coefficient. Performed By: #### C BCA, 42129-5, CMP, 85542-0 #### [facility] ([id number]) [address] [place] [address] 47630 Glucose [Mass/Vol] 109 mg/dL High 65-99 [facility] Comment on above: Performed By: #### C BCA, 46353-1, CMP, 10002-9 #### [facility] ([id number]) [address] [place] [address] 06742 Potassium [Moles/Vol] 4.0 mmol/L Normal 3.5-5.0 [facility] Comment on above: Performed By: #### C BCA, 92644-8, CMP, 74447-2 #### [facility] ([id number]) [address] [place] [address] 11606 Protein [Mass/Vol] 7.0 g/dL Normal 6.0-8.0 [facility] Comment on above: Performed By: #### C BCA, 17355-0, CMP, 19586-1 #### [facility] ([id number]) [address] [place] [address] 19198 Sodium [Moles/Vol] 141 mmol/L Normal 134-146 [facility] Comment on above: Performed By: #### C BCA, 36115-5, CMP, 36791-7 #### [facility] ([id number]) [address] [place] [address] 89213 Urea nitrogen [Mass/Vol] 16 mg/dL Normal 5-27 [facility] Comment on above: Performed By: #### C BCA, 09991-1, CMP, 62137-8 #### [facility] ([id number]) [address] [place] [address] 41168 MAGNESIUMon 09-07-2023 Magnesium [Mass/Vol] 2.2 mg/dL Normal 1.8-2.6 [facility] Comment on above: Performed By: #### C BCA, 41870-8, [facility], 71805-4 #### [facility] ([id number]) [address] [place] [address] 25116 Natriuretic peptide B [Mass/ Vol]on 09-07-2023 Natriuretic peptide B (Bld) [Mass/Vol] 15 pg/mL Normal <100.0 [facility] Comment on above: Performed By: #### C BCA, 59425-8, [facility], 03981-1 #### [facility] ([id number]) [address] [place] [address] 30614 US PELVIS TRANSVAGon 023 US PELVIS TRANSVAG [...] PINKY GARCIA Date: 2022-06-15 15:37 Normal [facility] MG MAMM SCREEN 3D PHYLLIS CADon 02-23-2022 MG MAMM SCREEN 3D PHYLLIS CAD Patient: MATIAS MORTON Exam Date: 02/23/2022 : 1945 Gender:F Ordering : DR PAIGE ORDONEZ . Admission #: [id number] Family : Order #: [id number] CLICK HERE TO VIEW EXAM RADIOLOGY REPORT [...] Treatments None Family Cancers None LOCATION: [facility] BREAST COMPOSITION: Scattered areas fibroglandular density. [...] MD on 02/24/2022 at 11:01 Normal [facility] CARDIAC ROLANDO ADMITon 022 CK [Catalytic activity/Vol] 87 U/L Normal 26-192 [facility] Comment on above: Performed By: #### C MADM LIPA, CMP #### [facility] [address] [place] [address] Dr. Suraj Choe CK.MB [Mass/Vol] 0.92 ng/mL Normal <=3.60 [facility] Comment on above: Performed By: #### C MADM LIPA, CMP #### [facility] [address] [place] [address] Dr. Suraj Choe HSTROP 7.5 pg/mL Normal 4.0-51.3 [facility] Comment on above: Result Comment: CUT- OFF POINTS HAVE BEEN ESTABLISHED BASED ON THE FOURTH UNIVERSAL DEFINITIONS OF MYOCARDIAL INFARCTION. THE UPPER REFERENCE LIMIT (URL) OF TROPONIN, DEFINED THE 99TH PERCENTILE OF cTnI DISTRIBUTION IN A REFERENCE POPULATION, HAS BEEN CONFIRMED THE DECISION THRESHOLD FOR OK DIAGNOSIS. Performed By: #### C MADM LIPA, CMP #### [facility] [address] [place] [address] Dr. Suraj Choe NICHOLAS 28 ng/mL Normal 9-82 [facility] Comment on above: Performed By: #### C MADM LIPA, CMP #### [facility] [address] [place] [address] Dr. Suraj Choe CBC AUTO DIFFon 01-31-2022 BASO # 0.0 103/ul Normal 0.0-0.1 [facility] Comment on above: Performed By: #### C BC #### [facility] [address] [place] [address] Dr. Suraj Choe Basophils/100 WBC (Bld) 0.7 % Normal 0.2-2.0 [facility] Comment on above: Performed By: #### C BC #### [facility] [address] [place] [address] Dr. Suraj Choe EO # 0.1 103/ul Normal 0.0-0.7 [facility] Comment on above: Performed By: #### C BC #### [facility] [address] [place] [address] Dr. Suraj Choe Eosinophils/100 WBC (Bld) 1.4 % Normal 0.9-7.0 [facility] Comment on above: Performed By: #### C BC #### [facility] [address] [place] [address] Dr. Suraj Choe Erythrocyte distribution width (RBC) [Ratio] 14.2 % Normal 11.0-15.0 [facility] Comment on above: Performed By: #### C BC #### [facility] [address] [place] [address] Dr. Suraj Choe Hematocrit (Bld) [Volume fraction] 38.6 % Normal 36.0-48.0 [facility] Comment on above: Performed By: #### C BC #### [facility] [address] [place] [address] Dr. Suraj Choe Hemoglobin (Bld) [Mass/Vol] 12.3 g/dL Normal 12.0-16.0 [facility] Comment on above: Performed By: #### C BC #### [facility] [address] [place] [address] Dr. Suraj Choe IG # 0.01 10e3/ul Normal 0.00-0.03 [facility] Comment on above: Performed By: #### C BC #### [facility] [address] [place] [address] Dr. Suraj Choe IG % 0.2 % Normal 0.0-0.5 [facility] Comment on above: Performed By: #### C BC #### [facility] [address] [place] [address] Dr. Suraj Choe LYMPH # 2.1 103/ul Normal 1.2-3.8 [facility] Comment on above: Performed By: #### C BC #### [facility] [address] [place] [address] Dr. Suraj Choe Lymphocytes/100 WBC (Bld) 50.7 % Normal 20.5-60.0 [facility] Comment on above: Performed By: #### C BC #### [facility] [address] [place] [address] Dr. Suraj Choe MANUAL DIFF REQ NO Normal [facility] Comment on above: Performed By: #### C BC #### [facility] [address] [place] [address] Dr. Suraj Choe MCH (RBC) [Entitic mass] 27.6 pg Normal 26.7-34.0 [facility] Comment on above: Performed By: #### C BC #### [facility] [address] [place] [address] Dr. Suraj Choe MCHC (RBC) [Mass/Vol] 31.9 g/dL Normal 29.9-35.2 [facility] Comment on above: Performed By: #### C BC #### [facility] [address] [place] [address] Dr. Suraj Choe MCV (RBC) [Entitic vol] 86.5 fL Normal 81.0-99.0 [facility] Comment on above: Performed By: #### C BC #### [facility] [address] [place] [address] Dr. Suraj Cohe MONO # 0.3 103/ul Normal 0.3-0.8 [facility] Comment on above: Performed By: #### C BC #### [facility] [address] [place] [address] Dr. Suraj Choe Monocytes/100 WBC (Bld) 5.9 % Normal 1.7-12.0 [facility] Comment on above: Performed By: #### C BC #### [facility] [address] [place] [address] Dr. Suraj Choe NEUT # 1.7 103/ul Normal 1.4-6.5 [facility] Comment on above: Performed By: #### C BC #### [facility] [address] [address] [address] Suraj Choe Neutrophils/100 WBC (Bld) 41.1 % Critically low 43.0-75.0 [facility] Comment on above: Performed By: #### C BC #### [facility] [address] [address] [address] Suraj Choe Platelet mean volume (Bld) [Entitic vol] 9.6 fL Normal 9.5-13.5 [facility] Comment on above: Performed By: #### C BC #### [facility] [address] [address] [address] Suraj Choe PLT 309 103/ul Normal 150-450 [facility] Comment on above: Performed By: #### C BC #### [facility] [address] [address] [address] Suraj Choe RBC 4.46 106/ul Normal 4.20-5.40 [facility] Comment on above: Performed By: #### C BC #### [facility] [address] [address] [address] Suraj Choe WBC 4.2 103/ul Normal 4.0-11.0 [facility] Comment on above: Performed By: #### C BC #### [facility] [address] [place] [address] ABD/PELVIS WO CONon [...] SAIRA VAUGHAN Date: 2022-01-31 17:03 Normal [facility] CT HEAD WO CONon 01-31-2022 CT [...] SAIRA VAUGHAN Date: 2022-01-31 17:06 Normal [facility] CULTURE URINEon 01-31-2022 CULTURE URINE Culture Observations : MODERATE GROWTH OF MIXED GENITAL JEAN PAUL. NO POTENTIAL PATHOGENS SEEN. Normal [facility] Comment on above: Performed By: #### U RCX ####[facility] [address] [address]Dr. Rachelshy Choe [facility]19 PCR [facility] 01-15 SARS-CoV-2 (COVID-19) RNA JERRY+probe Ql (Unsp spec) Not detected Normal NOT DETECTED [facility] Comment on above: Result Comment: This test is not yet approved or cleared by the [place] FDA. When there are no FDA-approved or cleared tests available, and other criteria are met, FDA can make tests available under an emergency access mechanism called an Emergency Use Authorization (EUA). The EUA for this test is supported by the Preparation Supervisor of Health and Human Service's (HHS's) declaration [...] consistent with SARS-CoV-2. Performed By: #### C [facility] #### [facility] [address] [address] [address] Suraj Choe ER URINE PROFILEon 2 Bilirubin Ql (U) Negative Normal NEGATIVE The [facility] Comment on above: Performed By: #### GENA AGUILA ####[facility] [address] [address]Dr. Suraj Choe Clarity (U) SL CLOUDY Abnormal CLEAR [facility] Comment on above: Performed By: #### GENA AGUILA ####[facility] [address] [address]Dr. Suraj Choe Color (U) LT. YELLOW Normal YELLOW [facility] Comment on above: Performed By: #### PAN AGUILARO ####[facility] [address] [address]Dr. Suraj RIVEROAHD A micrscopic examination will be performed if indicated. Normal [facility] Comment on above: Performed By: #### PAN AGUILARO ####[facility] [address] [address]Dr. Suraj Choe Glucose Ql (U) Negative Normal NEGATIVE [facility] Comment on above: Performed By: #### PAN AGUILARO ####[facility] [address] [address]Dr. Suraj Choe Hemoglobin Ql (U) MODERATE Abnormal NEGATIVE [facility] Comment on above: Performed By: #### PAN AGUILARO ####[facility] [address] [address]Dr. Suraj Choe Ketones Ql (U) Negative Normal NEGATIVE [facility] Comment on above: Performed By: #### Flori MONTANEZ UMICRO ####[facility] [address] [address]Dr. Suraj Choe LEUKOCYTES MODERATE Abnormal NEGATIVE [facility] Comment on above: Performed By: #### Flori MONTANEZ UMICRO ####[facility] [address] [address]Dr. Suraj Choe Nitrite Ql (U) Negative Normal NEGATIVE [facility] Comment on above: Performed By: #### Flori MONTANEZ UMICRO ####[facility] [address] [address]Dr. Suraj Choe pH (U) 6.0 [pH] Normal 5-9 [facility] Comment on above: Performed By: #### Flori MONTANEZ UMICRO ####[facility] [address] [place], [place] [address]Dr. Suraj Choe SPEC GRAVITY 1.015 Normal 1.005-<=1.025 [facility] Comment on above: Performed By: #### Flori MONTANEZ UMICRO ####[facility] [address] [place], [place] [address]Dr. Suraj Choe UA PROTEIN Negative Normal NEGATIVE/ TRACE The [facility] Comment on above: Performed By: #### Flori MONTANEZ UMICRO ####[facility] [address] [address]Dr. Suraj Choe UR MICRO IND INDICATED Normal [facility] Comment on above: Performed By: #### Flori MONTANEZ UMICRO ####[facility] [address] [address]Dr. Suraj Choe Urobilinogen Qn (U) 1.0 {Dhiraj'U}/dL Normal 0.2 - 1. 0 [facility] Comment on above: Performed By: #### Flori MONTANEZ UMICRO ####[facility] [address] [address]Dr. Suraj Choe INFLUENZA A AND B AGon 01-31 INFLUANEGH SEE BELOW Normal [facility] Comment on above: Result Comment: Nega tive for Flu A protein angiten. Infection due to Flu A cannot be ruled out. Flu A angiten in the sample may be below the detection limit of the test. Performed By: #### I NFLUAB ####[facility] [address] [place], [place] [address]Dr. Suraj hCoe INFLUBNEGH SEE BELOW Normal [facility] Comment on above: Result Comment: Nega tive for Flu B protein antigen. Infection due to Flu B cannot be ruled out. Flu B antigen in the sample may be below the detection limit of the test. Performed By: #### I NFLUAB ####[facility] [address] [place], [place] [address]Dr. Suraj Choe INFLUENZA A AG Negative Normal NEGATIVE SEE COMMENT [facility] Comment on above: Performed By: #### I NFLUAB ####[facility] [address] [place], [place] [address]Dr. Suraj Choe INFLUENZA B AG Negative Normal NEGATIVE SEE COMMENT [facility] Comment on above: Performed By: #### I NFLUAB ####[facility] [address] [place], [place] [address]DrGemma Choe INTERNAL CONTROLS Within Normal Limits Normal Wi thin Normal Limits [facility] Comment on above: Performed By: #### I NFLUAB ####[facility] [address] [place], [place] [address]DrGemma Choe LIPASEon 01-31-2022 Lipase [Catalytic activity/Vol] 142.0 U/L Normal 73.0-393.0 [facility] Comment on above: Performed By: #### C MADM, LIPA, CMP #### [facility] [address] [place] [address] Dr. Suraj Choe PROF 14(COMP METB)on Albumin [Mass/Vol] 3.7 g/dL Normal 3.4-5.[address] [facility] Comment on above: Performed By: #### C MADM, LIPA, CMP #### [facility] [address] [place] [address] Dr. Suraj Choe Albumin/Globulin [Mass ratio] 1.0 {ratio} Normal [facility] Comment on above: Performed By: #### C BERONICA BAKERA, CMP #### [facility] [address] [address] [address] Suraj Choe ALP [Catalytic activity/Vol] 78 U/L Normal 46-116 [facility] Comment on above: Performed By: #### C SAMUEL LIPA, CMP #### [facility] [address] [address] [address] Suraj Choe ALT [Catalytic activity/Vol] 12 U/L Critically low 14-59 [facility] Comment on above: Performed By: #### C BERONICA BAKERA, CMP #### [facility] [facility] [address] [place] [address] Dr. Suraj Choe Anion gap [Moles/Vol] 6.3 mmol/L Normal [facility] Comment on above: Performed By: #### C SAMUEL LIPA, CMP #### [facility] [address] [place] [address] Dr. Suraj Choe AST [Catalytic activity/Vol] 23 U/L Normal 15-37 [facility] Comment on above: Performed By: #### C BERONICA BAKERA, CMP #### [facility] [address] [place] [address] Dr. Suraj Choe Bilirubin [Mass/Vol] 0.5 mg/dL Normal 0.2-1.0 [facility] Comment on above: Performed By: #### C SAMUEL LIPA, CMP #### [facility] [address] [place] [address] Dr. Suraj Choe Calcium [Mass/Vol] 9.7 mg/dL Normal 8.5-10.1 [facility] Comment on above: Performed By: #### C SAMUEL LIPA, CMP #### [facility] [address] [place] [address] Dr. Suraj Choe Chloride [Moles/Vol] 106 mmol/L Normal 98-107 [facility] Comment on above: Performed By: #### C SAMUEL LIPA, CMP #### [facility] [address] [address] [address] Suraj Choe CO2 [Moles/Vol] 30.9 mmol/L Normal 21.0-32.0 [facility] Comment on above: Performed By: #### C MADM, LIPA, CMP #### [facility] [address] [address] [address] Suraj Choe Creatinine [Mass/Vol] 0.71 mg/dL Normal 0.55-1.02 [facility] Comment on above: Performed By: #### C MADM, LIPA, CMP #### [facility] [address] [address] [address] Suraj Choe EGFR-AF VIETNAMESE >60 Normal >=60 [facility] Comment on above: Performed By: #### C MADM, LIPA, CMP #### [facility] [address] [address] [address] Suraj Choe EGFR-NON AF VIETNAMESE >60 Normal >=60 [facility] Comment on above: Performed By: #### C MADM, LIPA, CMP #### [facility] [address] [address] [address] Suraj Choe Globulin (S) [Mass/Vol] 3.7 g/dL Normal [facility] Comment on above: Performed By: #### C MADM, LIPA, CMP #### [facility] [address] [address] [address] Suraj Choe Glucose [Mass/Vol] 92 mg/dL Normal 74-[address] [facility] Comment on above: Performed By: #### C MADM, LIPA, CMP #### [facility] [address] [address] [address] Suraj Choe Potassium [Moles/Vol] 4.2 mmol/L Normal 3.5-5.1 [facility] Comment on above: Performed By: #### C MADM, LIPA, CMP #### [facility] [address] [address] [address] Suraj Choe Protein [Mass/Vol] 7.4 g/dL Normal 6.4-8.[address] [facility] Comment on above: Performed By: #### C DANIEL BAKER, CMP #### [facility] [address] [address] [address] Suraj Choe Sodium [Moles/Vol] 139 mmol/L Normal 136-145 [facility] Comment on above: Performed By: #### C DANIEL BAKER, CMP #### [facility] [address] [address] [address] Suraj Choe Urea nitrogen [Mass/Vol] 20.0 mg/dL Critically high 7.0-18.0 [facility] Comment on above: Performed By: #### C DANIEL BAKER, CMP #### [facility] [address] [address] [address] Suraj Choe Urea nitrogen/Creatinine [Mass ratio] 28.2 mg/mg Normal [facility] Comment on above: Performed By: #### C DANIEL BAKER, CMP #### [facility] [address] [address] [address] Suraj Choe PROTIMEon 01-31-2022 INR Coag (PPP) [Relative time] 1.10 {INR} Normal [facility] Comment on above: Performed By: #### P TT, PT ####[facility] [address] [address]DrGemma Choe INR GUIDELINES SEE BELOW Normal [facility] Comment on above: Result Comment: ANANYA RED INR: 2.0 - 3.0 CONDITIONS NOT LISTED BELOW 2.5 - 3.5 FOR PROSTHETIC HEART VALVE REPLACEMENT 2.5 - 3.5 RECURRENT THROMBOSIS Performed By: #### P TT, PT ####[facility] [address] [address]Dr. Suraj Choe PT Coag (PPP) [Time] 11.8 s Critically high 9.0-11.6 [facility] Comment on above: Performed By: #### P TT, PT ####[facility] [address] [address]Dr. Suraj Choe PTTon 12-17-2022 aPTT Coag (Bld) [Time] 26.5 s Normal 22.3-36.2 [facility] Comment on above: Performed By: #### P TT, PT ####[facility] [address] [place], [place] [address]Dr. Suraj Choe URINE MICROSCOPIC ONLYon BACTERIA SMALL Abnormal NONE SEEN [facility] Comment on above: Performed By: #### Flori MONTANEZ UMICRO ####[facility] [address] [place], [place] [address]Dr. Suraj Choe Bacteria identified Cx Nom (U) INDICATED Normal [facility] Comment on above: Performed By: #### Flori MONTANEZ UMICRO ####[facility] [address] [place], [place] [address]Dr. Suraj Choe CAST NONE SEEN Normal NONE SEEN [facility] Comment on above: Performed By: #### Flori MONTANEZ UMICRO ####[facility] [address] [place], [place] [address]Dr. Suraj Choe Crystals LM Nom (Urine sed) NONE SEEN Normal NONE SEEN [facility] Comment on above: Performed By: #### Flori MONTANEZ UMICRO ####[facility] [address] [place], [place] [address]Dr. Suraj Choe Epithelial cells LM Ql (Urine sed) MODERATE Abnormal NONE SEEN /RARE [facility] Comment on above: Performed By: #### Flori MONTANEZ UMICRO ####[facility] [address] [place], [place] [address]Dr. Suraj Choe MUCOUS NONE SEEN Normal NONE SEEN [facility] Comment on above: Performed By: #### Flori MONTANEZ UMICRO ####[facility] [address] [place], [place] [address]Dr. Suraj Choe RBC 0-2 Normal 0-2 [facility] Comment on above: Performed By: #### Flori MONTANEZ UMICRO ####[facility] [address] [place], [place] [address]Dr. Suraj Choe WBC 2-5 Abnormal NONE SEEN [facility] Comment on above: Performed By: #### Flori GENA MONTANEZ ####[facility] [address] [place], [place] [address]XcDr. Suraj Choe XR CHEST 1 Von 01-31-2022 [...] SANIYA VICTOR Date: 2022-01-31 16:59 Normal [facility] CBC AUTO DIFFon 08-22-2021 BASO # 0.0 103/ul Normal 0.0-0.1 [facility] Comment on above: Performed By: #### C BC #### [facility] [address] [address] [address] Suraj Choe Basophils/100 WBC (Bld) 0.9 % Normal 0.2-2.0 [facility] Comment on above: Performed By: #### C BC #### [facility] [address] [address] [address] Suraj Choe EO # 0.1 103/ul Normal 0.0-0.7 [facility] Comment on above: Performed By: #### C BC #### [facility] [address] [address] [address] Suraj Choe Eosinophils/100 WBC (Bld) 1.3 % Normal 0.9-7.0 [facility] Comment on above: Performed By: #### C BC #### [facility] [address] [address] [address] Suraj Choe Erythrocyte distribution width (RBC) [Ratio] 13.5 % Normal 11.0-15.0 [facility] Comment on above: Performed By: #### C BC #### [facility] [address] [address] [address] Suraj Choe Hematocrit (Bld) [Volume fraction] 40.5 % Normal 36.0-48.0 [facility] Comment on above: Performed By: #### C BC #### [facility] [address] [place] [address] Dr. Suraj Choe Hemoglobin (Bld) [Mass/Vol] 12.7 g/dL Normal 12.0-16.0 [facility] Comment on above: Performed By: #### C BC #### [facility] [address] [place] [address] Dr. Suraj Choe IG # 0.01 10e3/ul Normal 0.00-0.03 [facility] Comment on above: Performed By: #### C BC #### [facility] [address] [place] [address] Dr. Suraj Choe IG % 0.2 % Normal 0.0-0.5 [facility] Comment on above: Performed By: #### C BC #### [facility] [address] [place] [address] Dr. Suraj Choe LYMPH # 1.9 103/ul Normal 1.2-3.8 [facility] Comment on above: Performed By: #### C BC #### [facility] [address] [place] [address] Dr. Suraj Choe Lymphocytes/100 WBC (Bld) 42.8 % Normal 20.5-60.0 [facility] Comment on above: Performed By: #### C BC #### [facility] [address] [place] [address] Dr. Suraj Choe MANUAL DIFF REQ NO Normal [facility] Comment on above: Performed By: #### C BC #### [facility] [address] [place] [address] Dr. Suraj Choe MCH (RBC) [Entitic mass] 27.9 pg Normal 26.7-34.0 [facility] Comment on above: Performed By: #### C BC #### [facility] [address] [place] [address] Dr. Suraj Choe MCHC (RBC) [Mass/Vol] 31.4 g/dL Normal 29.9-35.2 [facility] Comment on above: Performed By: #### C BC #### [facility] [address] [place] [address] Dr. Suraj Choe MCV (RBC) [Entitic vol] 88.8 fL Normal 81.0-99.0 [facility] Comment on above: Performed By: #### C BC #### [facility] [address] [place] [address] Dr. Suraj Choe MONO # 0.3 103/ul Normal 0.3-0.8 [facility] Comment on above: Performed By: #### C BC #### [facility] [address] [place] [address] Dr. Suraj Choe Monocytes/100 WBC (Bld) 7.1 % Normal 1.7-12.0 [facility] Comment on above: Performed By: #### C BC #### [facility] [address] [place] [address] Dr. Suraj Choe NEUT # 2.2 103/ul Normal 1.4-6.5 [facility] Comment on above: Performed By: #### C BC #### [facility] [address] [place] [address] Dr. Suraj Choe Neutrophils/100 WBC (Bld) 47.7 % Normal 43.0-75.0 [facility] Comment on above: Performed By: #### C BC #### [facility] [address] [place] [address] Dr. Suraj Choe Platelet mean volume (Bld) [Entitic vol] 9.4 fL Critically low 9.5-13.5 [facility] Comment on above: Performed By: #### C BC #### [facility] [address] [place] [address] Dr. Suraj Choe PLT 279 103/ul Normal 150-450 [facility] Comment on above: Performed By: #### C BC #### [facility] [address] [place] [address] Dr. Suraj Choe RBC 4.56 106/ul Normal 4.20-5.40 [facility] Comment on above: Performed By: #### C BC #### [facility] [address] [place] [address] Dr. Suraj Choe WBC 4.5 103/ul Normal 4.0-11.0 [facility] Comment on above: Performed By: #### C BC #### [facility] [address] [address] [address] Suraj Choe PROF CHEM 8 (BAS METB)on Anion gap [Moles/Vol] 10.2 mmol/L Normal [facility] Comment on above: Performed By: #### B MP ####[facility] [address] [address]DrGemma Choe Calcium [Mass/Vol] 9.3 mg/dL Normal 8.5-10.1 [facility] Comment on above: Performed By: #### B MP ####[facility] [address] [address]Dr. Suraj Choe Chloride [Moles/Vol] 106 mmol/L Normal 98-107 [facility] Comment on above: Performed By: #### B MP ####[facility] [address] [address]Dr. Suraj Choe CO2 [Moles/Vol] 28.7 mmol/L Normal 21.0-32.0 The [facility] Comment on above: Performed By: #### B MP ####[facility] [address] [address]DrGemma Choe Creatinine [Mass/Vol] 0.76 mg/dL Normal 0.55-1.02 [facility] Comment on above: Performed By: #### B MP ####[facility] [address] [address]DrGemma Choe EGFR-AF VIETNAMESE >60 Normal >=60 The [facility] Comment on above: Performed By: #### B MP ####[facility] [address] [address]DrGemma Choe EGFR-NON AF VIETNAMESE >60 Normal >=60 [facility] Comment on above: Performed By: #### B MP ####[facility] [address] [address]DrGemma Choe Glucose [Mass/Vol] 98 mg/dL Normal 74-[address] [facility] Comment on above: Performed By: #### B MP ####[facility] [address] [address]Dr. Suraj Choe Potassium [Moles/Vol] 3.9 mmol/L Normal 3.5-5.1 [facility] Comment on above: Performed By: #### B MP ####[facility] [address] [address]Dr. Suraj Choe Sodium [Moles/Vol] 141 mmol/L Normal 136-[address] [facility] Comment on above: Performed By: #### B MP ####[facility] [address] [address]Dr. Suraj Choe Urea nitrogen [Mass/Vol] 22.0 mg/dL Critically high 7.0-18.0 [facility] Comment on above: Performed By: #### B MP ####[facility] [address] [address]Dr. Suraj Choe Urea nitrogen/Creatinine [Mass ratio] 28.9 mg/mg Normal [facility] Comment on above: Performed By: #### B MP ####[facility] [address] [address]Dr. Suraj Choe XR KUB 1 VIEWon 08-22-2021 [...] by: PINKY GARCIA Date: 2021-08-22 16:41 Normal [facility] Encounters Encounter Date Encounter Type Care Provider Facility Start: 09-07-2023 End: 09-07-2023 Emergency department patient visit PAIGE ORDONEZ [facility] Start: 06-15-2022 End: 06-16-[address] TYRESE PATEL . Facility: Start: 03-07-2022 End: 01-21-[address] PAIGE ORDONEZ . Facility: Start: 02-23-2022 End: 02-24-[address] PAIGE ORDONEZ . Facility:[facility] Start: 01-31-2022 End: 01-31-[address] PAIGE ORDONEZ . Facility:[facility] Start: 08-22-2021 End: 08-22-[address] PAIGE ORDONEZ . Facility: Payers Date Payer Category Payer Medicare [id number] 1960 Medicare [id number] 1945 Unknown [id number] 2.16.84 [id number] 1945 Unknown [id number] 2.16.84 [id number] 1945 Unknown [id number] 2.16.84 [id number] 1945 Unknown [id number] 2.16.84 [id number] 1945 Unknown [id number] 2.16.84 [id number] 1945 Unknown [id number] 2.16.8 [id number] Summary Purpose Family History No Family History Records FoundNo Family History Records Found Advance Directives No Advanced Directives Records FoundNo Advanced Directives Records Found Additional Source Comments INFORMATION SOURCE (unrecogn ized section and content) DATE CREATED AUTHOR 06/20/2022 [facility] DATE CREATED AUTHOR AUTHOR'S ORGANIZ ATION 09/10/2023 [facility] FOR RECORDS PERTAINING TO PATIENTS WHO [...] BE BASED ON THE PRIMARY CLINICAL RECORDS. [facility], [facility]. provides no warranty or guarantee of the accuracy or completeness of information in this document.
== END 2024-02-28 10:52 | disposition home or self-care (01) ==
LOC: MAMMO 10:52
PROVIDERS: PCP Family Medicine; Visit Provider Family Medicine
DX: Z12.31 Encounter for screening mammogram for malignant neoplasm of breast (principal)
CPT/HCPCS: 77063; 77067

== ENCOUNTER 2024-04-24 09:32 | Emergency (ER) | payer MEDICARE, SELFPAY ==
[2024-04-24 09:38] VITALS: BP 178/84; PULSE 91; TEMP 36.9; O2SAT 100; BMI 26.6
--- NOTE | 2024-04-24 09:42 | ED_ITS ---
HPI HPI - General Adult General Chief complaint: Extremity Injury, Lower Stated complaint: LOWER EXTREMITY LEG PAIN Time Seen by Provider: 04/24/24 09:35 History of Present Illness HPI narrative: 78-year-old female presents to the emergency department for a chief complaint of cramps in her thighs. She has been having this for weeks and it happens mostly in the mornings and it last for 20 to 30 minutes. It does not happen in her calves. No injury and she has not seen her family doctor for this. Symptoms are intermittent. Related Data Home Medications ?Medication ?Instructions ?Recorded ?Confirmed No Known Home Medications 12/21/23 12/21/23 Allergies Allergy/AdvReac Type Severity Reaction Status Date / Time No Known Drug Allergies Allergy Verified 04/24/24 09:44 Opioid HPI Opioid Management Most Recent Opioid Data: Last Pain Scale 5 07/19/23 13:47 07/19/23 Review of Systems ROS Narrative A ten point review of systems is negative except as noted above. PFSH PFSH Medical History (Updated 04/24/24 @ 10:24 by Jaden Watkins MD) GERD (gastroesophageal reflux disease) ?K21.9 - Gastro-esophageal reflux disease without esophagitis (ICD-10) High cholesterol ?E78.00 - Pure hypercholesterolemia, unspecified (ICD-10) Chest pain ?R07.9 - Chest pain, unspecified (ICD-10) Surgical History (Updated 01/13/23 @ 15:37 by Suzie Sandhu) H/O: hysterectomy ?Z90.710 - Acquired absence of both cervix and uterus (ICD-10) Family History (Updated 01/13/23 @ 15:40 by Suzie Sandhu) Father Family history of myocardial infarction Mother Family history of stroke Social History (Updated 01/13/23 @ 15:41 by Suzie Sandhu) Within the past year, how often did you have a drink containing alcohol: never Score interpretation: A score less than 3 is consistent with normal alcohol consumption. Smoking status: Never smoker Non-prescribed substance use: denies use Previous occupational history: retired Highest level of school completed/degree received: 11th grade Are you now , , , , never or living with a partner: Little interest or pleasure in doing things: not at all Feeling down, depressed, or hopeless: not at all Feel stressed/tense/nervous/anxious/difficulty sleeping: only a little Due to disability, difficulty making decisions: No Do you think of yourself as: straight/heterosexual Exam Narrative Exam Narrative: Nurses note and vital signs reviewed and patient is not hypoxic. General: The patient appears well and in no apparent distress. Patient is resting comfortably on cart. Skin: Warm, dry, no pallor noted. There is no rash noted. Head: Normocephalic, atraumatic Eye: Normal conjunctiva, no drainage Ears, Nose, Mouth, and Throat: oral mucosa is moist. Nares patent. Cardiovascular: Regular Rate and Rhythm Respiratory: Patient is in no distress, no accessory muscle use, lungs are clear to auscultation, no wheezing, rales or rhonchi Back: non-tender GI: Soft and nontender Musculoskeletal: Her legs are examined. There is no bruise rash or swelling. No calf tenderness. There is no mass in her thighs. Neurological: A&O, normal speech Psychiatric: Cooperative Constitutional Vital Signs, click to edit/add: Last Vital Signs Temp 98.4 F 04/24/24 09:38 Pulse 91 H 04/24/24 09:38 Resp 16 04/24/24 09:38 BP 178/84 H 04/24/24 09:38 Pulse Ox 100 04/24/24 09:38 Course Vital Signs Vital signs: Vital Signs Temperature 98.4 F 04/24/24 09:38 Pulse Rate 91 H 04/24/24 09:38 Respiratory Rate 16 04/24/24 09:38 Blood Pressure 178/84 H 04/24/24 09:38 Pulse Oximetry 100 04/24/24 09:38 Temperature 98.4 F 04/24/24 09:38 Pulse Rate 91 H 04/24/24 09:38 Respiratory Rate 16 04/24/24 09:38 Blood Pressure 178/84 H 04/24/24 09:38 Pulse Oximetry 100 04/24/24 09:38 Medical Decision Making [facility] Narrative Medical decision making narrative: Blood work is normal including potassium, calcium, and magnesium. She was advised follow-up with her PCP. I have no clinical suspicion of DVT. Treatment diagnosis and follow-up were discussed with the patient. Differential Diagnosis Differential Diagnosis: Leg cramps, electrolyte imbalance Lab Data Lab results reviewed: Yes I reviewed the patient's lab results Labs: Lab Results 04/24/24 Range/Units 09:50 WBC 4.4 (4.0-11.0) 10^3/uL RBC 4.42 (4.20-5.40) 10^6/uL Hgb 12.7 (12.0-16.0) g/dL Hct 39.6 (36.0-48.0) % MCV 89.6 (81.0-99.0) fL MCH 28.7 (26.7-34.0) pg MCHC 32.1 (29.9-35.2) g/dL RDW 14.1 (11.0-15.0) % Plt Count 300 (150-450) 10^3/uL MPV 9.1 L (9.5-13.5) fL Neut % (Auto) 53.9 (43.0-75.0) % Lymph % (Auto) 38.1 (20.5-60.0) % [place] % (Auto) 6.2 (1.7-12.0) % Eos % (Auto) 1.1 (0.9-7.0) % Baso % (Auto) 0.7 (0.2-2.0) % Neut # (Auto) 2.4 (1.4-6.5) 10^3/uL Lymph # (Auto) 1.7 (1.2-3.8) 10^3/uL [place] # (Auto) 0.3 (0.3-0.8) 10^3/uL Eos # (Auto) 0.1 (0.0-0.7) 10^3/uL Baso # (Auto) 0.0 (0.0-0.1) 10^3/uL Abs Immat Gran (auto) 0.00 (0.00-0.03) 10^3/uL Imm/Tot Granulo (auto) 0.0 (0.0-0.5) % Sodium 142 (136-145) mmol/L Potassium 3.5 (3.5-5.1) mmol/L Chloride 107 (98-107) mmol/L Carbon Dioxide 27.0 (21.0-32.0) mmol/L Anion Gap 11.5 BUN 13.0 (7.0-18.0) mg/dL Creatinine 0.73 (0.55-1.02) mg/dL Est GFR ( Amer) >60 (>=60 mL/min/1.73m^2) Est GFR (Non-Af Amer) >60 (>=60 mL/min/1.73m^2) BUN/Creatinine Ratio 17.8 Glucose 87 (74-106) mg/dL Calcium 9.1 (8.5-10.1) mg/dL Magnesium 1.8 (1.8-2.4) mg/dL Discharge Plan Discharge Chief Complaint: Extremity Injury, Lower Clinical Impression: Bilateral leg cramps Patient Disposition: Home, Self-Care Time of Disposition Decision: 10:23 Condition: Good Mode of Transportation: Private Vehicle Prescriptions / Home Meds: No Action No Known Home Medications Print Language: Sammarinese Instructions: Leg Cramps (ED) Additional Instructions: Follow-up with your PCP. Referrals: Cristian Hung MD [Primary Care Provider] - 1 week
[2024-04-24 10:01] LABS: Basophils Percent Auto 0.7 % (0.2-2.0); Eosinophils Absolute Auto 0.1 10^3/uL (0.0-0.7); Eosinophils Percent Auto 1.1 % (0.9-7.0); Hematocrit 39.6 % (36.0-48.0); Hemoglobin 12.7 g/dL (12.0-16.0); Lymphocytes Absolute Auto 1.7 10^3/uL (1.2-3.8); Lymphocytes Percent Auto 38.1 % (20.5-60.0); Mean Corpuscular HGB Conc 32.1 g/dL (29.9-35.2); Mean Corpuscular Hemoglobin 28.7 pg (26.7-34.0); Mean Corpuscular Volume 89.6 fL (81.0-99.0); Mean Platelet Volume 9.1 fL (9.5-13.5); Monocytes Absolute Auto 0.3 10^3/uL (0.3-0.8); Monocytes Percent Auto 6.2 % (1.7-12.0); Neutrophils Absolute Auto 2.4 10^3/uL (1.4-6.5); Neutrophils Percent Auto 53.9 % (43.0-75.0); Platelet Count 300 10^3/uL (150-450); Red Blood Count 4.42 10^6/uL (4.20-5.40); Red Cell Distribution Width 14.1 % (11.0-15.0); White Blood Count 4.4 10^3/uL (4.0-11.0)
[2024-04-24 10:11] LABS: Anion Gap 11.5; BUN Creatinine Ratio 17.8; Calcium 9.1 mg/dL (8.5-10.1); Chloride 107 mmol/L (98-107); Estimated GFR (African America >60 (>=60 mL/min/1.73m^2); Estimated GFR (Non-African Ame >60 (>=60 mL/min/1.73m^2); Glucose 87 mg/dL (74-106); Magnesium 1.8 mg/dL (1.8-2.4); Potassium 3.5 mmol/L (3.5-5.1); Sodium 142 mmol/L (136-145)
[2024-04-24] MEDS: IBUPROFEN 400 MG TABLET 800 MG PO (10:57)
== END 2024-04-24 11:01 | disposition home or self-care (01) ==
PROVIDERS: Emergency Provider Emergency Medicine; PCP Family Medicine
DX: R25.2 Cramp and spasm (principal); Z90.710 Acquired absence of both cervix and uterus
CPT/HCPCS: 36415; 80048; 83735; 85025; 99283

== ENCOUNTER 2024-08-02 11:43 | Emergency (ER) | payer MEDICARE, SELFPAY ==
--- OUTSIDE RECORDS SUMMARY | 2023-10-26 09:40 | XMS_ITS ---
Author Organization [facility] in [place] Address [address] [place] [address] Care Team Providers Care Concert Manager Name Role Phone Elvi Patel Primary Care Provider Medications Medication SIG (Take, Route, Frequency, Duration) Notes Start Date End Date Status Dicyclomine HCl 10 MG 1 capsule Orally d aily prn for 30 days 04/16/2023 Unknown Amoxicillin 875 MG 1 tablet Orally Twic e a day for 10 days 01/05/2023 Unknown Omeprazole 40 MG TAKE ONE CAPSULE BY MOUTH DAILY for 90 Unknown Meloxicam 7.5 MG 1 tablet Orally Once a day Unknown Simvastatin 40 MG 1 tablet in the evening Orally Once a day for 30 days Unknown Prochlorperazine Maleate 10 MG 1 tablet as needed Orally daily prn for 10 days 10/26/2023 Active Acetaminophen-Codeine 300-30 MG Oral for 2 Days Unknown Dicyclomine HCl 10 MG Oral for 30 Days Unknown Encounters Encounter Location Date Provider Diagnosis [facility] [address] [place] [address] 10/26/2023 Elvi Patel Plan Of Treatment Medication Medication Name Sig Start Date Stop Date Notes Prochlorperazine Maleate 10 MG 1 tablet as needed Orally daily prn for 10 days 10/26/2023 Progress Notes * Alysha MORTON CDOB:[birth year] (78 yo F)Acc No.[id number]:10/26/2023 Patient: Brian Alysha MORALES :1945 A ge:78 Y S ex:Female Address:[address] [place] [id number] * Refills Start Prochlorperazine Maleate Tablet, 10 MG, Orally, 10, 1 tablet as needed, daily prn, 10 days, Refills=0 Subjective: * Chief Complaints: * * Medical History: * Surgical History: * Hospitalization/Major Diagno stic Procedure: * Medications: U nknownAcetaminophen-Codeine 300-30 MG Tablet Oral Amoxicillin 875 MG Tablet 1 tablet Orally Twice a day Dicyclomine HCl 10 MG Capsule Oral Dicyclomine HCl 10 MG Capsule 1 capsule Orally daily prn Meloxicam 7.5 MG Tablet 1 tablet Orally Once a day Omeprazole 40 MG Capsule Delayed Release TAKE ONE CAPSULE BY MOUTH DAILY Simvastatin 40 MG Tablet 1 tablet in the evening Orally Once a day Unknown Acetaminophen- Codeine 300-30 MG Tablet Oral Unknown Amoxicillin 875 MG Tablet 1 tablet Orally Twice a day Unknown Dicyclomine HCl 10 MG Capsule Oral Unknown Dicyclomine HCl 10 MG Capsule 1 capsule Orally daily prn Unknown Meloxicam 7.5 MG Tablet 1 tablet Orally Once a day Unknown Omeprazole 40 MG Capsule Delayed Release TAKE ONE CAPSULE BY MOUTH DAILY Unknown Simvastatin 40 MG Tablet 1 tablet in the evening Orally Once a day Objective: * Vitals: * Physical Examination: Assessment: Plan: * Treatment: * Procedure Codes: * true * Date: Generated for Nieves Blake/Ty on: 08/02/2024 11:56 AM EDT
--- OUTSIDE RECORDS SUMMARY | 2024-02-28 16:02 | XMS_ITS ---
Author Organization [facility] in [place] Address [address] [place] [address] Care Team Providers Care Electrical Contacts Adjuster Name Role Phone Elvi Patel Primary Care Provider [phone] Celso Hung [phone] REASON FOR VISIT Review mamm Encounters Encounter Location Date Provider Diagnosis [facility] [address] [place] [address] 02/28/2024 Celso Hung Plan Of Treatment No Information Progress Notes * Alysha MORTON CDOB:[birth year] (78 yo F)Acc No.[id number]:02/28/2024 Patient: Brian Alysha MORALES :1945 A ge:78 Y S ex:Female Address:[address] [place] [address] [address] [address] * true * Date: Generated for Shannani ng/Faestefaniag/eTransmitting on: 0 08/02/2024 11:56 AM EDT
--- OUTSIDE RECORDS SUMMARY | 2024-05-12 09:30 | XMS_ITS ---
Author Organization [facility] [place] Address [address] [place] [address] Care Team Providers Care Criminal Records Technician Name Role Phone AmandaElvi joseph Primary Care Provider Celso Hung Unavailable [phone] Allergies No Known Allergies REASON FOR VISIT headache up the back of the head- has been to ER, [facility]O lasting several weeks Medications Medication SIG (Take, Route, Frequency, Duration) Notes Start Date End Date Status Meloxicam 7.5 MG 1 tablet Orally Once a day for 30 days Active Dicyclomine HCl 10 MG 1 capsule Orally d aily prn for 30 days 04/16/2023 Not-Taking Omeprazole 40 MG TAKE ONE CAPSULE BY MOUTH DAILY for 90 Not-Taking Simvastatin 40 MG 1 tablet in the even ing Orally Once a day for 30 days Not-Taking Social History Tobacco Use: Social History Observation Description Date Details (start date - stop date) Never Smoker NA - NA Tobacco Use/Smoking Question Answer Notes Patient is a nonsmoker AUDIT-C (Standard) Question Answer Notes Did you have a drink containing alcohol in the p ast year? No Points 0 Interpretation Negative Problems Problem Type SNOMED Code ICD Code Onset Dates Problem Status W/U Status Risk Notes Problem Headache (R51.9) Active confirmed Vital Signs Blood pressure systolic 140 mm Hg 05/13/19 25 Blood pressure diastolic 80 mm Hg 025 Height 64 in 05/12/2024 Weight 135 lbs 05/12/2024 BMI 23.17 kg/m2 05/12/2024 Encounters Encounter Location Date Provider Diagnosis [facility] [address] [place] [address] 05/12/2024 Celso Hung Headache R51.9 Assessments Encounter Date Diagnosis (ICD Code) Assessment Notes Treatment Notes Treatment Clinical Notes Section Notes 05/12/2024 Headache (ICD-10 - R51.9) Plan Of Treatment Medication Medication Name Sig Start Date Stop Date Notes Meloxicam 7.5 MG 1 tablet Orally Once a day for 30 days Pending Test Test Name Order Date MRI BRAIN WO CON 05/12/2024 Progress Notes * Contreras MORTONnestine CDOB:[birth year] (78 yo F)Acc No.[id number]:05/12/2024 Progress Note Patient: Alysha FLOEY C Provider: Madyson Hung ([facility])MD :1945 A ge:78 Y S ex:Female Date:05/12/2024 Address:[address] [place], [place] [id number] Pcp:Elvi Patel Check In:01:27 PM ESTCheck O ut:02:23 PM EST Subjective: * Chief Complaints: * h eadache up the back of the head- has been to ER, [facility] lasting several weeks * HPI: D epression Screening: PHQ-2 (2015 Edition) L ittle interest or pleasure in doing things??Not at all F eeling down, depressed, or hopeless? N ot at all T otal Score 0 * ROS: E ENT: hearing changes d enies. v isual changes d enies.?non-healing mouth sores d enies. s wollen glands or neck lumps d enies. h oarseness d enies. s ore throat d enies. d ifficulty swallowing d enies. n ose bleeds d enies. n inocencia congestion d enies. e ar ache d enies. e ar discharge?denies. r inging in ears d enies. l ight sensitivity d enies. e ye pain d enies. b lurring d enies. e ye irritation d enies. d ouble vision d enies.?vision loss d enies. G eneral/Constitutional: Sweats: D enies. F atigue d enies. S leep problems d enies. A norexia d enies. M alaise d enies. W eight loss d enies.?Fatigue or Weakness d enies. F ever or Chills d enies. C ardiovascular: Shortness of Breath w/lying flat d enies. L ightheadedness/dizziness d enies. C hest tightness/ heavy pressure d enies. S welling of legs, ankles, or feet d enies. W aking up with shortness of breath d enies. C hest pain denies. P alpitations d enies. W eight gain d enies. R espiratory: Chronic or frequent cough d enies. C oughing up blood?denies. D ifficulty breathing d enies. P roductive cough d enies. S noring?denies. S hortness of breath that awakens from sleep (PND) d enies. C hest pain d enies. S putum production d enies. W heezing d enies. M usculoskeletal: Joint pain d enies. J oint Fluid d enies. B ack pain d enies. K nee pain d enies. N yordan pain d enies. J oint Stiffness d enies. M uscle cramps d enies. W eakness of muscles d enies. A rthritis d enies. M uscle aches d enies. P ain in shoulder(s) d enies. S wollen joints d enies. * Active Problem List R06.00 Dyspnea Modified On:07/10/2022/U Status:confirmed E55.9 Vitamin D deficiency Modified On:07/10/2022/U Status:confirmed M54.9 Back pain Modified On:07/10/2022/U Status:confirmed M79.673 Foot pain Modified On:07/10/2022/U Status:confirmed K59.00 Constipation Modified On:07/10/2022/U Status:confirmed R01.1 Murmur Modified On:07/10/2022/U Status:confirmed M81.0 Osteoporosis Modified On:07/10/2022/U Status:confirmed R20.9 Paresthesias/numbnes s Modified On:07/10/2022 Status:confirmed R03.0 Elevated blood press ure (not hypertension) Modified On:07/10/2022 Status:confirmed H91.90 Hearing deficit Modified On:07/10/2022 Status:confirmed K21.9 Gastro-esophageal re flux disease Modified On:07/10/2022 Status:confirmed M19.90 DA (degenerative art hritis) Modified On:01/18/2023 Status:confirmed K58.9 Irritable bowel synd cas (IBS) Modified On:07/10/2022 Status:confirmed K62.5 RB (rectal bleeding) Modified On:07/10/2022 Status:confirmed L72.3 Sebaceous cyst Modified On:07/10/2022 Status:confirmed N32.81 Overactive bladder Modified On:07/10/2022 Status:confirmed N94.10 Unspecified dyspareu jerome Modified On:07/10/2022 Status:confirmed R31.29 Microscopic hematuri a Modified On:07/10/2022 Status:confirmed Z96.0 Vaginal pessary pres ent Modified On:07/10/2022 Status:confirmed B02.9 Herpes zoster withou t complications Modified On:07/10/2022 Status:confirmed R51.9 Headache, unspecifie d Modified On:07/10/2022 Status:confirmed E78.5 Hyperlipidemia Modified On:07/10/2022 Status:confirmed E78.5 Hyperlipidemia, unsp ecified Modified On:10/21/2022 Status:confirmed R79.89 Other specified abno rmal findings of blood chemistry Modified On:10/27/2022 Status:confirmed K21.9 GERD (gastroesophage al reflux disease) Modified On:01/21/2023 Status:confirmed D70.9 Neutropenia Modified On:01/21/2023 Status:confirmed I10 BP (high blood press ure) Modified On:04/26/2023 Status:confirmed R07.9 Chest pain Modified On:03/08/2023 Status:confirmed R51.9 Headache Modified On:05/12/2024W/U Status:confirmed * Medical History: * Surgical History: T eeth removal Hysterectomy * Hospitalization/Major Diagno stic Procedure: c hest pain 12/2022 * Family History: F ather: . M other: . B agapito(s): alive. S duncan(s): alive, diagnosed with Unspecified essential hypertension, Unspecified heart disease. 1 brother(s) , 1 sister(s) . 3 son(s) . . * Social History: T obacco Use: T obacco Use/Smoking P atient is a n onsmoker D rug/Alcohol: A OLGA LIDIA-C (Standard) D id you have a drink containing alcohol in the past year? N o P oints 0 I nterpretation N egative * Medications: N ot-Taking/PRNDicyclomine HCl 10 MG Capsule 1 capsule Orally daily prn Meloxicam 7.5 MG Tablet 1 tablet Orally Once a day Omeprazole 40 MG Capsule Delayed Release TAKE ONE CAPSULE BY MOUTH DAILY Simvastatin 40 MG Tablet 1 tablet in the evening Orally Once a day Medication List reviewed and reconciled with the patientNot- Taking/PRN Dicyclomine HCl 10 MG Capsule 1 capsule Orally daily prn Not-Taking/PRN Meloxicam 7.5 MG Tablet 1 tablet Orally Once a day Not-Taking/PRN Omeprazole 40 MG Capsule Delayed Release TAKE ONE CAPSULE BY MOUTH DAILY Not-Taking/PRN Simvastatin 40 MG Tablet 1 tablet in the evening Orally Once a day Medication List reviewed and reconciled with the patient * Allergies: N .K.D.A.no[Allergies Verified] Objective: * Vitals: W t:135lbs, Ht: 64 in, BP:140/80mm Hg, BMI:23.17Index, Ht-cm: 162.56 cm, Wt-k.24 kg. * Examination: P hysical Exam: GENERAL: w ell developed, well nourished, in no acute distress. HEAD: n ormocephalic/atraumatic. EYES: p upils equal, round and reactive to light, conjunctivae and sclerae normal. EARS: n o deformity or lesion of external ear, canals and TM appear normal bilaterally, TM's intact, not inflamed with normal light reflex, hearing grossly normal to conversational speech. NOSE: n o deformity, discharge, inflammation, or lesions.? MOUTH: m ucous membranes moist, normal oropharynx and posterior pharynx without lesions or exudates, tongue normal, dentition normal. NECK: n yordan supple, no masses or palpable cervical nodes, trachea midline, thyroid without nodules, masses, tenderness, or enlargement. CHEST: n o chest wall deformity, no chest wall tenderness.? LUNGS: n ormal respiratory effort and clear to auscultation, no wheezes, rales, or rhonchi, good air exchange. CARDIO: r egular rate and rhythm, normal S1 and S2, nor murmur, rub, or gallop. PULSES: n ormal capillary refill. ABDOMEN: s oft, non-distended, non-tender, no masses. MUSCULOSKELETAL: n o deformity or scoliosis noted, normal range of motion, joints normal, no erythema, edema, effusion, or ecchymosis. EXTREMITY: n o clubbing, cyanosis, edema, or deformity with normal ROM in both upper and lower bilateral extremities. NEUROLOGIC: g rossly normal. SKIN: n o rashes, ulcerations, or suspicious lesions. LYMPH NODES: n o cervical adenopathy, nodes normal. MENTAL STATUS: a lert and oriented x3, normal mood and affect. Assessment: * Assessment: 1. H eadache - R51.9 (Primary) Plan: * Treatment: * Procedure Codes: * Preventive Medicine: Screenings/Counseling: F ALL RISK SCREENING Fall Risk Assessment: N o falls in the past year * * Sign off status: Completed Visit Status: C HK (Check Out) true * Provider: Madyson Hung ([facility])MD Date: 0 05/12/2024 Generated for Printi ng/Brian/eTransmitting on: 0 08/02/2024 11:56 AM EDT History and Physical Notes * HPI (History of Present Illness) Category Sub-Category Detail Notes Category Not es Depression Screening PHQ-2 (2015 Edition) Little interest or pleasure in doing things?: Not at all Feeling down, depressed, or hopeless?: N ot at all Total Score: 0 Examination Category Sub-Category Detail Notes Category Not es Physical Exam GENERAL: well developed, well nourished, in no acute distress HEAD: normocephalic/atraum atic EYES: pupils equal, round and reactive to light, conjunctivae and sclerae normal EARS: no deformity or lesi on of external ear, canals and TM appear normal bilaterally, TM's intact, not inflamed with normal light reflex, hearing grossly normal to conversational speech NOSE: no deformity, discha rge, inflammation, or lesions MOUTH: mucous membranes so st, normal oropharynx and posterior pharynx without lesions or exudates, tongue normal, dentition normal NECK: neck supple, no mass es or palpable cervical nodes, trachea midline, thyroid without nodules, masses, tenderness, or enlargement CHEST: no chest wall deform ity, no chest wall tenderness LUNGS: normal respiratory e ffort and clear to auscultation, no wheezes, rales, or rhonchi, good air exchange CARDIO: regular rate and rhy thm, normal S1 and S2, nor murmur, rub, or gallop PULSES: normal capillary ref ill ABDOMEN: soft, non-distended, non-tender, no masses RECTAL: MUSCULOSKELETAL: no deformity or scol iosis noted, normal range of motion, joints normal, no erythema, edema, effusion, or ecchymosis EXTREMITY: no clubbing, cyanosi s, edema, or deformity with normal ROM in both upper and lower bilateral extremities NEUROLOGIC: grossly normal SKIN: no rashes, ulceratio ns, or suspicious lesions LYMPH NODES: no cervical adenopat hy, nodes normal MENTAL STATUS: alert and oriented x 3, normal mood and affect
--- OUTSIDE RECORDS SUMMARY | 2024-07-26 11:15 | XMS_ITS | Encounter Summary ---
[facility] Organization [id number] [address] [place] [address] Care Team Providers Care Medical Device Sales Name Role Phone Cristian Hung MD Primary Care Provider +- Reason for Visit * Reason Comments Urinary Frequency Encounter Details Date Type Department Care Team (Late st Contact Info) Description 07/26/2024 11:15 AM EDT Office Visit [facility] [address] [place] [address] [place] [address] Shana Grimaldo I, ADRIANNA [address] [place] [address] Microscopic hematuria (Primary Dx); Female genital prolapse, unspecified type Social History Tobacco Use Types Packs/Day Years Used Date Smoking Tobacco: Never Smokeless Tobacco: Never Alcohol Use Standard Drinks/Week Comments No 0 (1 standard drink = 0.6 oz pur e alcohol) Childcare Answer Date Recorded Childcare Unknown 07/27/2018 Employment Answer Date Recorded Employment Unknown 07/27/2018 Hunger Screening Answer Date Recorded Within the past 12 months we worried whether our food would run out before we got money to buy more. Never True 07/26/2024 Within the past 12 months th e food we bought just didn't last and we didn't have money to get more. Never True 07/26/2024 Purpose - Life Answer Date Recorded Purpose and direction in life Unknown 01 /01/2021 Comments No Sex and Gender Information Value Date Recorded Sex Assigned at Not on file Legal Sex Female 11:31 AM EDT Gender Identity Not on file Sexual Orientation Not on file documented as of this encounter Last Filed Vital Signs Vital Sign Reading Time Taken Comments Blood Pressure - - Pulse - - Temperature - - Respiratory Rate - - Oxygen Saturation - - Inhaled Oxygen Concentration - - Weight 70.3 kg (155 lb) 07/26/2024 11:22 AM EDT Height 162.6 cm (5' 4 ) 07/26/2024 11:22 AM EDT Body Mass Index 26.61 07/26/2024 11:22 AM EDT documented in this encounter Progress Notes * ADRIANNA Carter - 07/26/2024 11:15 AM EDT Images from the original note were not included. [address] [place] [address] A [facility] [address] Patient: Alysha Gillette Date of : 1945 Encounter Date: 07/26/2024 History of Present Illness: The patient is a 79 y.o. female, an established patient, and is here for frequency. Please see her history below. Recently she has had increased urinary frequency. She denies any dysuria or gross hematuria. She felt the pessary helped with her frequency in the past and is requesting to have it replaced today. She brought it with her. I inserted the #4 ring with support. She tolerated the procedure without problems. Summary of old records: Notes from ia 01/27/23: She is overdue for her pessary maintenance. Please see her history below. She is not had any vaginal bleeding or excessive vaginal discharge. She try to remove the pessary last night for intercourse but was unable to remove it. She denies any gross hematuria No urologic concerns at this time. Summary of old records: Notes from ia 02/25/22: She has noticed some increased urinary frequency since it was removed at her last visit. She has no other urologic concerns at this time. She did bring the 4. Ring support. Was able to insert without difficulty. I did have her try different positions to make sure did not move or cause discomfort. She tolerated the procedure well. Summary of old records: Notes from ia 01/14/22: Overall she is doing well with the pessary. She did run out of the Trimosan gel a few weeks ago andhas noticed an odor. She has not had any bleeding or pain. Although she is doing well, she requested to have the pessary out for one month She denies any gross hematuria. No other Urologic concerns at this time. Summary of old records: Notes from ia 10/08/21: She did undergo cystoscopy 07/08/2021. No abnormalities detected. Report from CT urogram 07/22/2021 states that there was a 1.2 cm simple right renal cyst. No other urologic abnormalities detected. There were a few incidental findings including an 8 mm hepatic lesion which was previously characterized as hemangioma, cholelithiasis, diverticulosis. I advised that she follow-up with her PCP regarding the non urologic findings. We handed her a copy of the report. She is doing well with the pessary. She feels that helps with some of her baseline voiding issues. She denies any vaginal bleeding or discharge. She denies any gross hematuria. Chief Complaint: Summary of old records: Notes from ia 05/21/2021: Microscopic UA on 05/07/2021 showed 6 red blood cells and 3 white blood cells. Culture was negative. She has never smoked. She denies any history kidney stones. She denies any gross hematuria. She isnot on any blood thinners. She is still interested in having a pessary placed. I did place a #4 ring with support. This was comfortable for her. She was unable to remove it on her own. I told her that it does need to be removed for intercourse. She will contact the office if she has any problems. She will use the trimosan gel once weekly. We will see her back in 3 months for pessary maintenance. She was able to use the restroom without difficulty. Summary of old records: Notes from ia 05/07/2021: Recently she has noticed a vaginal bulge. 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 She has also had several months of urinary frequency and urgency. She denies any gross hematuria, dysuria, or incontinence. Postvoid residual as measured by bladder scan is 0 cc Urinalysis today: Recent Labs 07/26/24 1130 EXTPOCURBS Negative EXTPOCUKET Negative EXTPOCUPRO Negative EXTPOCUNIT Negative EXTPOCUBLD Trace EXTPOCUPH 5.0 Last BUN and creatinine: Lab Results Component Value Date BUN 16 09/07/2023 Lab Results Component Value Date CREATININE 0.78 09/07/2023 Past Medical, Family, and Social History Update: The following portions of the patient's history were reviewed and updated as appropriate: allergies, current medications, past family history, past medical history, past social history, past surgicalhistory and problem list. Past Medical History: Diagnosis Date Arthritis Diverticulosis GERD (gastroesophageal reflux disease) Hyperlipidemia Past Surgical History: Procedure Laterality Date CYSTOSCOPY N/A 07/08/2021 Performed by Terry Cox MD at [facility] HYSTERECTOMY OOPHORECTOMY Family History Problem Relation Age of Onset Stroke Mother Heart disease Father Diabetes Sister Breast cancer Neg Hx Current Outpatient Medications Medication Sig Dispense Refill dicyclomine (BENTYL) 10 mg capsule Take 1 capsule (10 mg total) by mouth 4 (four) times a day before meals and nightly. meloxicam (MOBIC) 7.5 mg tablet Take 1 tablet (7.5 mg total) by mouth in the morning. omeprazole (PriLOSEC) 40 mg capsule Take 1 capsule (40 mg total) by mouth in the morning. simvastatin (ZOCOR) 20 mg tablet Take 1 tablet (20 mg total) by mouth nightly. No current facility-administered medications for this visit. (All medications reviewed and updated by provider since last office visit or hospitalization) Allergies: Patient has no known allergies. Tobacco History: Social History Tobacco Use Smoking Status Never Smokeless Tobacco Never (If patient a smoker, smoking cessation counseling offered) Social History: Social History Substance and Sexual Activity Alcohol Use No Review of Systems: General: Negative for chills and fever. Cardiovascular: Negative for chest pain and shortness of breath. Gastrointestinal: Positive for constipation Physical Exam: Ht 162.6 cm (5' 4 ) Wt 70.3 kg (155 lb) BMI 26.61 kg/m?? Constitutional: She appears well-developed. No distress. Pulmonary/Chest: Effort normal. No respiratory distress. Neurological: She is alert and oriented for age. Gait normal. Nursing note and vitals reviewed. Assessment and Plan: Alysha was seen today for urinary frequency. Diagnoses and all orders for this visit: Microscopic hematuria - POCT Urinalysis Auto, W/O Microscopy Female genital prolapse, unspecified type Problem List Genitourinary Female genital prolapse Overview 05/07/21: Cystocele on exam. She is not interested in surgical intervention. I will see her back in 2 weeks for pessary fitting. I did explain that this may not help with her urinary symptoms and may actually even make them worse. We will address that if that is a problem. I am sending today's urinefor microscopic exam. We will only call her if positive 05/21/21: Fit with #4 ring with support 10/08/21: Doing well with pessary 01/14/22: Overall doing well but requested to have pessary out for a month 02/25/22: Pessary reinserted. She will use Trimosan gel weekly in come back in 3 months for maintenance. 01/27/23: Pessary removed. She would like to have it out for a while. She would like to return in 1month to have it replaced. 07/26/24: Pessary replaced Current Assessment & Plan We will see her back in 3 months for maintenance. She will call sooner if she feels the with her frequency or she experiences any discomfort /problems. She had some interested in trying to learn how to remove the pessary on her own but was unable to do so. She will call if she feels it needs to be removed before her follow-up Microscopic hematuria - Primary Overview 05/21/21: UA showed 6 red blood cells. Culture negative. She agrees to further evaluation with CT urogram and cystoscopy. 10/08/21: S/p cystoscopy 07/08/21. CT Urogram neg. Denies any gross hematuria 01/14/22: No gross hematuria 07/26/24: UA shows trace blood. No gross hematuria. Relevant Orders POCT Urinalysis Auto, W/O Microscopy (Completed) Follow-up: Me in 3 months for pessary maintenance ADRIANNA CARTER This note was created with the assistance of a speech recognition program. While intending to generate a timely document that accurately reflects the content of the visit, no guarantee can be provided that every grammatical or spelling mistake has been or will be identified or corrected. Thank you for your understanding. ADRIANNA Carter 07/26/24 1414 documented in this encounter Miscellaneous Notes * Assessment & Plan Note - ADRIANNA Carter - 07/26/2024 2:13 PM EDT Associated Problem(s): Female genital prolapse We will see her back in 3 months for maintenance. She will call sooner if she feels the with her frequency or she experiences any discomfort /problems. She had some interested in trying to learn how to remove the pessary on her own but was unable to do so. She will call if she feels it needs to be removed before her follow-up documented in this encounter Plan of Treatment Upcoming Encounters Date Type Department Care Team (Late st Contact Info) Description 11/08/2024 10:45 AM EDT Office Visit [facility] [address] [place] [address] [place] [id number] Shana Grimaldo PA [facility] [place] [address] documented as of this encounter Procedures Procedure Name Priority Date/Time Associated Diagnosis Comments PM AMB POCT URINALYSIS AUTO, W/O MICROSCOPY Routine 07/26/2024 11:30 AM EDT Microscopic hematuria documented in this encounter Results * POCT Urinalysis Auto, W/O Microscopy (07/26/2024 11:30 AM EDT) External Poct Urine Glucose Negative MANUALLY TRANSCRIBED RESULTS External Poct Urine Ketones Negative MANUALLY TRANSCRIBED RESULTS External Poct Urine Blood Trace MANUALLY TRANSCRIBED RESULTS External Poct Urine Ph 5.0 MANUALLY TRANSCRIBED RESULTS External Poct Urine Protein Negative MANUALLY TRANSCRIBED RESULTS External Poct Urine Nitrite Negative MANUALLY TRANSCRIBED RESULTS External Poct Urine Leukocyte Esterase Negative MANUALLY TRANSCRIBED RESULTS Urine Urine specimen collection, clean catch / Unknown 07/26/2024 11:30 AM EDT us Shana RODAS POINT OF CARE TEST ORDERABL ES Final Result MANUALLY TRANSCRIBED RESULTS documented in this encounter Visit Diagnoses Diagnosis Microscopic hematuria- Primary Female genital prolapse, unspecified type documented in this encounter Care Teams Medical Device Sales Relationship Specialty Start Date End Date Cristian Hung MD PCP - General Family Medicine 09/07/23 documented as of this encounter
[2024-08-02 11:54] VITALS: BP 163/77; PULSE 70; TEMP 37.1; O2SAT 99; BMI 24.0
--- OUTSIDE RECORDS SUMMARY | 2024-08-02 11:56 | XMS_ITS | Clinical Summary ---
Author Organization [facility] Address [address] [place] [address] Care Team Providers Care Infant Teacher Name Role Phone Unavailable Primary Care Provider Unavailabl e Social History Tobacco Use Types Packs/Day Years Used Date Smoking Tobacco: Never Assessed Comments Unknown Sex and Gender Information Value Date Recorded Sex Assigned at Not on file Legal Sex Female 6:44 PM EDT Gender Identity Not on file Sexual Orientation Not on file Last Filed Vital Signs Vital Sign Reading Time Taken Comments Blood Pressure 130/84 06/15/2022 12:00 PM EDT Pulse - - Temperature - - Respiratory Rate - - Oxygen Saturation - - Inhaled Oxygen Concentration - - Weight 68.9 kg (151 lb 12.8 oz) 023 12:00 PM EDT Height 162.6 cm (5' 4 ) 06/15/2022 12:0 0 PM EDT Body Mass Index 26.06 06/15/2022 12:00 PM EDT Plan of Treatment Health Maintenance Due Date Last Done Comments Pneumococcal Vaccine: 65+ Years (2 of 2 - PCV) 016 11/28/2014 Influenza Vaccine (Season Ended) 2024 11/29/19 15
--- OUTSIDE RECORDS SUMMARY | 2024-08-02 11:56 | XMS_ITS | Patient Health Record ---
Author Organization [facility] [place] Address [address] [place] [address] Care Team Providers Care Advisory Intern Name Role Phone Elvi Patel Primary Care Provider [phone] Anabell Celso Unavailable [phone] Allergies No Known Allergies Results Component Value Reference Range Notes PROF CHEM 8 (BAS METB) Reviewed date:04/24/2024 02:02:17 PM Interpretation: Performing Lab: Notes/Report: [facility] , Sodium 142 136-145 mmol/L Potassium 3.5 3.5-5.1 mmol/L Chloride 107 98-107 mmol/L Carbon Dioxide 27.0 21.0-32.0 mmol/L Anion Gap 11.5 Glucose 87 74-106 mg/dL Blood Urea Nitrogen 13.0 7.0-18.0 mg/dL Creatinine 0.73 0.55-1.02 mg/dL Estimated GFR ( Tamara >60 >=60 mL/min/1.73m 2 Estimated GFR (Non- Deborah >60 >=60 mL/min/1.73m 2 BUN Creatinine Ratio 17.8 Calcium 9.1 8.5-10.1 mg/dL Performing Lab: see note ML - [facility] LB MAGNESIUM Reviewed date:04/24/2024 02:02:17 PM Interpretation: Performing Lab: Notes/Report: [facility] , Magnesium 1.8 1.8-2.4 mg/dL Performing Lab: see note ML - [facility] LB CBC AUTO DIFF Reviewed date:04/24/2024 02:02:17 PM Interpretation: Performing Lab: Notes/Report: [facility] , White Blood Count 4.4 4.0-11.0 10 3/uL Red Blood Count 4.42 4.20-5.40 10 6/uL Hemoglobin 12.7 12.0-16.0 g/dL Hematocrit 39.6 36.0-48.0 % Mean Corpuscular Volume 89.6 81.0-99.0 fL Mean Corpuscular Hemoglobin 28.7 26.7-34.0 pg Mean Corpuscular HGB Conc 32.1 29.9-35.2 g/dL Red Cell Distribution Width 14.1 11.0-15.0 % Platelet Count 300 150-450 10 3/uL Mean Platelet Volume 9.1 9.5-13.5 fL Neutrophils Percent Auto 53.9 43.0-75.0 % Lymphocytes Percent Auto 38.1 20.5-60.0 % Monocytes Percent Auto 6.2 1.7-12.0 % Eosinophils Percent Auto 1.1 0.9-7.0 % Basophils Percent Auto 0.7 0.2-2.0 % Immature Granulocytes Pct Auto 0.0 0.0-0.5 % Neutrophils Absolute Auto 2.4 1.4-6.5 10 3/uL Lymphocytes Absolute Auto 1.7 1.2-3.8 10 3/uL Monocytes Absolute Auto 0.3 0.3-0.8 10 3/uL Eosinophils Absolute Auto 0.1 0.0-0.7 10 3/uL Basophils Absolute Auto 0.0 0.0-0.1 10 3/uL Immature Granulocytes Abs Auto 0.00 0.00-0.03 10 3/uL Performing Lab: see note ML - [facility] MM tomosynthesis screening B I Reviewed date:02/28/2024 08:03:04 PM Interpretation: Performing Lab: Notes/Report: Source Facility: [facility] [place] [address] [place] [address] Mammography Report Signed Patient: ALYSHA MORTON MR#: [id number] : 1945 Acct:[id number] Age/Sex: 78 / F ADM Date: 02/28/24 Loc: MAMMO Attending Dr: Paige Ordonez M.D. Ordering Physician: Paige Ordonez M.D. Results: Date of Service: 02/28/24 Follow Up: Procedure(s): MM tomosynthesis screening BI Accession Number(s): [id number] cc: Paige Ordonez M.D. Patient Name: ALYSHA MORTON MR#: [id number] : 1945 Exam Date: 02/28/2024 Ordering Doctor: DR Paige Ordonez . RADIOLOGY REPORT PROCEDURE: MM TOMOSYNTHESIS SCREENING BI COMPARISON: MG MAMM SCREEN 3D PHYLLIS CAD, 02/23/2022. MM TOMOSYNTHESIS SCREENING BI, 02/24/2023. INDICATIONS: Screening Calculator Name NCI Breast Cancer Risk Assessment Tool 5 Year Breast Cancer Risk 1.70% Lifetime Breast Cancer Risk 2.80% Personal Breast Cancer No Personal Ovarian Cancer No Treatments None Family Cancers None LOCATION: [facility] BREAST COMPOSITION: There are scattered areas of fibroglandular density. FINDINGS: DIAGNOSTIC CATEGORY 1--NEGATIVE. NO [...] PALPABLE LUMP SHOULD BE BIOPSIED. Dictated by: Joshua Torres MD on 02/28/2024 at 13:18 Approved by: Joshua Torres MD on 02/28/2024 at 13:20 Dictated By: Joshua Torres M.D. Signed By: 02/28/24 1321 DD/ 1320 TD/TT: Funeral Director: [place] [address] Mammography Report Signed Patient: ROSITA MORTON MR#: [id number] : 1945 Acct:[id number] Age/Sex: 78 / F ADM Date: 02/28/24 Loc: MAMMO Attending Dr: Doug Ordonez M.D. Ordering Physician: Paige Ordonez M.D. Results: Date of Service: Follow Up: Procedure(s): MM tomosynthesis screening BI Accession Number(s): [id number] cc: Paige Ordonez M.D. Patient Name: ALYSHA MORTON MR#: [id number] : 1945 Exam Date: 02/28/2024 Ordering Doctor: DR Paige Ordonez . RADIOLOGY REPORT PROCEDURE: MM TOMOSYNTHESIS SCREENING BI COMPARISON: MG MAMM SCREEN 3D PHYLLIS CAD, 02/23/2022. MM TOMOSYNTHESIS SCREENING BI, 02/24/2023. INDICATIONS: Screening Calculator Name NCI Breast Cancer Risk Assessment Tool 5 Year Breast Cancer Risk 1.70% Lifetime Breast Canc er Risk 2.80% Personal Breast Cancer No Personal Ovarian Cancer No Treatments None Family Cancers None LOCATION: [facility] BREAST COMPOSITION: There are scattered areas of fibroglandular density. FINDINGS: DIAGNOSTIC CATEGORY 1--NEGATIVE. NO CHANGE FROM COMPARISON ASSESSMENT. Scattered benign-eduardo earing calcifications are present. Scattered benign-appearing lym ph nodes are present. RIGHT BREAST: No significant suspicious finding. LEFT BREAST: No significant suspicious finding. RECOMMENDATIONS: ROUTINE MAMMOGRAM AN D CLINICAL EVALUATION IN 12 MONTHS. PLEASE NOTE: A PAWAN L MAMMOGRAM DOES NOT EXCLUDE THE POSSIBILITY OF BREAST CANCER. A CLINICALLY SUSPICIOUS PALPABLE LUMP SHOULD BE BIOPSIED. Dictated by: Joshua short MD on 02/28/2024 at 13:18 Approved by: Joshua short MD on 02/28/2024 at 13:20 Dictated By: Edward Torres M.D. Signed By: 02/28/24 1321 DD/ 1320 TD/TT: Funeral Director: Troponin I High Sensitivity Reviewed date:12/22/2023 09:05:45 PM Interpretation: Performing Lab: Notes/Report: [facility] , Troponin I High Sensitivity 6.7 4.0-51.3 pg/mL REFERENCE LIMIT (URL) OF TROPONIN, DEFINED THE 99TH WITH OTHER DIAGNOSTIC AND CLINICAL INFORMATION. PERCENTILE OF cTnI DISTRIBUTION IN A REFERENCE POPULATION, NOTE: HIGH-SENSITIVITY TROPONIN ASSAY IS NOT INTENDED TO BE 99TH PERCENTILE = 51.4 PG/ML UNIVERSAL DEFINITION OF MYOCARDIAL INFARCTION. THE UPPER CUT-OFF POINTS HAVE BEEN ESTABLISHED BASED ON THE FOURTH DIAGNOSIS. HAS BEEN CONFIRMED THE DECISION THRESHOLD FOR AL USED IN ISOLATION BUT SHOULD BE INTERPRETED IN CONJUNCTION Performing Lab: see note ML - [facility] LB XR chest 1V Reviewed date:12/22/2023 09:05:45 PM Interpretation: Performing Lab: Notes/Report: Source Facility: [place] [address] [place] [address] XRay Report Signed Patient: ALYSHA MORTON MR#: [id number] : 1945 Acct:[id number] Age/Sex: 78 / F ADM Date: 12/21/23 Loc: ER Attending Dr: Ordering Physician: Frank Coles Date of Service: 12/21/23 Procedure(s): XR chest 1V Accession Number(s): [id number] cc: Paige Ordonez M.D.; Frank Coles [place] [address] Patient Name: ALYSHA MORTON MRN: [id number] date: 1945 Sex: F Assigned Patient Location: ER Current Patient Location: ED.MAIN Accession/Order Number: [id number] Exam Date: 12/21/2023 18:02 Report Date: 12/21/2023 20:04 At the request of: FRANK COLES Procedure: XR chest 1V CHEST RADIOGRAPH: HISTORY: chest pain. COMPARISON: Chest 01/13/2023.. TECHNIQUE: AP radiograph of was performed of the chest. FINDINGS: SUPPORT APPARATUS/POST-SURGICAL CHANGES: None. CARDIOMEDIASTINAL SILHOUETTE: Upper limits of normal in size. 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 There is widening of the right paratracheal mediastinum, likely due to tortuous/ectatic great vessels and this is stable. AIRWAYS/LUNGS: Normal. PLEURAL SPACES: Possible small left pleural effusion. No definite right pleural effusion or pneumothorax. BONES AND SOFT TISSUES: No acute abnormality. XR/XR chest 1V IMPRESSION: 1. Possible small left pleural effusion. Consider follow-up PA and lateral chest radiographs. 2. Otherwise no acute cardiopulmonary process. 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 Electronically authenticated by: ANGEL LEE Date: 12/21/2023 20:04 Dictated By: Angel Lee M.D. Signed By: 12/21/232006 DD/ 03 TD/TT: Funeral Director: [place] [address] XRay Report Signed Patient: ROSITA MORTON MR#: [id number] : 1945 Acct:[id number] Age/Sex: 78 / F ADM Date: 12/21/23 Loc: ER Attending Dr: Ordering Physician: Frank Coles Date of Service: 12/21/23 Procedure(s): XR chest 1V Accession Number(s): [id number] cc: Paige Ordonez M.D. ; Frank Coles [place] [id number] Patient Name: ALYSHA MORTON MRN: [id number] date: 1945 Sex: F Assigned Patient Loc ation: ER Current Patient Loca tion: ED.MAIN Accession/Order Numb er: [id number] Exam Date: 18:02 Report Date: 12/21/2023 20:04 At the request of: FRANK COLES Procedure: XR chest 1V CHEST RADIOGRAPH: HISTORY: chest pain. COMPARISON: Chest 01/13/2023.. TECHNIQUE: AP radiog raph of was performed of the chest. FINDINGS: SUPPORT APPARATUS/POST-SURGICAL CHANGES: None. CARDIOMEDIASTINAL SILHOUETTE: Upper limits of normal in size. The aorta is ectatic with the aor tic knob measuring 3.1 cm and this is stable. There is widening of the righ t paratracheal mediastinum, likely due to tortuous/ectatic great vessels and th is is stable. AIRWAYS/LUNGS: Normal. PLEURAL SPACES: Poss ible small left pleural effusion. No definite right pleural effusion or pneumothorax. BONES AND SOFT TISSU ES: No acute abnormality. X R/XR chest 1V IMPRESSION: 1. Possible small le ft pleural effusion. Consider follow-up PA and lateral chest radiographs. 2. Otherwise no acut e cardiopulmonary process. 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 Electronically authenticated by: ANGEL LEE Date: 12/21/2023 20:04 Dictated By: Ileana Lee M.D. 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D. 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1945 Req uested By: 1860 Order Number: [id number] Reading MD: PAIGE ORDONEZ Measurements Intervals [place] Rate: 55 P: 63 TX: 138 QRS: -29 QRSD: 126 T: 59 QT: 452 QTc: 442 Interpretive Statements 1100 Sinus rhythm 2450 Right bundle br anch block 7202 Moderate left a xis deviation 9150 abnormal ECG Compared to ECG 12/17 11:15:08 Left-axis deviation now present Left anterior fascic ular block no longer present Myocardial infarct f inding no longer present Left ventricular hypertrophy no longer present Electronically [place] d On 12-22-2023 6:49:07 EST by PAIGE ORDONEZ Dictated By: Frankie Ordonez M.D. Signed By: 12/22/23 0649 DD/ 1757 TD/TT: Funeral Director: Troponin I High Sensitivity Reviewed date:12/22/2023 09:05:46 PM Interpretation: Performing Lab: Notes/Report: [facility] , Troponin I High Sensitivity 6.2 4.0-51.3 pg/mL PERCENTILE OF cTnI DISTRIBUTION IN A REFERENCE POPULATION, REFERENCE LIMIT (URL) OF TROPONIN, DEFINED THE 99TH 99TH PERCENTILE = 51.4 PG/ML UNIVERSAL DEFINITION OF MYOCARDIAL INFARCTION. THE UPPER CUT-OFF POINTS HAVE BEEN ESTABLISHED BASED ON THE FOURTH WITH OTHER DIAGNOSTIC AND CLINICAL INFORMATION. HAS BEEN CONFIRMED THE DECISION THRESHOLD FOR AL DIAGNOSIS. USED IN ISOLATION BUT SHOULD BE INTERPRETED IN CONJUNCTION NOTE: HIGH-SENSITIVITY TROPONIN ASSAY IS NOT INTENDED TO BE Performing Lab: see note ML - [facility] LB Prothrombin Time INR Reviewed date:12/22/2023 09:05:46 PM Interpretation: Performing Lab: Notes/Report: [facility] , Prothrombin Time 12.2 9.0-11.6 sec INR 1.17 2.5-3.5 RECURRENT THROMBOSIS 2.0-3.0 CONDITIONS NOT LISTED BELOW 2.5-3.5 FOR PROSTHETIC HEART VALVE REPLACEMENT DESIRED INR: Performing Lab: see note - [facility] LB PTT Reviewed date:12/22/2023 09:05:46 PM Interpretation: Performing Lab: Notes/Report: [facility] , Partial Thromboplastin Time 26.8 22.3-36.2 sec Performing Lab: see note [facility] LB PROF 14(COMP METB) Reviewed date:12/22/2023 09:05:45 PM Interpretation: Performing Lab: Notes/Report: [facility] , Sodium 146 136-145 mmol/L Potassium 4.1 3.5-5.1 mmol/L Chloride 109 98-107 mmol/L Carbon Dioxide 27.5 21.0-32.0 mmol/L Anion Gap 13.6 Glucose 102 74-106 mg/dL Blood Urea Nitrogen 27.0 7.0-18.0 mg/dL Creatinine 0.87 0.55-1.02 mg/dL Estimated GFR ( Tamara >60 >=60 mL/min/1.73m 2 Estimated GFR (Non- Deborah >60 >=60 mL/min/1.73m 2 BUN Creatinine Ratio 31.0 Calcium 9.9 8.5-10.1 mg/dL Bilirubin Total 0.6 0.2-1.0 mg/dL Aspartate Amino Transferase 19 15-37 U/L Alanine Aminotransferase 12 14-59 U/L Alkaline Phosphatase 82 46-116 U/L Total Protein 7.4 6.4-8.2 g/dL Albumin Level 3.8 3.4-5.0 g/dL Globulin 3.6 Albumin Globulin Ratio 1.1 Performing Lab: see note ML - [facility] LB CBC AUTO DIFF Reviewed date:12/22/2023 09:05:45 PM Interpretation: Performing Lab: Notes/Report: [facility] , White Blood Count 3.9 4.0-11.0 10 3/uL Red Blood Count 4.34 4.20-5.40 10 6/uL Hemoglobin 12.5 12.0-16.0 g/dL Hematocrit 39.1 36.0-48.0 % Mean Corpuscular Volume 90.1 81.0-99.0 fL Mean Corpuscular Hemoglobin 28.8 26.7-34.0 pg Mean Corpuscular HGB Conc 32.0 29.9-35.2 g/dL Red Cell Distribution Width 13.6 11.0-15.0 % Platelet Count 301 150-450 10 3/uL Mean Platelet Volume 9.4 9.5-13.5 fL Neutrophils Percent Auto 36.9 43.0-75.0 % Lymphocytes Percent Auto 52.5 20.5-60.0 % Monocytes Percent Auto 7.2 1.7-12.0 % Eosinophils Percent Auto 2.3 0.9-7.0 % Basophils Percent Auto 0.8 0.2-2.0 % Immature Granulocytes Pct Auto 0.3 0.0-0.5 % Neutrophils Absolute Auto 1.4 1.4-6.5 10 3/uL Lymphocytes Absolute Auto 2.0 1.2-3.8 10 3/uL Monocytes Absolute Auto 0.3 0.3-0.8 10 3/uL Eosinophils Absolute Auto 0.1 0.0-0.7 10 3/uL Basophils Absolute Auto 0.0 0.0-0.1 10 3/uL Immature Granulocytes Abs Auto 0.01 0.00-0.03 10 3/uL Performing Lab: see note ML - [facility] LB Reason For Referral No Information Medications Medication SIG (Take, Route, Frequency, Duration) [...] Question Answer Notes Patient is a nonsmoker Alcohol Screen (Audit-C) Question Answer Notes Did you have a drink containing alcohol in the p ast year? No Points 0 Interpretation Negative AUDIT-C (Standard) Question Answer Notes Did you have a drink containing alcohol in the p ast year? No Points 0 Interpretation Negative Problems Problem Type SNOMED Code ICD Code Onset Dates Problem Status W/U Status Risk Notes Problem 43951086 Hyperlipidemia, unspecified (E78.5) Active confirmed Problem Sebaceous cyst (567212438) Sebaceous cyst (L72.3) Active confirmed Problem Overactive bladder (425343466) Overactive bladder (N32.81) Active confirmed Problem 348519208 Other specified abnormal findings of blood chemistry (R79.89) Active confirmed Problem Chest pain (53503390) Chest pain (R07.9) Active confirmed Problem Hyperlipidemia (07174408) Hyperlipidemia (E78.5) Active confirmed Problem Gastroesophageal reflux disease (945518365) GERD (gastroesophageal reflux disease) (K21.9) Active confirmed Problem Dyspnea (402276345) Dyspnea (R06.00) Active con firmed Problem Vitamin D deficiency (49798856) Vitamin D deficiency (E55.9) Active confirmed Problem Back pain (558515959) Back pain (M54.9) Active confirmed Problem Foot pain (47966320) Foot pain (M79.673) Active confirmed Problem Constipation (69332635) Constipation (K59.00) Active confirmed Problem Murmur (568415460) Murmur (R01.1) Active confir med Problem Osteoporosis (26517297) Osteoporosis (M81.0) Active confirmed Problem Neutropenia (849828540) Neutropenia (D70.9) Active confirmed Problem Skin sensation disturbance (29392573) Paresthesias/numb ness (R20.9) Active confirmed Problem Elevated blood pressure reading without diagnosis of hypertension (120811474) Elevated blood pressure (not hypertension) (R03.0) Active confirmed Problem Hearing loss (33998484) Hearing deficit (H91.90) Active confirmed Problem Gastro-esophageal reflux disease (945972913) Gastro-esophageal reflux disease (K21.9) Active confirmed Problem Osteoarthritis (514255714) DA (degenerative arthritis) (M19.90) Active confirmed Problem Irritable bowel syndrome (67653885) Irritable bowel syndrome (IBS) (K58.9) Active confirmed Problem Hemorrhage of rectum and anus (850515320) RB (rectal bleeding) (K62.5) Active confirmed Problem Essential hypertension (07816967) BP (high blood pressure) (I10) Active confirmed Problem Dyspareunia (09650067) Unspecified dyspareunia (N94.10) Active confirmed Problem Microscopic hematuria (100085983) Microscopic hematuria (R31.29) Active confirmed Problem Vaginal pessary in situ (finding) (0309125664927) Vaginal pessary present (Z96.0) Active confirmed Problem Herpes zoster without complication (044016380) Herpes zoster without complications (B02.9) Active confirmed Problem Headache (76654364) Headache, unspecified (R51.9) Active confirmed Problem Headache (48135154) Headache (R51.9) Active con firmed Vital Signs Blood pressure diastolic 80 mm Hg 05/12/2024 Height 64 in 05/12/2024 Blood pressure systolic 140 mm Hg 05/12/2024 Weight 135 lbs 05/12/2024 BMI 23.17 kg/m2 05/12/2024 Encounters Encounter Location Date Provider Diagnosis [facility] [address] [place] [address] 09/28/2023 [facility] [address] [place] [address] 10/26/2023 Elvi [facility] [address] [place] [address] 02/28/2024 Celso Hoy [facility] [address] [place] [address] 05/12/2024 Celso Ordonez Headache R51.9 Assessments Encounter Date Diagnosis (ICD Code) Assessment Notes Treatment Notes Treatment Clinical Notes Section Notes 05/12/2024 Headache (ICD-10 - R51.9) Plan Of Treatment Pending Test Test Name Order Date CMP (COMPLETE METABOLIC PANEL) 3 HEMOGLOBIN A1C (GLYCO) 10/21/2022 IRON, TOTAL 10/21/2022 LIPID PANEL (CHOL/TRIG/HDL/LDL) 10/22/19 23 CBC WITH DIFF 10/21/2022 VITAMIN D, 25 LEVEL (TOTAL) 10/21/2022 Insulin Level 10/21/2022 Cardiolyte Stress Test 01/18/2023 CBC W/AUTO DIFF 01/18/2023 STOOL OCCULT BLOOD 10/21/2022 CBC AUTO DIFF 10/26/2022 MRI BRAIN WO CON 05/12/2024 THYROID PANEL (T4/TSH/FREE T3) 3 Insurance Providers Payer Name Payer Address Payer Phone Subscriber Number Group Number Insured Name Patient Relationship to Insured Coverage Start Date Coverage End Date [employer] MED[employer]ARE [address] [address] [place], [place] [id number] Alysha Morton Self - patient is the insured 3 Medical (General) History Medical History History ICD Code Urinary tract infection N39.0 Vaginal pessary present Z96.0 Irritable bowel syndrome (IBS) K58.9 Itch of skin L29.9 Headache, unspecified R51.9 Hyperlipidemia E78.5 Gastro-esophageal reflux disease K21.9 Left otitis media H66.92 Acute sinusitis J01.90 H/O colonoscopy Z98.890 Contusion of unspecified site T14.8XXA Herpes zoster without complications B02. 9 Vaginitis N76.0 Hearing deficit H91.90 Unspecified dyspareunia N94.10 Dyspnea R06.00 Sebaceous cyst L72.3 Overactive bladder N32.81 Urinary frequency R35.0 Constipation K59.00 Vitamin D deficiency E55.9 Osteoporosis M81.0 Cerumen impaction H61.20 Microscopic hematuria R31.29 Elevated blood pressure (not hypertensio n) R03.0 Back pain M54.9 RB (rectal bleeding) K62.5 Foot pain M79.673 Paresthesias/numbness R20.9 Murmur R01.1 DA (degenerative arthritis) M19.90 Surgical History Surgery Date(Month/Year) Hysterectomy Teeth removal Hospitalization History Reason Date(Month/Year) chest pain 12/2022
--- OUTSIDE RECORDS SUMMARY | 2024-08-02 11:56 | XMS_ITS | Clinical Summary ---
Author Organization [employer] Address [id number] [address] [place] [address] Care Team Providers Care Interior Design Program Chair Name Role Phone Cristian Hung MD Primary Care Provider [phone] Allergies No known active allergies Medications omeprazole (PriLOSEC) 40 mg capsule Take 1 capsule (40 mg total) by mouth in the morning. 02/09/2019 Active meloxicam (MOBIC) 7.5 mg tablet Take 1 tablet (7.5 mg total) by mouth in the morning. Active dicyclomine (BENTYL) 10 mg capsule Take 1 capsule (10 mg total) by mouth 4 (four) times a day before meals and nightly. Active simvastatin (ZOCOR) 20 mg tablet Take 1 tablet (20 mg total) by mouth nightly. Active Active Problems Problem Noted Date Diagnosed Date Microscopic hematuria 05/21/2021 Overview (07/26/2024): 05/21/21: UA showed 6 red blood cells. Culture negative. She agrees to further evaluation with CT urogram and cystoscopy. 10/08/21: S/p cystoscopy 07/08/21. CT Urogram neg. Denies any gross hematuria 01/14/22: No gross hematuria 07/26/24: UA shows trace blood. No gross hematuria. 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 She is not interested in surgical intervention. I will see her back in 2 weeks for pessary fitting. I did explain that this may not help with her urinary symptoms and may actually even make them worse. We will address that if that is a problem. I am sending today's urine for microscopic exam. We will only call her [...] while. She would like to return in 1 month to have it replaced. 07/26/24: Pessary replaced Assessment & Plan (07/26/2024 2:13 PM EDT): We will see her back in 3 months for maintenance. She will call sooner if she feels the with her frequency or she experiences any discomfort /problems. She had some interested in trying to learn how to remove the pessary on her own but was unable to do so. She will call if she feels it needs to be removed before her follow-up Assessment & Plan (02/25/2022 12:31 PM EST): We will recheck her urine at her next appointment Assessment & Plan (10/08/2021 12:34 PM EDT): We will continue to see her back on a 3 month basis for maintenance. She will continue with the Trimosan gel. I reminded her that she should not have vaginal intercourse with the pessary in place. I tried to teach her how to remove it inserted on her own, but she was unable to do so. She would still like to leave it in place. She will call me if she wants it removed temporarily. Assessment & Plan (05/21/2021 12:47 PM EDT): She is uncomfortable with pessary maintenance. We will see her back every 3 months. In the meantime, she will use trimosan weekly Urinary urgency 05/07/2021 Non-rheumatic mitral regurgitation 07/14/2017 Abnormal EKG 07/14/2017 Encounters Date Type Department Care Team Description 07/26/2024 11:15 AM EDT Office Visit [facility] [address] [place] [address] [place] [phone] Shana Grimaldo PA Microscopic hematuria (Primary Dx); Female genital prolapse, unspecified type 05/02/2024 11:15 AM EDT - 05/02/2024 12:19 PM EDT Emergency [facility] [address] [place] [address] Other chronic pain (Primary Dx) Discharge Disposition: Home 05/02/2024 Travel from Last 3 Months Immunizations Immunization Administration Dates Next Due COVID-19, mRNA, LNP-S, PF, 100mcg/0.5mL Dose ,04/12/2020 Family History Medical History Relation Name Comments Heart disease Father Stroke Mother Diabetes Sister Breast cancer Neg Hx Relation Name Status Comments Father Mother Sister Social History Tobacco Use Types Packs/Day Years Used Date Smoking Tobacco: Never Smokeless Tobacco: Never Tobacco Cessation:Counseling Given: Not Answered Alcohol Use Standard Drinks/Week Comments No 0 [...] Recorded Purpose and direction in life Unknown Comments No Sex and Gender Information Value Date Recorded Sex Assigned at Not on file Legal Sex Female 11:31 AM EDT Gender Identity Not on file Sexual Orientation Not on file Last Filed Vital Signs Vital Sign Reading Time Taken Comments Blood Pressure 149/92 05/02/2024 12:00 PM EDT Pulse 94 05/02/2024 11:21 AM EDT Temperature 37.2 C (99 F) 05/02/2024 11:21 AM EDT Respiratory Rate 18 05/02/2024 11:21 AM EDT Oxygen Saturation 98% 05/02/2024 12:00 PM EDT Inhaled Oxygen Concentration - - Weight 70.3 kg (155 lb) 07/26/2024 11:22 AM EDT Height 162.6 cm (5' 4 ) 07/26/2024 11:22 AM EDT Body Mass Index 26.61 07/26/2024 11:22 AM EDT Plan of Treatment Upcoming Encounters Date Type Department Care Team (Late st Contact Info) Description 11/08/2024 10:45 AM EDT Office Visit [facility] [address] [place] [address] [place] [address] [address] [place] [address] Shana Grimaldo I, PA [address] [phone] Health Maintenance Due Date Last Done Comments Depression Screening 1957 DTaP,Tdap and Td Vaccines (1 - Tdap) 05/26/1964 Fall Risk Screening 2009 COVID-19 Vaccine (2023-2 5 season) 2023 11/10/2022, 06/06/2021, 01/02/2021, Additional history exists Influenza Vaccine 10/16/2024 09/29/2021, , 10/12/2019, Additional history exists Tobacco Screening 07/26/2025 07/26/2024 Zoster (Shingles) Vaccine Completed 10/29/2022, Medical Devices Not on file Procedures Procedure Name Priority Date/Time Associated Diagnosis Comments PM AMB POCT URINALYSIS AUTO, W/O MICROSCOPY Routine 07/26/2024 11:30 AM EDT Microscopic hematuria from Last 3 Months Results * POCT Urinalysis Auto, W/O Microscopy [...] ORDERABL ES Final Result MANUALLY TRANSCRIBED RESULTS from Last 3 Months Insurance [employer] MEDICARE Care Teams Interior Design Program Chair Relationship Specialty Start Date End Date Cristian Hung MD PCP - General Family Medicine 09/07/23
--- OUTSIDE RECORDS SUMMARY | 2024-08-02 11:56 | XMS_ITS | Encounter Summary ---
Author Organization [employer] Address [id number] [address] [place] [address] Care Team Providers Care Woods Rider Name Role Phone Cristian Hung MD Primary Care Provider [phone] Encounter Details Date Type Department Care Team (Late st Contact Info) Description 10/09/2021 Telephone [facility] [address] [place] [phone] Shana Grimaldo PA [address] [place], [place] [phone] Social History Tobacco Use Types Packs/Day Years Used Date Smoking Tobacco: Never Smokeless Tobacco: Never Alcohol Use Standard Drinks/Week Comments No 0 (1 standard drink = 0.6 oz pur e alcohol) Childcare Answer Date Recorded Childcare Unknown 07/27/2018 Employment Answer Date Recorded Employment Unknown 07/27/2018 Purpose - Life Answer Date Recorded Purpose and direction in life Unknown Comments No Sex and Gender Information Value Date Recorded Sex Assigned at Not on file Legal Sex Female 11:31 AM EDT Gender Identity Not on file Sexual Orientation Not on file COVID-19 Exposure Response Date Recorded In the last month, have you been in contact with someone who was confirmed or suspected to have Coronavirus / COVID-19? No / Unsure 10/08/2021 12:01 PM EDT documented as of this encounter Miscellaneous Notes * Telephone Encounter - ADRIANNA Carter - 10/09/2021 8:08 AM EDT She needed some additional Trimosan gel. I am sending a few boxes with [employer]. When she gives them to you, would you please call the patient and have her come and belt picker one of the boxes. If you haveany room I would like to store the other two boxes up there for future use. Thank you * Telephone Encounter - Tiffany Daniel LPN - 10/09/2021 8:08 AM EDT Yes I can do that. Thank you. documented in this encounter Plan of Treatment Upcoming Encounters Date Type Department Care Team (Late st Contact Info) Description 11/08/2024 10:45 AM EDT Office Visit [facility] [address] [place] [address] [place] [address] Shana Grimaldo PA [facility] [place] [place] [address] documented as of this encounter Visit Diagnoses Not on filedocumented in this encounter Care Teams Woods Rider Relationship Specialty Start Date End Date Cristian Hung MD PCP - General Family Medicine 09/07/23 documented as of this encounter
--- OUTSIDE RECORDS SUMMARY | 2024-08-02 11:56 | XMS_ITS | Patient Health Record ---
Author Organization Formerly [facility] vices Address [address], [place] [id number] Care Team Providers Care Couture Dressmaker Name Role Phone Jennifer Yeh Unavailable [phone] Allergies Allergen (clinical drug ingredient) Drug/Non Drug Allergy documented on EMR Reaction Allergy Type Onset Date Status SEASONAL ALLERGIES (uncoded) Cough Comments: Congestion Allergy Active tramadol traMADol HCl Nausea Comments: Passed out. Drug Allergy Active Reason For Referral No Information Medications Medication SIG (Take, Route, Frequency, Duration) Notes Start Date End Date Status Amoxicillin 500 MG 1 capsule Orally every 8 hrs for 5 days 04/19/2023 Not-Taking Tylenol Active Dicyclomine HCl 06/01/2022 Not -Taking Acetaminophen-Codeine 300-30 MG 1 tablet as needed Orally every 6 hrs for 2 days 03/01/2023 Not-Taking Acetaminophen-Codeine 300-30 MG 1 tablet as needed Orally every 6 hrs for 2 days No additional Tylenol 03/01/2023 Not-Taking Acetaminophen-Codeine 300-30 MG 1 tablet as needed Orally every 6 hrs for 2 days Please offer generic brand if available 03/01/2023 Not-Taking Amoxicillin 500 MG 1 capsule Orally every 8 hrs for 5 days 06/30/2023 Not-Taking Chlorhexidine Gluconate 0.12 % Rinse for 30 seconds and spit out excess. Do not swallow Mouth/Throat 2 times a day for 30 days 04/19/2023 Not-Taking Meloxicam 06/01/2022 Not-Takin g Simvastatin 06/01/2022 Not-Billy ing Amitriptyline HCl 06/01/2022 N ot-Taking Amoxicillin 500 MG 1 capsule Orally every 8 hrs for 5 days Please offer generic brand if available 03/01/2023 Not-Taking Amoxicillin 500 MG 1 capsule Orally every 8 hrs for 7 day(s) 03/17/2023 Not-Taking Social History Tobacco Use: Social History Observation Description Date Details (start date - stop date) Never Smoker NA - NA Sex Assigned At : Social History Observation Description Sex Assigned At Female Tobacco Use/Smoking Question Answer Notes Tobacco use: nonsmoker PRAPARE Question Answer Notes Date Completed/Updated: 03/17/2023 rohite nt entered data What is your current housing situation? I choose not to answer this question patient entered data Are you worried about losing your housing? No patient entered data What is the highest level of school that you have finished? Less than a high school degree patient entered data What is your current work situation? Otherwise unemployed but not seeking work (ex. 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 Check all that apply I do not have problems meeting my needs patient entered data Has lack of transportation k ept you from medical appointments, meetings, work or from getting things needed for daily living? No patient entered andry a How often do you see or talk to people that you care about and feel close to? (For example: talking to friends on the phone, visiting friends or family, going to scientologist or club meetings) 1 or 2 times a week patient entered data In the past year have you sp ent more than 2 nights in a row in a correction, senior living, fpc center, or juvenile correctional facility? No patient entered data Do you feel physically and emotionally safe where you currently live? Yes patient entered data Are you a refugee? 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) Active confirmed Problem Overactive bladder (629924121) Overactive bladder (N32.81) Active confirmed Comment:has bee n stable on these meds, refilled, Problem Screening for malignant neoplasm of breast (891969652) Encounter for screening mammogram for malignant neoplasm of breast (Z12.31) Active confirmed Description: [place] unter for screening mammogram for breast cancer Problem Abnormal ECG (571173642) Abnormal ECG (R94.31) Active confirmed Comment:ECG shows RBBB + LBBB, also possible RA enlargement based on this + murmur at last appt + dizziness will order echo for further eval., Problem Generalized abdominal pain (281087492) Diffuse abdominal pain (R10.84) Active confirmed Comment:Persiste nt issue, unclear if r/t untreated gastritis although from what patient remembered she not think omeprazole was helping. Restarted omeprazole regardless d/t presence of gastritis. Discussed benefit of having GI consult since her abdominal pain has persisted even after trying other medications previously, she is now agreeable & will restart referral. uptodate on colonoscopy & EGD., Problem Dizziness (839404706) Dizziness (R42) Active confirmed Comment:-dizzine ss in the past week -no obvious source found from history or PE, blood sugar WNL, pt unable to give urine sample so will have checked w/ other labs -vitals WNL and no irregular pulse palpated/auscult , but will get ECG -depending on results will treat if test shows obvious cause -if no clear results will treat symptomatically, Problem Gastroesophageal reflux disease (876509304) GERD (gastroesophage al reflux disease) (K21.9) Active confirmed Comment:Advised need to continue omeprazole daily r/t findings of gastritis on EGD. PVU. Re-sent.,Story:H x. gastritis/ H. Pylori, Problem Screening (285859273) Screening (Z13.9) Active confirmed Problem Hyperlipidemia (71799412) Hyperlipidemia (E78.5) Active confirmed Comment:Patient has stopped simvastatin d/t concern it could have increased bleeding risk w/ recent GI bleed. Previously cholesterol very well-controlled, will reassess and determine need to start alternative medication., Problem Depression screening (166513994) Screening for depression (Z13.31) Active confirmed Description:Dep r ession screening Problem Anemia (616537028) Anemia (D64.9) Active confirmed Problem Fatigue (92420586) Fatigue (R53.83) Active confirmed Comment:general fatigue per patient. vitals WNL on exam. ongoing murmur -- per cardio stable valvular dysfxn. check labwork - over a year since last bloodwork., Problem Disorder of female genital tract (336173515) History of vaginal sores (Z87.42) Active confirmed Comment:Recomme n d f/u with OB/ Hydraulic Specialist. RTO if sxs. persist or worsen or as previously scheduled., Problem Vaginitis (05202181) Vaginitis (N76.0) Active confirmed Comment:c/o itching, burning, discharge, small odor scant discharge noted on exam w/o odor will send affirm test for further eval., Problem Murmur (877380260) Murmur (R01.1) Active confirmed Comment:-murmur found on exam -was not present at previous exam -will check CBC based on not having any done for some time -need to get ECG results as pt completed couple wks ago -based on results decide further f/up, Problem Tricuspid regurgitation (002949220) Tricuspid regurgitation (I07.1) Active confirmed Problem Bowel incontinence (04018471) Bowel incontinence (R15.9) Active confirmed Comment:Will refer to GI for further evaluation and tx., Problem Hematuria (46295838) Hematuria (R31.9) Active confirmed Comment:per urine dip on exam, will send for lab analysis to confirm., Problem Multiple joint pain (20730244) Multiple joint pain (M25.50) Active confirmed Comment:-s/s and exam support osteoarthritis origin of joint pain -will continue w/ flexeril for now for sleeping -add tylenol arthritis for as needed w/ joint pains -enc'd to try ice and/or heat as well -can consider PT or ortho referral as needed depending on status at f/up, Problem Abnormal mammogram (930773243) Abnormal mammogram (R92.8) Active confirmed Comment:focal stromal asymmetry right breast - rec'd follow-up imaging., Problem Chest pain (17319092) Chest pain (R07.9) Active confirmed Comment:episodic chest pain, evaluation in ER did not show acute issue but will still order stress test to rule out any underlying abnormality. patient cannot tolerate treadmill test d/t issue with dizziness on treadmills so ordering lexiscan. advised patient on s/s to seek emergent medical attention., Problem Female cystocele (912908820) Female cystocele (N81.10) Active confirmed Comment:3rd degree noted on exam, no pain associated or urinary changes disc'd with patient, rec'd getting f/up appt w/ RACING SECRETARY AND HANDICAPPER to discuss mgmt PVU + plans to get appt w/ RACING SECRETARY AND HANDICAPPER, Problem Breast cancer screening (082572999) Encounter for screening mammogram for breast cancer (Z12.31) Active confirmed Problem Headache (20797663) Headache (R51.9) Active confirmed Comment:Recent issue w/ headaches, possibly r/t taking hyoscamine for weeks now. Advised to only use this as needed for stomach pain to avoid causing more side effects Can try ES tylenol as needed. Icing as needed. If any recurrence on daily basis or worsening despite treatment please RTC., Problem Abdominal pain (85663901) Abdominal pain (R10.9) Active confirmed Comment:lower abdominal pain. typically relieved after having BM> advised patient to track foods, see if any pattern associated with specific foods. encouraged to continue positive dietary changes. patient to try OTC probiotic as well., Problem Muscle pain (34510994) Muscle pain (M79.10) Active confirmed Comment:leg pain ongoing but not worsened. patient prefers not to try new medications, will take tylenol or muscle relaxer as needed for now., Problem Joint pain (17382963) Joint pain (M25.50) Active confirmed Comment:back, legs having pain recently. also in knees, shoulders at times per patient. discussed most likely arthritis based on locations. will check labs to r/o systemic inflammation. trial meloxicam for anti-inflammatio n. depending on response should have imaging done at f/up., Problem Patient encounter procedure (440431087) Encounter to establish care (Z76.89) Active confirmed Comment:gen well, no major complaints needs some meds refilled, Problem Rectal bleeding (95468687) Rectal bleeding (K62.5) Active confirmed Comment:Need to review full hospital report to find cause, determine further follow-up. Per medication list patient has from hospital supposed to be taking iron & folic acid supplement, will send to pharmacy. Advised to complete antibiotics & omeprazole, unclear if upper GI issue or diverticulitis w/ bleed possibly. Will review report, assess if patient needs to make appt with general surgeon., Problem Leukopenia (86387120) Leukopenia (D72.819) Active confirmed Comment:found on recent lab, will reassess as never previously low will also check DELBERT. ESR and CRP were both normal on recent labs., Problem Gastritis (4684700) Gastritis (K29.70) Active confirmed Comment:Diagnos e d per EGD> Advised per general surgeon recommendation to continue omeprazole indefinitely. Will prescribe refills. Encouraged to continue positive dietary changes to limit sugary foods, greasy/fried foods, spicy foods., Problem Pain in limb (39400836) Leg pain, bilateral (M79.604) Active confirmed Comment:Persiste nt pain in legs, thigh area. XR of lumbar spine & SI joint shows mild degenerative changes. will continue muscle relaxer, tylenol as needed. advised can try icy/hot, heating pad, massaging muscles. have to avoid NSAIDs with recent hx of GI bleed., Problem Sinusitis (74854244) Sinusitis (J32.9) Active confirmed Comment:Discusse d likely allergic etiology of patient's symptoms and non-indications for abx use. Will treat patient symptomatically at this time. Rest and increase fluids. 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 and Encounter for dental examination and cleaning with abnormal findings Z01.21 Dental Main [address] [place] [address], [place] [id number] 01/05/2024 Jennifer Yeh Other specified disorders of teeth and supporting structures K08.8 Dental Main [address] [place] [address], [place] [id number] 01/12/2024 Jennifer Richardford Other specified disorders of teeth and supporting structures K08.8 Dental Main [address] [place] [address], [place] [id number] 01/26/2024 Jennifer Yeh Other specified disorders of teeth and supporting structures K08.8 Dental Main [address] [place] [address], [place] [id number] 02/02/2024 Jennifer Richardford Other specified disorders of teeth and supporting structures K08.8 Dental Main [address] [place] [address], [place] [id number] 02/23/2024 Jennifer Yeh Other specified disorders of teeth and supporting structures K08.8 Dental Main [address] [place] [address], [place] [id number] 03/22/2024 Jennifer Yeh Other specified disorders of teeth and supporting structures K08.8 Dental Main [address] [place] [address], [place] [id number] 04/12/2024 Jennifer Yeh Other specified disorders of teeth and supporting structures K08.8 Dental Main [address] [place] [address], [place] [id number] 04/19/2024 Jennifer Yeh Other specified disorders of teeth and supporting structures K08.8 Dental Main [address] [place] [address], [place] [id number] 05/03/2024 Jennifer Yeh Other specified disorders of teeth and supporting structures K08.8 Assessments Encounter Date Diagnosis (ICD Code) Assessment Notes Treatment Notes Treatment Clinical Notes Section Notes 01/05/2024 Other specified disorders of teeth and supporting structures (ICD-10 - K08.8) 01/12/2024 Other specified disorders of teeth and supporting structures (ICD-10 - K08.8) 01/26/2024 Other specified disorders of teeth and supporting structures (ICD-10 - K08.8) 02/02/2024 Other specified disorders of teeth and supporting structures (ICD-10 - K08.8) 02/23/2024 Other specified disorders of teeth and supporting structures (ICD-10 - K08.8) 03/22/2024 Other specified disorders of teeth and supporting structures (ICD-10 - K08.8) 04/12/2024 Other specified disorders of teeth and supporting structures (ICD-10 - K08.8) 04/19/2024 Other specified disorders of teeth and supporting structures (ICD-10 - K08.8) 05/03/2024 Other specified disorders of teeth and supporting structures (ICD-10 - K08.8) 08/23/2023 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 Medicare Advantage [facility] [address] [address] [place] [phone] [id number] Alysha Gillette Self - patient is the insured 5 [facility] [address] [address] [place] [phone] [id number] Alysha Gillette Self - patient is the insured [facility] [address] [place] [id number] Alysha Gillette Self - patient is the insured 8 Medical (General) History Medical History History ICD Code Diverticulosis Gastroesophageal Reflux Disease Hyperlipidemia Surgical History Surgery Date(Month/Year) Hysterectomy EXTENSIVE HYSTERECTOMY Hospitalization History Reason Date(Month/Year) diverticulitis 2021
--- OUTSIDE RECORDS SUMMARY | 2024-08-02 11:57 | XMS_ITS | Encounter Summary ---
Author Organization [employer] [facility] [employer] Address [id number] [address] [place] [address] Care Team Providers Care Retail Pharmacy Merchandiser Name Role Phone Cristian Hung MD Primary Care Provider +-4 Encounter Details Date Type Department Care Team (Late st Contact Info) Description 05/21/2021 Telephone [facility] [address] [place] [phone] Shana Grimaldo PA [address] [place], [place] [id number] Social History Tobacco Use Types Packs/Day Years [...] Exposure Response Date Recorded In the last 10 days, have yo u been in contact with someone who was confirmed or suspected to have Coronavirus/COVID-19? No / Unsure 05/21/2021 11:51 AM EDT documented as of this encounter Miscellaneous Notes * Telephone Encounter - ADRIANNA Carter - 05/21/2021 12:37 PM EDT Please schedule her for a cystoscopy under local with Dr. Cox in [place]. Dx: microscopic hematuria * Telephone Encounter - Smithaashleigh Burris - 05/21/2021 12:37 PM EDT COVID VACCINATED & BOOSTERED CYSTO-07/08/21@8AM PPWRK GIVEN IN OFFICE documented in this encounter Plan of Treatment Upcoming Encounters Date Type Department Care Team (Late st Contact Info) Description 11/08/2024 10:45 AM EDT Office Visit [facility] [address] [place] [address] [address] [place] [address] Shana Grimaldo PA [facility] [place] [address] documented as of this encounter Visit Diagnoses Not on filedocumented in this encounter Care Teams Retail Pharmacy Merchandiser Relationship Specialty Start Date End Date Cristian Hung MD PCP - General Family Medicine 09/07/23 documented as of this encounter
--- OUTSIDE RECORDS SUMMARY | 2024-08-02 11:57 | XMS_ITS | Encounter Summary ---
Author Organization [employer] Address [id number] [address] [place] [address] Care Team Providers Care Information Systems Security Specialist Name Role Phone Cristian Hung MD Primary Care Provider +-4 Encounter Details Date Type Department Care Team (Late st Contact Info) Description 07/08/2021 Telephone [facility] [address] [place] [phone] Terry Cox MD [address] [place] [id number] Social History Tobacco Use Types Packs/Day Years [...] suspected to have Coronavirus/COVID-19? No / Unsure 07/10/2021 10:17 AM EDT documented as of this encounter Miscellaneous Notes * Telephone Encounter - Terry Cox MD - 07/08/2021 8:14 AM EDT She underwent cysto today. She was supposed to get a CT urogram but did not. Can you get that arranged a follow-up with Shana to review. She would like to get taught a little further on care of her pessary * Telephone Encounter - Smitha Burris - 07/08/2021 8:[address] Cox, Patient states she does not need an appt for her pessary, how would you like her to f/u? Please advise, thank you! Smitha MORIN IS SCHEDULED FOR CT ON 07/22/21. * Telephone Encounter - Terry Cox MD - 07/08/2021 8:14 AM EDT She needs a followup with me ro Shana to review the ct * Telephone Encounter - Smitha Burris - 07/08/2021 8:14 AM EDT CALLED 07/22/21-NO VM * Telephone Encounter - Smitha Burris - 07/08/2021 8:14 AM EDT CALLED 07/24/21-NO VM * Telephone Encounter - Smitha Burris - 07/08/2021 8:14 AM EDT CALLED 08/08/21-NO VM * Telephone Encounter - Smitha Burris - 07/08/2021 8:[address] Cox, I have not been able to contact pt for a CT f/u. Please advise, thank you! Smitha * Telephone Encounter - ADRIANNA Carter - 07/08/2021 8:14 AM EDT Let's send her a letter. She is due for pessary maintenance with me as well * Telephone Encounter - Smitha Burris - 07/08/2021 8:14 AM EDT PRINTED-TO BE MAILED documented in this encounter Plan of Treatment Upcoming Encounters Date Type Department Care Team (Late st Contact Info) Description 11/08/2024 10:45 AM EDT Office Visit [facility] [address] [place] [address] [place] [phone] Shana Grimaldo PA [address] [place] [id number] documented as of this encounter Visit Diagnoses Not on filedocumented in this encounter Care Teams Information Systems Security Specialist Relationship Specialty Start Date End Date Cristian Hung MD PCP - General Family Medicine 09/07/23 documented as of this encounter
--- NOTE | 2024-08-02 14:15 | ED.GENADUL1 ---
HPI HPI - General Adult General Chief complaint: Abdominal Pain Stated complaint: DENTAL PAIN Time Seen by Provider: 08/02/24 14:11 Source: patient Mode of arrival: walk-in Limitations: no limitations History of Present Illness HPI narrative: Patient is a 79-year-old female who is presenting to the ER today with chief complaint lower abdominal pressure, vaginal pain and discomfort. Patient is here because she states she has some type of red balloon inside her vagina that she wants removed. Patient's PCP is Dr. Hung. Patient's [employer]ER is Dr. Balbuena. Patient has a urologist in [place], she does not know the name of the office nor the doctor nor the phone number. Patient states she has a history of urinary incontinence. Patient states she has a device that is stuck inside her vagina to help decrease urination. Patient states she is also been constipated. Patient had significant amount of bowel movements last week. Patient has not had a bowel movement in the last 5 to 6 days if not longer. Patient has no fever. No nausea vomiting. Patient is here because she wants her device removed. All systems are negative except as noted/marked. All systems reviewed and otherwise negative. Nurses note and vital signs reviewed and patient is not hypoxic. General: The patient appears well and in no apparent distress. Patient is resting comfortably on cart. Patient is not toxic, lethargic, or listless Skin: Warm, dry, no pallor noted. There is no rash noted. No petechiae, purpura. Head: Normocephalic, atraumatic Eye: Normal conjunctiva, no drainage, EOMI. PERRL Ears, Nose, Mouth, and Throat: oral mucosa is moist. Nares patent. Mouth without vesicles. Cardiovascular: Regular Rate and Rhythm, no murmur, gallop, rub Respiratory: Patient is in no distress, no accessory muscle use, lungs are clear to auscultation, no wheezing, rales or rhonchi Back: Mild tenderness palpation to bilateral lower lumbar spine, chronic, no rash, no abscess; the rest of her back is non-tender, no CVA tenderness bilaterally to percussion. No CT LS midline pain GI: no tenderness to palpation, no masses appreciated. No rebound, guarding, or rigidity noted. No distention : Exam will be done with Virginia HOOPER at bedside. Musculoskeletal: Patient has full range of motion of all of the extremities, no motor, sensory, or focal neurological deficits Neurological: A&O x4, normal speech Psychiatric: Cooperative, patient is not a good historian, patient rambles and tells the same story several times about all the different doctors visits and procedures that have been done but none of which truly makes sense to myself or Virginia RN Related Data Home Medications ?Medication ?Instructions ?Recorded ?Confirmed No Known Home Medications 12/21/23 12/21/23 Allergies Allergy/AdvReac Type Severity Reaction Status Date / Time No Known Drug Allergies Allergy Verified 08/02/24 11:54 Opioid HPI Opioid Management Most Recent Opioid Data: Last Pain Scale 4 Today, 11:54 PFSH PFSH Medical History (Updated 08/02/24 @ 14:15 by Placido Hoyos MD) GERD (gastroesophageal reflux disease) ?K21.9 - Gastro-esophageal reflux disease without esophagitis (ICD-10) High cholesterol ?E78.00 - Pure hypercholesterolemia, unspecified (ICD-10) Chest pain ?R07.9 - Chest pain, unspecified (ICD-10) Surgical History (Updated 01/13/23 @ 15:37 by Suzie Sandhu) H/O: hysterectomy ?Z90.710 - Acquired absence of both cervix and uterus (ICD-10) Family History (Updated 01/13/23 @ 15:40 by Suzie Sandhu) Father Family history of myocardial infarction Mother Family history of stroke Social History (Updated 01/13/23 @ 15:41 by Suzie Sandhu) Within the past year, how often did you have a drink containing alcohol: never Score interpretation: A score less than 3 is consistent with normal alcohol consumption. Smoking status: Never smoker Non-prescribed substance use: denies use Previous occupational history: retired Highest level of school completed/degree received: 11th grade Are you now , , , , never or living with a partner: Little interest or pleasure in doing things: not at all Feeling down, depressed, or hopeless: not at all Feel stressed/tense/nervous/anxious/difficulty sleeping: only a little Due to disability, difficulty making decisions: No Do you think of yourself as: straight/heterosexual Exam Constitutional Vital Signs, click to edit/add: Last Vital Signs Temp 98.7 F 08/02/24 11:54 Pulse 69 08/02/24 14:22 Resp 16 08/02/24 14:22 BP 156/89 H 08/02/24 14:22 Pulse Ox 99 08/02/24 14:22 O2 Del Method Room Air 08/02/24 14:22 Course Vital Signs Vital signs: Vital Signs Temperature 98.7 F 08/02/24 11:54 Pulse Rate 70 08/02/24 11:54 Respiratory Rate 20 08/02/24 11:54 Blood Pressure 163/77 H 08/02/24 11:54 Pulse Oximetry 99 08/02/24 11:54 Oxygen Delivery Method Room Air 08/02/24 11:54 Temperature 98.7 F 08/02/24 11:54 Pulse Rate 69 08/02/24 14:22 Respiratory Rate 16 08/02/24 14:22 Blood Pressure 156/89 H 08/02/24 14:22 Pulse Oximetry 99 08/02/24 14:22 Oxygen Delivery Method Room Air 08/02/24 14:22 Medical Decision Making MDM Narrative Medical decision making narrative: We have been calling patient's urology office, they have been closed during the office lunchtime of 12 to 1 PM. We called urology office at 1:10 PM, no answer, we left a message. The urology office called back, and stated that we could probably take the pessary that is in place with 1 or 2 fingers. Patient can also go to the urology office in [place] today and they will examine her and take it out if needed. This information was given to the patient, patient cannot go to [place] today. Patient wants us to attempt to take out the pessary today. Patient was educated the small red area of swelling is a small cyst/area of granuloma, area of swelling at the urethral meatus, and that is not the device that she is concerned about. Patient wants me to do a digital vaginal exam, and attempt to take out the pessary if possible. EXAM: Virginia RN was at bedside during entire examination and procedure. Patient's external vaginal area shows no acute findings, no cyst, no abscess. Patient does have a small area of redness, swelling, approximately 2 x 1 mm that is at her urethral meatus. With 2 packets of lubrication, 1 finger and then 2 finger was inserted to the vaginal canal. I did feel a large hard device that I was able to put my 2 fingers around and pull out. There did not appear to be any significant suction to her cervix or vaginal wall while doing this. Patient did have some discomfort when it was pulled out, but then when was pulled out she did have relief. Patient was very thankful for removal. Patient said that she could take this home and give it back to urology office to have it placed again. Patient tolerated procedure with no complications. No bleeding. Patient will be discharged. Discharge Plan Discharge Chief Complaint: Abdominal Pain Clinical Impression: Vaginal pain, Constipation Patient Disposition: Home, Self-Care Time of Disposition Decision: 14:13 Condition: Fair Mode of Transportation: Private Vehicle Prescriptions / Home Meds: No Action No Known Home Medications Print Language: Kinyarwanda Instructions: Constipation (ED), Pelvic Pain in Women (ED) Additional Instructions: Your pessary has been removed in the ER. It has been given back to you to take home as well. Follow-up with urology. For constipation, use MiraLAX twice a day for the next 2 or 3 days to help with soft stool production. Use 1 bottle of magnesium citrate today and 1 bottle of magnesium citrate tomorrow if needed for stool production. Increase fluids, prune juice, apple juice, Gatorade, Powerade. Follow-up with PCP and [employer]ER as needed as well. Referrals: Cristian Hung MD [Primary Care Provider, Family Practice] - 1 week Discharge Date/Time: 08/02/24 14:22
[2024-08-02 14:22] VITALS: BP 156/89; PULSE 69; O2SAT 99
== END 2024-08-02 14:22 | disposition home or self-care (01) ==
PROVIDERS: Emergency Provider Emergency Medicine; PCP Family Medicine
DX: R10.84 Generalized abdominal pain (principal); R10.2 Pelvic and perineal pain; K59.00 Constipation, unspecified; Z96.0 Presence of urogenital implants
CPT/HCPCS: 99282

== ENCOUNTER 2024-09-22 11:52 | Emergency (ER) | payer MEDICARE, SELFPAY ==
[2024-09-22 11:57] VITALS: BP 171/105; PULSE 91; TEMP 36.8; O2SAT 98; BMI 25.7
--- NOTE | 2024-09-22 12:17 | ED.GENADUL1 ---
HPI HPI - General Adult General Chief complaint: Vaginal Bleeding Stated complaint: VAGINAL BLEED Time Seen by Provider: 09/22/24 11:55 Source: patient Mode of arrival: walk-in Limitations: no limitations History of Present Illness HPI narrative: 79-year-old female presents to the emergency department for a chief complaint of bleeding from her vagina. She noticed it after wiping after she urinated this morning. 1 or 2 weeks ago she had a pessary placed. No abdominal pain and no fever. There is been no injury. Related Data Home Medications ?Medication ?Instructions ?Recorded ?Confirmed No Known Home Medications 12/21/23 12/21/23 Allergies Allergy/AdvReac Type Severity Reaction Status Date / Time No Known Drug Allergies Allergy Verified 08/02/24 11:54 Opioid HPI Opioid Management Most Recent Opioid Data: Last Pain Scale 6 Today, 11:57 Review of Systems ROS Narrative A ten point review of systems is negative except as noted above. [facility] Medical History (Updated 09/22/24 @ 14:00 by Jaden Watkins MD) GERD (gastroesophageal reflux disease) ?K21.9 - Gastro-esophageal reflux disease without esophagitis (ICD-10) High cholesterol ?E78.00 - Pure hypercholesterolemia, unspecified (ICD-10) Chest pain ?R07.9 - Chest pain, unspecified (ICD-10) Surgical History (Updated 01/13/23 @ 15:37 by Suzie Sandhu) H/O: hysterectomy ?Z90.710 - Acquired absence of both cervix and uterus (ICD-10) Family History (Updated 01/13/23 @ 15:40 by Suzie Sandhu) Father Family history of myocardial infarction Mother Family history of stroke Social History (Updated 01/13/23 @ 15:41 by Suzie Sandhu) Within the past year, how often did you have a drink containing alcohol: never Score interpretation: A score less than 3 is consistent with normal alcohol consumption. Smoking status: Never smoker Non-prescribed substance use: denies use Previous occupational history: retired Highest level of school completed/degree received: 11th grade Are you now , , , , never or living with a partner: Little interest or pleasure in doing things: not at all Feeling down, depressed, or hopeless: not at all Feel stressed/tense/nervous/anxious/difficulty sleeping: only a little Due to disability, difficulty making decisions: No Do you think of yourself as: straight/heterosexual Exam Narrative Exam Narrative: Nurses note and vital signs reviewed and patient is not hypoxic. General: The patient appears well and in no apparent distress. Patient is resting comfortably on cart. Skin: Warm, dry, no pallor noted. There is no rash noted. Head: Normocephalic, atraumatic Eye: Normal conjunctiva, no drainage Ears, Nose, Mouth, and Throat: oral mucosa is moist. Nares patent. Mouth without vesicles. Ear canals patent. Tm's without Erythema Cardiovascular: Regular Rate and Rhythm Respiratory: Patient is in no distress, no accessory muscle use, lungs are clear to auscultation, no wheezing, rales or rhonchi Back: non-tender GI: Soft and nontender Musculoskeletal: The patient has no evidence of calf tenderness, no pitting edema, symmetrical pulses noted bilaterally Neurological: Awake and alert Psychiatric: Cooperative Constitutional Vital Signs, click to edit/add: Last Vital Signs Temp 98.2 F 09/22/24 11:57 Pulse 91 H 09/22/24 11:57 Resp 20 09/22/24 11:57 BP 171/105 H 09/22/24 11:57 Pulse Ox 98 09/22/24 11:57 O2 Del Method Room Air 09/22/24 11:57 Course Vital Signs Vital signs: Vital Signs Temperature 98.2 F 09/22/24 11:57 Pulse Rate 91 H 09/22/24 11:57 Respiratory Rate 20 09/22/24 11:57 Blood Pressure 171/105 H 09/22/24 11:57 Pulse Oximetry 98 09/22/24 11:57 Oxygen Delivery Method Room Air 09/22/24 11:57 Temperature 98.2 F 09/22/24 11:57 Pulse Rate 91 H 09/22/24 11:57 Respiratory Rate 20 09/22/24 11:57 Blood Pressure 171/105 H 09/22/24 11:57 Pulse Oximetry 98 09/22/24 11:57 Oxygen Delivery Method Room Air 09/22/24 11:57 Medical Decision Making MDM Narrative Medical decision making narrative: Urinalysis does not show evidence of UTI. I spoke to ADRIANNA Chavez for the urologist office that placed the pessary. She recommends removal of the pessary and the patient will be seen in that office in 5 days. Treatment diagnosis and follow-up were discussed with the patient. I have removed the pessary without any difficulty. No subsequent bleeding. Lab Data Lab results reviewed: Yes I reviewed the patient's lab results Labs: Lab Results 09/22/24 Range/Units 12:20 Urine Color Lt. yellow (YELLOW) Urine Clarity Clear (CLEAR) Urine pH 6.0 (5.0-9.0) Ur Specific [place] 1.020 (1.005-1.025) Urine Protein Negative (NEG/TRACE) mg/dL Urine Glucose (UA) Negative (NEGATIVE) mg/dL Urine Ketones Negative (NEGATIVE) mg/dL Urine Occult Blood Moderate A (NEGATIVE) Urine Nitrite Negative (NEGATIVE) Urine Bilirubin Negative (NEGATIVE) Urine Urobilinogen 0.2 (0.2-1.0) EU/dL Ur Leukocyte Esterase Negative (NEGATIVE) Urine RBC 5-10 A (0-2) #/HPF Urine WBC 0-2 A (NONE SEEN) #/HPF Ur Squamous Epith Cells Rare (NONE/RARE) #/LPF Urine Crystals None seen (None Seen) #/HPF Urine Bacteria Trace A (NONE SEEN) #/HPF Urine Casts None seen (NONE SEEN) #/LPF Urine Mucus None seen (NONE SEEN) Discharge Plan Discharge Chief Complaint: Vaginal Bleeding Clinical Impression: Vaginal bleeding Patient Disposition: Home, Self-Care Time of Disposition Decision: 13:58 Condition: Good Mode of Transportation: Private Vehicle Prescriptions / Home Meds: No Action No Known Home Medications Print Language: Portuguese Instructions: Abnormal (Dysfunctional) Uterine Bleeding (ED) Additional Instructions: Shana Grimaldo's office will call you to be seen on Wednesday, September 27. Referrals: Cristian Hung MD [Primary Care Provider, Family Practice] - 1 week
[2024-09-22 12:29] LABS: Glucose Urine UA NEGATIVE (NEGATIVE)
--- OUTSIDE RECORDS SUMMARY | 2024-09-22 12:41 | XMS_ITS | CCD ---
Author Organization [facility] Inform ion [facility] Care Team Providers Care Office Mover Name Role Phone JOSÉ LUIS ., DR GIBSON Admitting Unavailable JOSÉ LUIS ., DR GIBSON Attending Unavailable JOSÉ LUIS ., DR GIBSON Primary Care Unavailable JOSÉ LUIS ., DR GIBSON Consulting Unavailable MAURICE, DR SANIYA Theodore Consulting Unavailable JORGE ., DR XIONG Admitting Unavailable JORGE ., DR XIONG Attending Unavailable EDUARY ., DR GIBSON Primary Care Unavailable JORGE ., DR XIONG Consulting Unavailable RADHA, DR PINKY Osborn Consulting Unavailable JOSÉ LUIS ., DR GIBSON Primary Care Unavailable SONALI ., MONICA Admitting Unavailable SONALI ., MONICA Attending Unavailable SONALI Menendez, MONICA Consulting Unavailable Saniya Victor Consulting Unavailable SAIRA VAUGHAN Consulting Unavailable JOSÉ LUIS ., DR GIBSON Primary Care Unavailable STEPHANIE ., CECILLE Admitting Unavailable STEPHANIE .CECILLE Attending Unavailable STEPHANIE ., CECILLE Consulting Unavailable JOSÉ LUIS Menendez, DR GIBSON Primary Care Unavailable JOSEF VELEZ Admitting Unavailable JOSEF VELEZ Attending Unavailable RADHA, DR PINKY Osborn Consulting Unavailable JOSEF VELEZ Consulting Unavailable PAIGE HUNG Primary Care Unavailable KIRBY FAJARDO Attending Unavailable PAIGE HUNG Primary Care Unavailable Paige Hung MD Primary Care Provider [phone] SHANA GRIMALDO I Attending Unavailable PAIGE HUNG Referring Unavailable PAIGE HUNG Primary Care Unavailable SHANA GRIMALDO I Attending Unavailable PAIGE HUNG Referring Unavailable PAIGE HUNG Primary Care Unavailable Medications Current Medications Medication Drug Class(es) Dates Sig (Normalized) Sig (Original) dicyclomine hydrochloride 10 mg oral capsule (3 sources) Anticholinergic take 1 capsule by mouth four times daily before mealtime dicyclomine (BENTYL) 10 mg capsule Take 1 capsule (10 mg total) by mouth 4 (four) times a day before meals and nightly. Active meloxicam 7.5 mg oral tablet (3 sources) Nonsteroidal Anti-inflammatory Drug take 1 tablet by mouth in the morning meloxicam (MOBIC) 7.5 mg tablet Take 1 tablet (7.5 mg total) by mouth in the morning. Active omeprazole 40 mg delayed release oral capsule (3 sources) Proton Pump Inhibitor Start: 02-09-2019 take 1 capsule by mouth in the morning omeprazole (PriLOSEC) 40 mg capsule Take 1 capsule (40 mg total) by mouth in the morning. 02/09/2019 Active simvastatin 20 mg oral tablet (3 sources) HMG-CoA Reductase Inhibitor take 1 tablet by mouth once daily simvastatin (ZOCOR) 20 mg tablet Take 1 tablet (20 mg total) by mouth nightly. Active Problems Active Problems Problem Classification Problem Date Documented Date Episodic/Chronic Disorders of lipid metabolism (1 source) Pure hypercholesterolemia, unspecified; Translations: [PURE HYPERCHOLESTEROLEMIA UNSPEC] Onset: 3 Chronic Essential hypertension (1 source) Essential (primary) hypertension; Translations: [ESSENTIAL PRIMARY HYPERTENSION] Onset: 3 Chronic Genitourinary symptoms and ill-defined conditions (9 sources) Microscopic hematuria; Translations: [Other microscopic hematuria] Onset: 2 07-26-2024 Episodic Headache; including migraine (1 source) Headache; including migraine; Translations: [HEADACHE UNSPECIFIED] Onset: 2 Heart valve disorders (3 sources) Non-rheumatic mitral regurgitation ; Translations: [Nonrheumatic mitral (valve) insufficiency] Onset: 8 07-14-2017 Chronic Other female genital disorders (4 sources) Other specified conditions associated with female genital organs and menstrual cycle; Translations: [OTH SPEC COND FE GEN ORG MENST CYCL] Onset: 3 Episodic Other liver diseases (1 source) Fatty (change of) liver, not elsewhere classified; Translations: [FATTY CHANGE LIVER NEC] Onset: 3 Chronic Other nervous system disorders (1 source) Other chronic pain; Translations: [Other chronic pain] Onset: 5 Chronic Prolapse of female genital organs (5 sources) Prolapse of female genital organs; 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, unspecified] Onset: 2 07-26-2024 Chronic Unclassified (1 source) CONTACT W/AND (SUSP) EXPOS COVID-19; Translations: [CONTACT W/AND (SUSP) EXPOS COVID-19] Onset: 2 Unclassified (1 source) Pessary Care Onset: 5 Past or Other Problems Problem Classification Problem Date Documented Da te Episodic/Chronic Abdominal pain (7 sources) Lower abdominal pain, unspecified; Translations: [Unspecified abdominal pain] Onset: 01-31-2022 Episodic Headache; including migraine (1 source) Headache Onset: 09-07-2023 Episodic Nausea and vomiting (1 source) Nausea; Translations: [NAUSEA] Onset: 02-03-2022 Episodic Other aftercare (1 source) Other correction (current) drug therapy; Translations: [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 ROLL ICER MACHINE CURRENT DRUG THERAPY] Onset: 03-09-2022 Episodic Other connective tissue disease (2 sources) Pain in lower limb Onset: 09-07-2023 Episodic Other gastrointestinal disorders (1 source) Constipation, unspecified; Translations: [CONSTIPATION UNSPECIFIED] Onset: 03-09-2022 Episodic Other gastrointestinal disorders (3 sources) Diarrhea, unspecified; Translations: [DIARRHEA UNSPECIFIED] Onset: 08-22-2021 Episodic Other screening for suspected conditions (not mental disorders or infectious disease) (7 sources) Encounter for screening mammogram for malignant neoplasm of breast; Translations: [Electrocardiogra m abnormal] Onset: 07-14-2017 Episodic Residual codes; unclassified (1 source) Edema, unspecified; Translations: [Edema, unspecified] Onset: 09-07-2023 Episodic Urinary tract infections (1 source) Urinary tract infection, site not specified; Translations: [UTI SITE NOT SPECIFIED] Onset: 02-03-2022 Episodic Results Test Name Value Interpretation Reference Range Facil ity POCT Urinalysis Auto, W/O Mi croscopyon 07-26-2024 External Poct Urine Blood Trace [facility] External Poct Urine Glucose Negative [facility] External Poct Urine Ketones Negative [facility] External Poct Urine Leukocyte Esterase Negative [facility] External Poct Urine Nitrite Negative [facility] External Poct Urine Ph 5 [facility] External Poct Urine Protein Negative [facility] CBC AND AUTO DIFFon 09-07-19 ABSOLUTE BASOPHIL 0.0 X10E9/L Normal 0.0-0.2 [facility] Comment on above: Performed By: #### [place] SIMMONS, 60509-4, CMP, 95134-1 #### [facility] ([id number]) [address] [place] [address] 99936 ABSOLUTE NEUTROPHIL 1.9 X10E9/L Normal 1.5-6.6 [facility] Comment on above: Performed By: #### [place] SIMMONS, 58269-6, CMP, 12345-0 #### [facility] ([id number]) [address] [place] [address] 23198 Basophils/100 WBC (Bld) 0.8 % Normal [facility] Comment on above: Performed By: #### [place] SIMMONS, 62173-7, CMP, 96951-3 #### [facility] ([id number]) [address] [place] [address] 85167 Eosinophils (Bld) [#/Vol] 0.1 10*3/uL Normal 0.0-0.4 [facility] Comment on above: Performed By: #### [place] SIMMONS, 64060-5, CMP, 37661-6 #### [facility] ([id number]) [address] [place] [address] 95455 Eosinophils/100 WBC (Bld) 1.3 % Normal [facility] Comment on above: Performed By: #### [place] BCA, 46320-2, CMP, 05188-2 #### [facility] ([id number]) [address] [place] [address] 63850 Erythrocyte distribution width (RBC) [Ratio] 14.2 % Normal 11.5-15.0 [facility] Comment on above: Performed By: #### [place] SIMMONS, 93393-2, CMP, 78615-1 #### [facility] ([id number]) [address] [place] [address] 07299 Hematocrit (Bld) [Volume fraction] 34.7 % Low 35-47 [facility] Comment on above: Performed By: #### [place] SIMMONS, 27684-3, CMP, #### [facility] ([id number]) [address] [place] [address] 86748 Hemoglobin (Bld) [Mass/Vol] 11.4 g/dL Low 11.7-15.5 [facility] Comment on above: Performed By: #### [place] SIMMONS, 69418-2, CMP, 97691-3 #### [facility] ([id number]) [address] [place] [address] 74115 Lymphocytes (Bld) [#/Vol] 1.7 10*3/uL Normal 1.0-3.5 [facility] Comment on above: Performed By: #### eDnver SIMMONS, 00483-7, CMP, #### [facility] ([id number]) [address] [place] [address] 65429 Lymphocytes/100 WBC (Bld) 42.2 % Normal [facility] Comment on above: Performed By: #### [place] BCA, 33209-1, CMP, 02970-5 #### [facility] ([id number]) [address] [place] [address] 52677 MCH (RBC) [Entitic mass] 28.4 pg Normal 27-34 [facility] Comment on above: Performed By: #### [place] BCA, 50729-7, CMP, 59589-5 #### [facility] ([id number]) [address] [place] [address] 85964 MCHC (RBC) [Mass/Vol] 32.8 g/dL Normal 32-36 [facility] Comment on above: Performed By: #### [place] BCA, 90531-6, CMP, 86243-4 #### [facility] ([id number]) [address] [place] [address] 77452 MCV (RBC) [Entitic vol] 86 fL Normal 80-100 [facility] Comment on above: Performed By: #### [place] SIMMONS, 55175-1, CMP, 55966-9 #### [facility] ([id number]) [address] [place] [address] 31571 Monocytes (Bld) [#/Vol] 0.3 10*3/uL Normal 0-0.9 [facility] Comment on above: Performed By: #### [place] SIMMONS, 12831-3, CMP, 41262-7 #### [facility] ([id number]) [address] [place] [address] 47702 Monocytes/100 WBC (Bld) 7.1 % Normal [facility] Comment on above: Performed By: #### [place] SIMMONS, 01023-2, CMP, 45569-1 #### [facility] ([id number]) [address] [place] [address] 52210 Neutrophils/100 WBC (Bld) 48.6 % Normal [facility] Comment on above: Performed By: #### [place] SIMMONS, 53787-4, CMP, 30739-3 #### [facility] ([id number]) [address] [place] [address] 89657 Platelet mean volume (Bld) [Entitic vol] 6.8 fL Low 7-12 [facility] Comment on above: Performed By: #### [place] SIMMONS, 98279-4, CMP, 24443-7 #### [facility] ([id number]) [address] [place] [address] 43687 Platelets (Bld) [#/Vol] 370 10*3/uL Normal 150-450 [facility] Comment on above: Performed By: #### [place] SIMMONS, 06770-4, CMP, 14492-0 #### [facility] ([id number]) [address] [place] [address] 67189 RBC COUNT 4.02 X10E12/L Normal 3.80-5.20 [facility] Comment on above: Performed By: #### C BCA, 03758-4, CMP, 36215-0 #### [facility] ([id number]) [address] [place] [address] 85527 WBC (Bld) [#/Vol] 4.0 10*3/uL Normal 4.0-11.0 [facility] Comment on above: Performed By: #### C BCA, 03594-4, CMP, 13178-4 #### [facility] ([id number]) [address] [place] [address] 27215 COMPREHENSIVE METABOLIC PANE [facility] 09-07-2023 Albumin [Mass/Vol] 3.9 g/dL Normal 3.2-5.3 [facility] Comment on above: Performed By: #### C BCA, 99135-9, CMP, 24906-4 #### [facility] ([id number]) [address] [place] [address] 06280 ALP [Catalytic activity/Vol] 64 U/L Normal 39-130 [facility] Comment on above: Performed By: #### C BCA, 63285-3, CMP, 79033-2 #### [facility] ([id number]) [address] [place] [address] 09201 ALT [Catalytic activity/Vol] 14 U/L Normal 0-31 [facility] Comment on above: Performed By: #### C BCA, 31403-2, CMP, 55067-1 #### [facility] ([id number]) [address] [place] [address] 35738 Anion gap [Moles/Vol] 7 mmol/L Normal 5-15 [facility] Comment on above: Performed By: #### C BCA, 89848-6, CMP, 79271-3 #### [facility] ([id number]) [address] [place] [address] 75907 AST [Catalytic activity/Vol] 17 U/L Normal 0-41 [facility] Comment on above: Performed By: #### C BCA, 61051-1, CMP, 74920-9 #### [facility] ([id number]) [address] [place] [address] 57677 Bilirubin [Mass/Vol] 0.8 mg/dL Normal 0.3-1.2 [facility] Comment on above: Performed By: #### C BCA, 25218-0, CMP, 86641-8 #### [facility] ([id number]) [address] [place] [address] 76504 Calcium [Mass/Vol] 9.2 mg/dL Normal 8.5-10.5 [facility] Comment on above: Performed By: #### C BCA, 27168-2, CMP, 87663-1 #### [facility] ([id number]) [address] [place] [address] 02350 Chloride [Moles/Vol] 108 mmol/L Normal 98-109 [facility] Comment on above: Performed By: #### C BCA, 25794-2, CMP, 11227-9 #### [facility] ([id number]) [address] [place] [address] 86549 CO2 [Moles/Vol] 26 mmol/L Normal 22-32 [facility] Comment on above: Performed By: #### C BCA, 53741-7, CMP, 89903-0 #### [facility] ([id number]) [address] [place] [address] 17424 Creatinine [Mass/Vol] 0.78 mg/dL Normal 0.40-1.00 [facility] Comment on above: Result Comment: METH OD TRACEABLE TO IDMS STANDARD Performed By: #### C BCA, 35734-1, CMP, 71869-3 #### [facility] ([id number]) [address] [place] [address] 52866 GFR/1.73 sq M.predicted among non-blacks MDRD (S/P/Bld) [Vol rate/Area] 77 mL/min/{1.73_m2} Normal >59 [facility] Comment on above: Result Comment: Reported eGFR is based on the CKD-EPI 2020 equation that does not use a race coefficient. Performed By: #### C BCA, 41539-7, CMP, 21374-5 #### [facility] ([id number]) [address] [place] [address] 66820 Glucose [Mass/Vol] 109 mg/dL High 65-99 [facility] Comment on above: Performed By: #### C BCA, 93602-6, CMP, 48979-8 #### [facility] ([id number]) [address] [place] [address] 84304 Potassium [Moles/Vol] 4.0 mmol/L Normal 3.5-5.0 [facility] Comment on above: Performed By: #### C IRIS, 96241-1, CMP, 58841-5 #### [facility] ([id number]) [address] [place] [address] 07973 Protein [Mass/Vol] 7.0 g/dL Normal 6.0-8.0 [facility] Comment on above: Performed By: #### C BCA, 16523-7, CMP, 72954-1 #### [facility] ([id number]) [address] [place] [address] 32990 Sodium [Moles/Vol] 141 mmol/L Normal 134-146 [facility] Comment on above: Performed By: #### C BCA, 47612-0, CMP, 13152-0 #### [facility] ([id number]) [address] [place] [address] 77362 Urea nitrogen [Mass/Vol] 16 mg/dL Normal 5-27 [facility] Comment on above: Performed By: #### C BCA, 22723-8, CMP, 14155-2 #### [facility] ([id number]) [address] [place] [address] 65854 MAGNESIUMon 09-07-2023 Magnesium [Mass/Vol] 2.2 mg/dL Normal 1.8-2.6 [facility] Comment on above: Performed By: #### C BCA, 50497-8, CMP, 06515-9 #### [facility] ([id number]) [address] [place] [address] 14549 Natriuretic peptide B [Mass/ Vol]on 09-07-2023 Natriuretic peptide B (Bld) [Mass/Vol] 15 pg/mL Normal <100.0 [facility] Comment on above: Performed By: #### C BCA, 65041-3, CMP, 78100-9 #### [facility] ([id number]) [address] [place] [address] 18464 US PELVIS TRANSVAGon 023 US PELVIS TRANSVAG [...] by: PINKY GARCIA Date: 2022-06-15 15:37 Normal [facility] MG MAMM SCREEN 3D PHYLLIS CADon 02-23-2022 MG MAMM SCREEN 3D PHYLLIS CAD Patient: ALYSHA MOTRON Exam Date: 02/23/2022 : 1945 Gender:F Ordering : DR PAIGE HUNG . Admission #: [id number] Family : Order #: [id number] CLICK HERE TO VIEW EXAM RADIOLOGY REPORT [...] No Treatments None Family Cancers None LOCATION: [facility] BREAST COMPOSITION: Scattered areas fibroglandular density. FINDINGS: [...] MD on 02/24/2022 at 11:01 Normal [facility] CARDIAC ROLANDO ADMITon 022 CK [Catalytic activity/Vol] 87 U/L Normal 26-192 [facility] Comment on above: Performed By: #### C MADM LIPA, CMP #### [facility] [address] [address] [address] Suraj Choe CK.MB [Mass/Vol] 0.92 ng/mL Normal <=3.60 [facility] Comment on above: Performed By: #### C MADM, LIPA, CMP #### [facility] [address] [address] [address] Suraj Choe HSTROP 7.5 pg/mL Normal 4.0-51.3 [facility] Comment on above: Result Comment: CUT- OFF POINTS HAVE BEEN ESTABLISHED BASED ON THE FOURTH UNIVERSAL DEFINITIONS OF MYOCARDIAL INFARCTION. THE UPPER REFERENCE LIMIT (URL) OF TROPONIN, DEFINED THE 99TH PERCENTILE OF cTnI DISTRIBUTION IN A REFERENCE POPULATION, HAS BEEN CONFIRMED THE DECISION THRESHOLD FOR GA DIAGNOSIS. Performed By: #### C MADM, LIPA, CMP #### [facility] [address] [address] [address] Suraj Choe NICHOLAS 28 ng/mL Normal 9-82 [facility] Comment on above: Performed By: #### C MADM, LIPA, CMP #### [facility] [address] [address] [address] Suraj Choe CBC AUTO DIFFon 01-31-2022 BASO # 0.0 103/ul Normal 0.0-0.1 [facility] Comment on above: Performed By: #### C BC #### [facility] [address] [address] [address] Suraj Choe Basophils/100 WBC (Bld) 0.7 % Normal 0.2-2.0 [facility] Comment on above: Performed By: #### C BC #### [facility] [address] [address] [address] Suraj Choe EO # 0.1 103/ul Normal 0.0-0.7 [facility] Comment on above: Performed By: #### C BC #### [facility] [address] [address] [address] Suraj Choe Eosinophils/100 WBC (Bld) 1.4 % Normal 0.9-7.0 [facility] Comment on above: Performed By: #### C BC #### [facility] [address] [address] [address] Suraj Choe Erythrocyte distribution width (RBC) [Ratio] 14.2 % Normal 11.0-15.0 [facility] Comment on above: Performed By: #### C BC #### [facility] [address] [place] [address] Dr. Suraj hCoe Hematocrit (Bld) [Volume fraction] 38.6 % Normal 36.0-48.0 [facility] Comment on above: Performed By: #### C BC #### [facility] [address] [address] [address] Suraj Choe Hemoglobin (Bld) [Mass/Vol] 12.3 g/dL Normal 12.0-16.0 [facility] Comment on above: Performed By: #### C BC #### [facility] [address] [address] [address] Suraj Choe IG # 0.01 10e3/ul Normal 0.00-0.03 [facility] Comment on above: Performed By: #### C BC #### [facility] [address] [place] [address] Dr. Suraj Choe IG % 0.2 % Normal 0.0-0.5 [facility] Comment on above: Performed By: #### C BC #### [facility] [address] [place] [address] Dr. Suraj Choe LYMPH # 2.1 103/ul Normal 1.2-3.8 [facility] Comment on above: Performed By: #### C BC #### [facility] [address] [place] [address] Dr. Suraj Choe Lymphocytes/100 WBC (Bld) 50.7 % Normal 20.5-60.0 [facility] Comment on above: Performed By: #### C BC #### [facility] [address] [place] [address] Dr. Suraj Choe MANUAL DIFF REQ NO Normal [facility] Comment on above: Performed By: #### C BC #### [facility] [address] [place] [address] Dr. Suraj Choe MCH (RBC) [Entitic mass] 27.6 pg Normal 26.7-34.0 [facility] Comment on above: Performed By: #### C BC #### [facility] [address] [place] [address] Dr. Suraj Choe MCHC (RBC) [Mass/Vol] 31.9 g/dL Normal 29.9-35.2 [facility] Comment on above: Performed By: #### C BC #### [facility] [address] [place] [address] Dr. Suraj Choe MCV (RBC) [Entitic vol] 86.5 fL Normal 81.0-99.0 [facility] Comment on above: Performed By: #### C BC #### [facility] [address] [place] [address] Dr. Suraj Choe MONO # 0.3 103/ul Normal 0.3-0.8 [facility] Comment on above: Performed By: #### C BC #### [facility] [address] [address] [address] Suraj Choe Monocytes/100 WBC (Bld) 5.9 % Normal 1.7-12.0 [facility] Comment on above: Performed By: #### C BC #### [facility] [address] [address] [address] Suraj Choe NEUT # 1.7 103/ul Normal 1.4-6.5 [facility] Comment on above: Performed By: #### C BC #### [facility] [address] [address] [address] Suraj Choe Neutrophils/100 WBC (Bld) 41.1 % Critically low 43.0-75.0 [facility] Comment on above: Performed By: #### C BC #### [facility] [address] [place] [address] Dr. Suraj Choe Platelet mean volume (Bld) [Entitic vol] 9.6 fL Normal 9.5-13.5 [facility] Comment on above: Performed By: #### C BC #### [facility] [address] [place] [address] Dr. Suraj Choe PLT 309 103/ul Normal 150-450 [facility] Comment on above: Performed By: #### C BC #### [facility] [address] [place] [address] Dr. Suraj Choe RBC 4.46 106/ul Normal 4.20-5.40 [facility] Comment on above: Performed By: #### C BC #### [facility] [address] [place] [address] Dr. Suraj Choe WBC 4.2 103/ul Normal 4.0-11.0 [facility] Comment on above: Performed By: #### C BC #### [facility] [address] [place] [address] ABD/PELVIS WO CONon [...] SAIRA VAUGHAN Date: 2022-01-31 17:03 Normal [facility] CT HEAD WO CONon 01-31-2022 CT HEAD [...] SAIRA VAUGHAN Date: 2022-01-31 17:06 Normal [facility] CULTURE URINEon 01-31-2022 CULTURE URINE Culture Observations : MODERATE GROWTH OF MIXED GENITAL JEAN PAUL. NO POTENTIAL PATHOGENS SEEN. Normal [facility] Comment on above: Performed By: #### U RCX ####[facility] [address] [place], [place] [address]OhGemma Suraj Дмитрий Covid-19 PCR (CVDTB)on 01-15 SARS-CoV-2 (COVID-19) RNA JERRY+probe Ql (Unsp spec) Not detected Normal NOT DETECTED [facility] Comment on above: Result Comment: This test is not yet approved or cleared by the [place] FDA. When there are no FDA-approved or cleared tests available, and other criteria are met, FDA can make tests available under an emergency access mechanism called an Emergency Use Authorization (EUA). The EUA for this test is supported by the Cardiac Exercise Physiologist of Health and Human Service's (HHS's) declaration [...] consistent with SARS-CoV-2. Performed By: #### [facility] #### [facility] [address] [address] [address] Suraj Choe ER URINE PROFILEon 2 Bilirubin Ql (U) Negative Normal NEGATIVE [facility] Comment on above: Performed By: #### GENA AGUILA ####[facility] [address] [address]DrGemma Choe Clarity (U) SL CLOUDY Abnormal CLEAR [facility] Comment on above: Performed By: #### PAN AGUILARO ####[facility] [address] [address]DrGemma Choe Color (U) LT. YELLOW Normal YELLOW [facility] Comment on above: Performed By: #### Flori MONTANEZ UMICRO ####[facility] [address] [address]Dr. Suraj YID A micrscopic examination will be performed if indicated. Normal [facility] Comment on above: Performed By: #### Flori MONTANEZ UMICRO ####[facility] [address] [address]DrGemma Choe Glucose Ql (U) Negative Normal NEGATIVE [facility] Comment on above: Performed By: #### Flori MONTANEZ UMICRO ####[facility] [address] [address]Dr. Suraj Choe Hemoglobin Ql (U) MODERATE Abnormal NEGATIVE [facility] Comment on above: Performed By: #### Flori MONTANEZ UMICRO ####[facility] [address] [place], [place] [address]Dr. Suraj Choe Ketones Ql (U) Negative Normal NEGATIVE [facility] Comment on above: Performed By: #### Flori MONTANEZ UMICRO ####[facility] [address] [place], [place] [address]Dr. Suraj Choe LEUKOCYTES MODERATE Abnormal NEGATIVE [facility] Comment on above: Performed By: #### Flori MONTANEZ UMYECENIARO ####[facility] L[address] [place], [place] [address]Dr. Suraj Choe Nitrite Ql (U) Negative Normal NEGATIVE [facility] Comment on above: Performed By: #### PAN AGUILARO ####[facility] Rrhemp[address] [place], [place] [address]Dr. Suraj Choe pH (U) 6.0 [pH] Normal 5-9 [facility] Comment on above: Performed By: #### PAN AGUILARO ####[facility] X[address] [place], [place] [address]Dr. Suraj Choe SPEC GRAVITY 1.015 Normal 1.005-<=1.025 [facility] Comment on above: Performed By: #### FATOU AGUILAICRO ####[facility] [address] [place], [place] [address]Dr. Suraj Choe UA PROTEIN Negative Normal NEGATIVE/ TRACE [facility] Comment on above: Performed By: #### PAN AGUILARO ####[facility] [address] [place], [place] [address]Dr. Suraj Choe UR MICRO IND INDICATED Normal [facility] Comment on above: Performed By: #### PAN AGUILARO ####[facility] [address] [address]Dr. Suraj Choe Urobilinogen Qn (U) 1.0 {Dhiraj'U}/dL Normal 0.2 - 1. 0 [facility] Comment on above: Performed By: #### E GENA MONTANEZ ####[facility] [address] [place], [place] [address]Dr. Suraj Choe INFLUENZA A AND B AGon 01-31 INFLUANEGH SEE BELOW Normal [facility] Comment on above: Result Comment: Nega tive for Flu A protein angiten. Infection due to Flu A cannot be ruled out. Flu A angiten in the sample may be below the detection limit of the test. Performed By: #### I NFLUAB ####[facility] [address] [place], [place] [address]Dr. Suraj Choe INFLUBNEGH SEE BELOW Normal [facility] Comment on above: Result Comment: Nega tive for Flu B protein antigen. Infection due to Flu B cannot be ruled out. Flu B antigen in the sample may be below the detection limit of the test. Performed By: #### I NFLUAB ####[facility] [address] [place], [place] [address]Dr. shy [facility] INFLUENZA A AG Negative Normal NEGATIVE SEE COMMENT [facility] Comment on above: Performed By: #### I NFLUAB ####[facility] [address] [place], [place] [address]Dr. Suraj Choe INFLUENZA B AG Negative Normal NEGATIVE SEE COMMENT [facility] Comment on above: Performed By: #### I NFLUAB ####[facility] [address] [place], [place] [address]Dr. Suraj Choe INTERNAL CONTROLS Within Normal Limits Normal Wi thin Normal Limits [facility] Comment on above: Performed By: #### I NFLUAB ####[facility] [address] [place], [place] [address]Dr. Suraj Choe LIPASEon 01-31-2022 Lipase [Catalytic activity/Vol] 142.0 U/L Normal 73.0-393.0 [facility] Comment on above: Performed By: #### C MADM, LIPA, CMP #### [facility] [address] [place] [address] Dr. Suraj Choe PROF 14(COMP METB)on 022 Albumin [Mass/Vol] 3.7 g/dL Normal 3.4-5.0 [facility] Comment on above: Performed By: #### C MADM, LIPA, CMP #### [facility] [address] [place] [address] Dr. Suraj Choe Albumin/Globulin [Mass ratio] 1.0 {ratio} Normal [facility] Comment on above: Performed By: #### C MADM, LIPA, CMP #### [facility] [address] [place] [address] Dr. Suraj Choe ALP [Catalytic activity/Vol] 78 U/L Normal 46-116 [facility] Comment on above: Performed By: #### C MADM, LIPA, CMP #### [facility] [address] [place] [address] Dr. Suraj Choe ALT [Catalytic activity/Vol] 12 U/L Critically low 14-59 [facility] Comment on above: Performed By: #### C MADM, LIPA, CMP #### [facility] [address] [place] [address] Dr. Suraj Choe Anion gap [Moles/Vol] 6.3 mmol/L Normal [facility] Comment on above: Performed By: #### C MADM, LIPA, CMP #### [facility] [address] [place] [address] Dr. Suraj Choe AST [Catalytic activity/Vol] 23 U/L Normal 15-37 [facility] Comment on above: Performed By: #### C MADM, LIPA, CMP #### [facility] [address] [place] [address] Dr. Suraj Choe Bilirubin [Mass/Vol] 0.5 mg/dL Normal 0.2-1.0 [facility] Comment on above: Performed By: #### C MADM, LIPA, CMP #### [facility] [address] [place] [address] Dr. Suraj Choe Calcium [Mass/Vol] 9.7 mg/dL Normal 8.5-10.1 [facility] Comment on above: Performed By: #### C DANIEL BAKER, CMP #### [facility] [address] [address] [address] Suraj Choe Chloride [Moles/Vol] 106 mmol/L Normal 98-107 [facility] Comment on above: Performed By: #### C BERONICA BAKERA, CMP #### [facility] [address] [address] [address] Suraj Choe CO2 [Moles/Vol] 30.9 mmol/L Normal 21.0-32.0 [facility] Comment on above: Performed By: #### C DANIEL BAKER, CMP #### [facility] [address] [place] [address] Dr. Suraj Choe Creatinine [Mass/Vol] 0.71 mg/dL Normal 0.55-1.02 [facility] Comment on above: Performed By: #### C BERONICA BAKERA, CMP #### [facility] [address] [place] [address] Dr. Suraj Choe EGFR-AF TRISTANIAN >60 Normal >=60 [facility] Comment on above: Performed By: #### C DANIEL BAKER, CMP #### [facility] [address] [place] [address] Dr. Suraj Choe EGFR-NON AF TRISTANIAN >60 Normal >=60 [facility] Comment on above: Performed By: #### C BERONICA BAKERA, CMP #### [facility] [address] [place] [address] Dr. Suraj Choe Globulin (S) [Mass/Vol] 3.7 g/dL Normal [facility] Comment on above: Performed By: #### C BERONICA BAKERA, CMP #### [facility] [address] [place] [address] Dr. Suraj Choe Glucose [Mass/Vol] 92 mg/dL Normal 74-106 [facility] Comment on above: Performed By: #### C BERONICA BAKERA, CMP #### [facility] [address] [address] [address] Suraj Choe Potassium [Moles/Vol] 4.2 mmol/L Normal 3.5-5.1 [facility] Comment on above: Performed By: #### C DANIEL BAKER, CMP #### [facility] [address] [address] [address] Suraj Choe Protein [Mass/Vol] 7.4 g/dL Normal 6.4-8.2 [facility] Comment on above: Performed By: #### C DANIEL BAKER, CMP #### [facility] [address] [address] [address] Suraj Choe Sodium [Moles/Vol] 139 mmol/L Normal 136-145 [facility] Comment on above: Performed By: #### C DANIEL BAKER, CMP #### [facility] [address] [address] [address] Suraj Choe Urea nitrogen [Mass/Vol] 20.0 mg/dL Critically high 7.0-18.0 [facility] Comment on above: Performed By: #### C DANIEL BAKER, CMP #### [facility] [address] [address] [address] Suraj Choe Urea nitrogen/Creatinine [Mass ratio] 28.2 mg/mg Normal [facility] Comment on above: Performed By: #### C DANIEL BAKER, CMP #### [facility] [address] [address] [address] Suraj Choe PROTIMEon 01-31-2022 INR Coag (PPP) [Relative time] 1.10 {INR} Normal [facility] Comment on above: Performed By: #### P TT, PT ####[facility] [address] [address]Dr. Suraj Choe INR GUIDELINES SEE BELOW Normal [facility] Comment on above: Result Comment: ANANYA RED INR: 2.0 - 3.0 CONDITIONS NOT LISTED BELOW 2.5 - 3.5 FOR PROSTHETIC HEART VALVE REPLACEMENT 2.5 - 3.5 RECURRENT THROMBOSIS Performed By: #### P TT, PT ####[facility] [address] [address]Dr. Suraj Choe PT Coag (PPP) [Time] 11.8 s Critically high 9.0-11.6 [facility] Comment on above: Performed By: #### P TT, PT ####[facility] [address] [address]Dr. Suraj Choe PTTon 01-31-2022 aPTT Coag (Bld) [Time] 26.5 s Normal 22.3-36.2 [facility] Comment on above: Performed By: #### P TT, PT ####[facility] [address] [place], [place] [address]Dr. Suraj Choe URINE MICROSCOPIC ONLYon BACTERIA SMALL Abnormal NONE SEEN [facility] Comment on above: Performed By: #### Flori MONTANEZ UMICRO ####[facility] [address] [place], [place] [address]Dr. Suraj Choe Bacteria identified Cx Nom (U) INDICATED Normal [facility] Comment on above: Performed By: #### Flori MONTANEZ UMICRO ####[facility] [address] [place], [place] [address]Dr. Suraj Choe CAST NONE SEEN Normal NONE SEEN [facility] Comment on above: Performed By: #### Flori MONTANEZ UMICRO ####[facility] [address] [place], [place] [address]Dr. Suraj Choe Crystals LM Nom (Urine sed) NONE SEEN Normal NONE SEEN [facility] Comment on above: Performed By: #### Flori MONTANEZ UMICRO ####[facility] [address] [place], [place] [address]Dr. Suraj Choe Epithelial cells LM Ql (Urine sed) MODERATE Abnormal NONE SEEN /RARE [facility] Comment on above: Performed By: #### E RUR UMICRO ####[facility] [address] [place], [place] [address]Dr. Suraj Choe MUCOUS NONE SEEN Normal NONE SEEN [facility] Comment on above: Performed By: #### E RUR, UMICRO ####[facility] [address] [place], [place] [address]Ci. Suraj Choe RBC 0-2 Normal 0-2 [facility] Comment on above: Performed By: #### GENA AGUILA ####[facility] [address] [place], [place] [address]Hq. Suraj Choe WBC 2-5 Abnormal NONE SEEN [facility] Comment on above: Performed By: #### GENA AGUILA ####[facility] [address] [place], [place] [address]Gq. Suraj Choe XR CHEST 1 Von 01-31-2022 [...] SANIYA VICTOR Date: 2022-01-31 16:59 Normal [facility] CBC AUTO DIFFon 08-22-2021 BASO # 0.0 103/ul Normal 0.0-0.1 [facility] Comment on above: Performed By: #### C BC #### [facility] [address] [place] [address] Dr. Suraj Choe Basophils/100 WBC (Bld) 0.9 % Normal 0.2-2.0 [facility] Comment on above: Performed By: #### C BC #### [facility] [address] [place] [address] Dr. Suraj Choe EO # 0.1 103/ul Normal 0.0-0.7 [facility] Comment on above: Performed By: #### C BC #### [facility] [address] [address] [address] Suraj Choe Eosinophils/100 WBC (Bld) 1.3 % Normal 0.9-7.0 [facility] Comment on above: Performed By: #### C BC #### [facility] [address] [place] [address] Dr. Suraj Choe Erythrocyte distribution width (RBC) [Ratio] 13.5 % Normal 11.0-15.0 [facility] Comment on above: Performed By: #### C BC #### [facility] [address] [place] [address] Dr. Suraj Choe Hematocrit (Bld) [Volume fraction] 40.5 % Normal 36.0-48.0 [facility] Comment on above: Performed By: #### C BC #### [facility] [address] [place] [address] Dr. Suraj Choe Hemoglobin (Bld) [Mass/Vol] 12.7 g/dL Normal 12.0-16.0 [facility] Comment on above: Performed By: #### C BC #### [facility] [address] [place] [address] Dr. Suraj Choe IG # 0.01 10e3/ul Normal 0.00-0.03 [facility] Comment on above: Performed By: #### C BC #### [facility] [address] [place] [address] Dr. Suraj Choe IG % 0.2 % Normal 0.0-0.5 [facility] Comment on above: Performed By: #### C BC #### [facility] [address] [place] [address] Dr. Suraj Choe LYMPH # 1.9 103/ul Normal 1.2-3.8 [facility] Comment on above: Performed By: #### C BC #### [facility] [address] [place] [address] Dr. Suraj Choe Lymphocytes/100 WBC (Bld) 42.8 % Normal 20.5-60.0 [facility] Comment on above: Performed By: #### C BC #### [facility] [address] [place] [address] Dr. Suraj Choe MANUAL DIFF REQ NO Normal [facility] Comment on above: Performed By: #### C BC #### [facility] [address] [place] [address] Dr. Suraj Choe MCH (RBC) [Entitic mass] 27.9 pg Normal 26.7-34.0 [facility] Comment on above: Performed By: #### C BC #### [facility] [address] [place] [address] Dr. Suraj Choe MCHC (RBC) [Mass/Vol] 31.4 g/dL Normal 29.9-35.2 [facility] Comment on above: Performed By: #### C BC #### [facility] [address] [place] [address] Dr. Suraj Choe MCV (RBC) [Entitic vol] 88.8 fL Normal 81.0-99.0 [facility] Comment on above: Performed By: #### C BC #### [facility] [address] [place] [address] Dr. Suraj Choe MONO # 0.3 103/ul Normal 0.3-0.8 [facility] Comment on above: Performed By: #### C BC #### [facility] [address] [place] [address] Dr. Suraj Choe Monocytes/100 WBC (Bld) 7.1 % Normal 1.7-12.0 [facility] Comment on above: Performed By: #### C BC #### [facility] [address] [place] [address] Dr. Suraj Choe NEUT # 2.2 103/ul Normal 1.4-6.5 [facility] Comment on above: Performed By: #### C BC #### [facility] [address] [place] [address] Dr. Suraj Choe Neutrophils/100 WBC (Bld) 47.7 % Normal 43.0-75.0 [facility] Comment on above: Performed By: #### C BC #### [facility] [address] [place] [address] Dr. Suraj Choe Platelet mean volume (Bld) [Entitic vol] 9.4 fL Critically low 9.5-13.5 [facility] Comment on above: Performed By: #### C BC #### [facility] [address] [place] [address] Dr. Suraj Choe PLT 279 103/ul Normal 150-450 [facility] Comment on above: Performed By: #### C BC #### [facility] [address] [address] [address] Suraj Choe RBC 4.56 106/ul Normal 4.20-5.40 [facility] Comment on above: Performed By: #### C BC #### [facility] [address] [address] [address] Suraj Choe WBC 4.5 103/ul Normal 4.0-11.0 [facility] Comment on above: Performed By: #### C BC #### [facility] [address] [address] [address] Suraj Choe PROF CHEM 8 (BAS METB)on Anion gap [Moles/Vol] 10.2 mmol/L Normal [facility] Comment on above: Performed By: #### B MP ####[facility] [address] [address]DrGemma Choe Calcium [Mass/Vol] 9.3 mg/dL Normal 8.5-10.1 [facility] Comment on above: Performed By: #### B MP ####[facility] [address] [address]DrGemma Choe Chloride [Moles/Vol] 106 mmol/L Normal 98-107 [facility] Comment on above: Performed By: #### B MP ####[facility] [address] [address]Dr. Suraj Choe CO2 [Moles/Vol] 28.7 mmol/L Normal 21.0-32.0 [facility] Comment on above: Performed By: #### B MP ####[facility] [address] [address]DrGemma Choe Creatinine [Mass/Vol] 0.76 mg/dL Normal 0.55-1.02 [facility] Comment on above: Performed By: #### B MP ####[facility] [address] [address]DrGemma Choe EGFR-AF TRISTANIAN >60 Normal >=60 [facility] Comment on above: Performed By: #### B MP ####[facility] [address] [address]Dr. Suraj Дмитрий EGFR-NON AF TRISTANIAN >60 Normal >=60 [facility] Comment on above: Performed By: #### B MP ####[facility] [address] [address]Dr. Surja Choe Glucose [Mass/Vol] 98 mg/dL Normal 74-106 [facility] Comment on above: Performed By: #### B MP ####[facility] [address] [address]Dr. Suraj Choe Potassium [Moles/Vol] 3.9 mmol/L Normal 3.5-5.1 [facility] Comment on above: Performed By: #### B MP ####[facility] [address] [place], [place] [address]Dr. Suraj Choe Sodium [Moles/Vol] 141 mmol/L Normal 136-145 [facility] Comment on above: Performed By: #### B MP ####[facility] [address] [place], [place] [address]Dr. Rachelshy Choe Urea nitrogen [Mass/Vol] 22.0 mg/dL Critically high 7.0-18.0 [facility] Comment on above: Performed By: #### B MP ####[facility] [address] [place], [place] [address]Dr. Suraj Choe Urea nitrogen/Creatinine [Mass ratio] 28.9 mg/mg Normal [facility] Comment on above: Performed By: #### B MP ####[facility] [address] [place], [place] [address]Dr. Suraj Дмитрий XR KUB 1 VIEWon 08-22-2021 [...] GARCIA Date: 2021-08-22 16:41 Normal [facility] Vital Signs Date Time Vital Sign Value Performing Clinician Chauncey bell 08-23-2024 16:21-0400 Body height 162.6 cm Shana RODAS Work Phone: [facility] 08-23-2024 16:21-0400 Body mass index (BMI) [Ratio] 26.61 kg/m2 Shana RODAS Work Phone: [facility] 08-23-2024 16:21-0400 Body weight 70.31 kg Shana RODAS Work Phone: [facility] 08-23-2024 16:21-0400 Diastolic blood pressure 86 mm[Hg] Shana RODAS Work Phone: [facility] 08-23-2024 16:21-0400 Heart rate 81 /min Shana RODAS Work Phone: [facility] 08-23-2024 16:21-0400 Systolic blood pressure 138 mm[Hg] Shana RODAS Work Phone: [facility] 07-26-2024 11:22-0400 Body height 162.6 cm Shana RODAS Work Phone: [facility] 07-26-2024 11:22-0400 Body mass index (BMI) [Ratio] 26.61 kg/m2 Shana RODAS Work Phone: [facility] 07-26-2024 11:22-0400 Body weight 70.31 kg Shana RODAS Work Phone: [facility] Encounters Encounter Date Encounter Type Care Provider Facility Start: 08-23-2024 End: 08-23-2024 Office outpatient visit 15 minutes Shana RODAS Work Phone: [facility] Comment on above: Cervical stump prola pse (Primary Dx) Start: 08-23-2024 End: 08-23-2024 ambulatory SHANA GRIMALDO [facility] Start: 08-02-2024 End: 08-02-2024 Telephone encounter Bernard Lundberg [facility] Start: 07-26-2024 End: 07-26-2024 Office outpatient visit 15 minutes Shana RODAS Work Phone: [facility] Comment on above: Microscopic hematuri a (Primary Dx); Female genital prolapse, unspecified type Start: 07-26-2024 End: 07-26-2024 ambulatory SHANA GRIMALDO [facility] Start: 05-02-2024 End: 05-02-2024 Emergency department patient visit PAIGE M Constanza [facility] Start: 09-07-2023 End: 09-07-2023 Emergency department patient visit PAIGE M Constanza [facility] Start: 06-15-2022 End: 06-16-[address] TYRESE PATEL . Facility:[facility] Start: 03-07-2022 End: 03-07-[address] PAIGE HUNG . Facility:[facility] Start: 02-23-2022 End: 02-24-[address] PAIGE HUNG . Facility:[facility] Start: 01-31-2022 End: 01-31-[address] PAIGE HUNG . Facility:[facility] Start: 08-22-2021 End: 08-22-[address] PAIGE HUNG . Facility: Procedures Date Procedure Procedure Detail Performing Clinician Start: 07-26-2024 Urnls dip stick/tabl et rgnt auto w/o microscopy Shana RODAS Work Phone: Plan of Treatment Date Care Activity Detail Author Start: 08-23-2025 Tobacco Screening Tobacco Screening [facility] Start: 07-26-2025 Tobacco Screening Tobacco Screening [facility] Start: 11-22-2024 End: 11-22-2024 Patient encounter procedure 11/22/2024 4:15 PM EDT Office Visit [facility] [address] [place] [address] [facility] [place] [id number] Shana Grimaldo PA [address] [place] [address] [facility] Start: 11-08-2024 End: 11-08-2024 Patient encounter procedure 11/08/2024 10:45 AM EDT Office Visit [facility] [address] [place] [address] [place] [address] Shana Grimaldo PA [facility] [place] [address] [facility] Start: 10-16-2024 Influenza vaccination Influenza Vacc ine [facility] Start: 10-17-2023 COVID-19 Vaccine ( season) COVID-19 Vaccine ( season) [facility] Start: 2009 Fall Risk Screening Fall Risk Screen ing [facility] Start: 05-26-1963 DTaP,Tdap and Td Vaccines (1 - Tdap) DTaP,Tdap and Td Vaccines (1 - Tdap) [facility] Start: 1956 Depression Screening Depression Scre ening [facility] Immunizations Immunization Date Immunization Notes Care Provider Fa cility 09-29-2021 influenza virus vaccine, unspecified formulation Shana RODAS Work Phone: [facility] 05-10-2020 COVID-19, mRNA, LNP- S, PF, 100mcg/0.5mL Dose Shana RODAS Work Phone: [facility] 04-12-2020 COVID-19, mRNA, LNP- S, PF, 100mcg/0.5mL Dose Shana RODAS Work Phone: [facility] Payers Date Payer Category Payer Medicare HMO [employer] [id number] 1960 Medicare [id number] 1960 Medicare [id number] 1945 Unknown [id number] 593 1944 Unknown [id number] [id number]. 593 1944 Unknown [id number] [id number]. 593 1944 Unknown [id number] [id number]. 593 1944 Unknown [id number] [id number]. 593 1944 Unknown [id number] [id number]. 1286 1944 Unknown [id number] [id number]. 1286 1944 Unknown [id number] [id number]. 1286 1944 Unknown [id number]. 1286 Social History Date Type Detail Facility Start: 02-25-2022 Tobacco smoking stat [facility] Never smoked tobacco [facility] Start: 02-25-2022 Tobacco use and exposure Smokeless tobacco non-user [facility] Start: 07-26-2024 End: 08-23-2024 Alcoholic beverage intake Current non-drinker of alcohol (finding) [facility] Start: 02-27-2020 End: 07-26-2024 History of Social function [facility] Start: 02-27-2020 End: 07-26-2024 Tobacco use panel [facility] Childcare Unknown [facility] Start: 1945 Sex assigned at Not on file P [facility] Start: 09-20-2014 Sex Female (finding) [facility] Clinical Notes 07-26-2024 to 08-23-2024 ADRIANNA Sanchez - 08/23/2024 4:15 PM EDTTelephone Encounter - Bernard Tamika - 08/02/2024 1:13 PM EDTTelephone Encounter - ADRIANNA Sanchez - 08/02/2024 1:13 PM EDT Note Date & Type Note Facility 08-23-2024 History of Presen t illness Narrative Images from the original note were not included. [address] [place] [address] [address] [facility] [id number] Patient: Alysha Morton Date of : 1945 Encounter Date: 08/23/2024 History of Present Illness: The patient is a 79 y.o. female, an established patient, and is here for pessary placement. Please see her history below. We received a call on 08/02/2024 from [facility] stating that the patient was in the ER for pain from the pessary. They were able to remove the pessary. We tried to call for an update, but we are not able to get through to her. She actually reports that she went to the ER for unrelated reasons. She is adamant that she was not have any problems with the pessary. She states that once they found out it was there, they wanted to remove it. That her urinary frequency and incontinence are much improved with the pessary in place. She would like to have it inserted again. I was able to insert the pessary without difficulty. I provided her with a refill for the Trimosan gel Summary of old records: notes from me 07/26/2024: Recently she has had increased urinary frequency. She denies any dysuria or gross hematuria. She felt the pessary helped with her frequency in the past and is requesting to have it replaced today. She brought it with her. I inserted the #4 ring with support. She tolerated the procedure without problems. Summary of old records: Notes from [place] 01/27/23: She is overdue for her pessary maintenance. Please see her history below. She is not had any vaginal bleeding or excessive vaginal discharge. She try to remove the pessary last night for intercourse but was unable to remove it. She denies any gross hematuria No urologic concerns at this time. Summary of old records: Notes from [place] 02/25/22: She has noticed some increased urinary [...] well. Summary of old records: Notes from [place] 01/14/22: Overall she is doing well with the pessary. She did run out of the Trimosan gel a few weeks ago and has noticed an odor. She has not had any bleeding or pain. Although she is doing well, she requested to have the pessary out for one month She denies any gross hematuria. No other Urologic concerns at this time. Summary of old records: Notes from [place] 10/08/21: She did undergo cystoscopy 07/08/2021. No [...] Complaint: Summary of old records: Notes from [place] 05/21/2021: Microscopic UA on 05/07/2021 showed 6 red blood cells and 3 white blood cells. Culture was negative. She has never smoked. She denies any history kidney stones. She denies any gross hematuria. She is not on any blood thinners. She is still [...] difficulty. Summary of old records: Notes from me 05/07/2021: Recently she has noticed a vaginal bulge. It sounds like she saw 2 separate pool hand and was told that everything looked fine. She has also had several months of urinary frequency and urgency. She denies any gross hematuria, dysuria, or incontinence. Postvoid residual as measured by bladder scan is 0 cc Urinalysis today: No results for input(s): EXTPOCURCO , EXTPOCURCH , EXTPOCAPP , EXTPOCURBS , EXTPOCURBIL , EXTPOCUKET , EXTPOCUSPG , EXTPOCUHGB , EXTPOCUPRO , EXTPOCUURO , EXTPOCULEU , EXTPOCUNIT , EXTPOCUWBC , EXTPOCUBLD , EXTPOCURBC , EXTPOCUCRY , EXTPOCUBAC , EXTPOCUTREP , EXTPOCUPH in the last 72 hours. Last BUN and creatinine: Lab Results Component Value Date BUN 16 09/07/2023 Lab Results Component Value Date CREATININE 0.78 09/07/2023 Past Medical, Family, and Social History Update: The following portions of the patient's history were reviewed and updated as appropriate: allergies, current medications, past family history, past medical history, past social history, past surgical history and problem list. Past Medical History: Diagnosis Date Arthritis Diverticulosis GERD (gastroesophageal reflux disease) Hyperlipidemia Past Surgical History: Procedure Laterality Date CYSTOSCOPY N/A 07/08/2021 Performed by Terry Cox MD at [facility] HYSTERECTOMY OOPHORECTOMY Family History Problem Relation Age [...] breath. Gastrointestinal: Positive for constipation Physical Exam: BP 138/86 Pulse 81 Ht 162.6 cm (5' 4 ) Wt 70.3 kg (155 lb) BMI 26.61 kg/m Constitutional: She appears well-developed. No distress. Pulmonary/Chest: Effort normal. No respiratory distress. Neurological: She is alert and oriented for age. Gait normal. Nursing note and vitals reviewed. Assessment and Plan: Alysha was seen today for pessary care. Diagnoses and all orders for this visit: Cervical stump prolapse Problem List Genitourinary Female genital prolapse - Primary Overview 05/07/21: Cystocele on exam. She is [...] to have it replaced. 07/26/24: Pessary replaced 08/23/24: Pessary was removed in the ER, per request I reinserted it today. She reports that she is doing very well with the pessary. Follow-up: Cancel 11/08 and see me in early Nov for pessary change ADRIANNA SANCHEZ This note was created with the assistance of a speech recognition program. While intending to generate a timely document that accurately reflects the content of the visit, no guarantee can be provided that every grammatical or spelling mistake has been or will be identified or corrected. Thank you for your understanding. ADRIANNA Sanchez 08/23/24 1714 documented in this encounter [facility] 08-02-2024 Miscellaneous Notes Formattin g of this note might be different from the original. Nurse from [facility] called in for pt, stating pt came in due to discomfort from balloon placed by our office Stated they were not comfortable with removing and requested pt to be seen by us. Stated pt did not know what was causing discomfort Transferred call to [facility] in [place] I put in a pessary. I can see her today but am at the [place] office. I am not in [place] until next week Tonya called back and was informed. They asked me to spell pessary for them. They asked if pt can walk in to the office to get the pessary removed. Discussed with Shana Grimaldo PA-C. Explained to them that removing the pessary would only take 1 minute and asked if there was anyone at the [facility] that could remove the pessary since the drive from there to [place] seems unnecessary. Tonya put me on hold to discuss with the doctor. Tonya will discuss with MD when he is out of the room. [phone] I called back and spoke with Tonya since it was over an hour since we had talked. She states that the MD at the ER was able to remove the pessary. Thank you. documented in this encounter [facility] 08-02-2024 Telephone encount er Note Nurse from [facility] called in for pt, stating pt came in due to discomfort from balloon placed by our office Stated they were not comfortable with removing and requested pt to be seen by us. Stated pt did not know what was causing discomfort Transferred call to Kimberli in [place] [facility] 08-02-2024 Telephone encount er Note I put in a pessary. I can see her today but am at the [place] office. I am not in [place] until next week [facility] 08-02-2024 Telephone encount er Note Tonya called back and was informed. They asked me to spell pessary for them. They asked if pt can walk in to the office to get the pessary removed. Discussed with Shana Grimaldo PA-C. Explained to them that removing the pessary would only take 1 minute and asked if there was anyone at the [facility] that could remove the pessary since the drive from there to [place] seems unnecessary. Tonya put me on hold to discuss with the doctor. Tonya will discuss with MD when he is out of the room. [phone] [facility] 08-02-2024 Telephone encount er Note I called back and spoke with Tonya since it was over an hour since we had talked. She states that the MD at the ER was able to remove the pessary. Thank you. [facility] 07-26-2024 Evaluation + Plan note Associated Problem(s): Female genital prolapse We will [...] needs to be removed before her follow-up [facility] 07-26-2024 Miscellaneous Notes Associate d Problem(s): Female genital prolapse We will see [...] before her follow-up documented in this encounter [facility] 07-26-2024 History of Presen t illness Narrative Images from the original note were not included. [address] [place] [id number] Patient: Alysha Morton Date of : 1945 Encounter Date: 07/26/2024 [...] problems. Summary of old records: Notes from [place] 01/27/23: She is overdue for her pessary maintenance. Please see her history below. She is not had any vaginal bleeding or excessive vaginal discharge. She try to remove the pessary last night for intercourse but was unable to remove it. She denies any gross hematuria No urologic concerns at this time. Summary of old records: Notes from [place] 02/25/22: She has noticed some increased urinary [...] well. Summary of old records: Notes from [place] 01/14/22: Overall she is doing well with the pessary. She did run out of the Trimosan gel a few weeks ago and has noticed an odor. She has not had any bleeding or pain. Although she is doing well, she requested to have the pessary out for one month She denies any gross hematuria. No other Urologic concerns at this time. Summary of old records: Notes from [place] 10/08/21: She did undergo cystoscopy 07/08/2021. No [...] Complaint: Summary of old records: Notes from [place] 05/21/2021: Microscopic UA on 05/07/2021 showed 6 red blood cells and 3 white blood cells. Culture was negative. She has never smoked. She denies any history kidney stones. She denies any gross hematuria. She is not on any blood thinners. She is still [...] difficulty. Summary of old records: Notes from [place] 05/07/2021: Recently she has noticed a vaginal bulge. It sounds like she saw 2 separate pool hand and was told that everything looked fine. [...] past medical history, past social history, past surgical history and problem list. Past Medical History: Diagnosis Date Arthritis Diverticulosis GERD (gastroesophageal reflux disease) Hyperlipidemia Past Surgical History: Procedure Laterality Date CYSTOSCOPY N/A 07/08/2021 Performed by Terry Cox MD at [facility] HYSTERECTOMY OOPHORECTOMY Family History Problem Relation Age [...] Wt 70.3 kg (155 lb) BMI 26.61 kg/m Constitutional: She appears well-developed. No distress. Pulmonary/Chest: [...] in 3 months for pessary maintenance ADRIANNA SANCHEZ This note was created with the assistance of a speech recognition program. While intending to generate a timely document that accurately reflects the content of the visit, no guarantee can be provided that every grammatical or spelling mistake has been or will be identified or corrected. Thank you for your understanding. ADRIANNA Sanchez 07/26/24 1414 documented in this encounter [facility] Evaluation note Diagnosis Microscopic hematuria- Primary Female genital prolapse, unspecified type Microscopic hematuria- Primary Female genital prolapse, unspecified type Female genital prolapse, unspecified type- Primary Microscopic hematuria- Primary Female genital prolapse, unspecified type documented in this [facility] Diagnosis Microscopic hematuria- Primary Female genital prolapse, unspecified type Microscopic hematuria- Primary Female genital prolapse, unspecified type Female genital prolapse, unspecified type- Primary Microscopic hematuria- Primary Female genital prolapse, unspecified type Cervical stump prolapse- Primary [facility] filedocumented in [facility] filedocumented in this encounter [facility] Summary Purpose Family History No Family History Records FoundNo Family History Records FoundNo Family History Records Found Advance Directives No Advanced Directives Records FoundNo Advanced Directives Records FoundNo Advanced Directives Records Found Additional Source Comments INFORMATION SOURCE (unrecogn ized section and content) DATE CREATED AUTHOR 06/20/2022 [facility] DATE CREATED AUTHOR AUTHOR'S ORGANIZ ATION 05/04/2024 [facility] DATE CREATED AUTHOR AUTHOR'S ORGANIZ ATION 08/27/2024 [facility] Reason for Visit (unrecogniz ed section and content) Reason Comments Urinary Frequency Reason Comments Pessary Care Care Teams (unrecognized sec tion and content) Office Mover Relationship Specialty Start Date End Date Paige Hung MD PCP - General Family Medicine 09/07/23 Office Mover Relationship Specialty Start Date End Date Paige Hung MD PCP - General Family Medicine 09/07/23 FOR RECORDS PERTAINING TO PATIENTS WHO ARE [...] BE BASED ON THE PRIMARY CLINICAL RECORDS. [facility] [employer] [facility]. provides no warranty or guarantee of the accuracy or completeness of information in this document.
[2024-09-22 12:42] LABS: Cast Seen? NONE SEEN #/LPF (NONE SEEN); Crystals Seen? None Seen #/HPF (None Seen)
--- NOTE | 2024-09-22 13:09 | PC.NURSE ---
pt had a pessary placed 2 weeks ago. saw blood when she wiped this morning after peein. unsure if bleeding is from vagina or urethra
== END 2024-09-22 14:23 | disposition home or self-care (01) ==
PROVIDERS: Emergency Provider Emergency Medicine; PCP Family Medicine
DX: N93.8 Other specified abnormal uterine and vaginal bleeding (principal); Z96.0 Presence of urogenital implants
CPT/HCPCS: 81001; 99283